=== PATIENT | female | born 1940 | race Caucasian/White ===

== ENCOUNTER → 2020-04-08 10:56 | Outpatient (CLI) | payer OTHER, SELFPAY ==
--- NOTE | 2020-04-08 | DI.RAD.S_ITS ---
PROCEDURE: FL BARIUM SWALLOW INDICATIONS: COUGH COMPARISON: None. FINDINGS: Function: There is normal esophageal peristalsis. No elicited gastroesophageal reflux. Morphology: Air-contrast images demonstrate normal mucosal morphology. Single contrast views show no esophageal strictures, extrinsic mass effects, or diverticula. Limited images of the stomach demonstrate normal appearance. Note was made of a small noninflamed proximal transverse duodenal diverticulum, measuring approximately 4 cm in maximal dimension. IMPRESSION: Source of recurrent cough is not found. Incidental finding of a 4 cm proximal transverse duodenal diverticulum. These structures are generally asymptomatic unless inflamed. This diverticulum shows no evidence of inflammation or retention of internal debris. It is considered an incidental finding without need for follow-up. Dictated by: Dk Cabral M.D. on 04/08/2020 at 16:45 Approved by: Dk Cabral M.D. on 04/08/2020 at 16:48
== END ==
PROVIDERS: Family Provider Family Medicine; Referring Provider Internal Medicine Pulmonary Disease; Visit Provider Internal Medicine Pulmonary Disease
DX: R05 Cough (principal); K57.10 Diverticulosis of small intestine without perforation or abscess without bleeding
CPT/HCPCS: 74220

== ENCOUNTER → 2020-08-11 14:55 | Outpatient (CLI) | payer OTHER, SELFPAY ==
--- NOTE | 2020-08-11 14:57 | DI.MRI.S_ITS ---
PROCEDURE: MR CERVICAL SPINE WO CON INDICATIONS: Cervicalgia TECHNIQUE: Noncontrast sagittal T1 spin echo and T2 fast spin echo, sagittal STIR, foraminal oblique sagittal T2 fast spin echo, and axial gradient echo or T2 fast spin echo through the cervical spine. COMPARISON: None. FINDINGS: Image quality: Excellent. Alignment and Curvature: There is trace retrolisthesis of C5 on C6. Osseous fusion is present at C3-4. Bone Marrow: Marrow demonstrates normal overall signal. Spinal Cord: Visualized spinal cord has normal size and signal. No cerebellar tonsillar herniation. Paraspinous Soft Tissues: No paravertebral masses. Prevertebral soft tissues are normal in thickness. Discs: Moderate to severe desiccation is present throughout the cervical spine. C2-C3: Minimal disc bulge without spinal stenosis or foraminal narrowing. C3-C4: Mild disc bulge with mild spinal stenosis. No foraminal narrowing. C4-C5: Mild disc bulge with superimposed posterior left posterior paracentral protrusion. There is moderate spinal stenosis. There is compromise of the left lateral recess secondary to protrusion. Moderate left foraminal narrowing and uncovertebral hypertrophy. C5-C6: Mild disc bulge with moderate to severe spinal stenosis. Mild bilateral foraminal narrowing with uncovertebral hypertrophy. C6-C7: Mild disc bulge with minimal spinal stenosis. Mild left and minimal to mild right foraminal narrowing with uncovertebral hypertrophy. C7-T1: Minimal disc bulge without mass spinal stenosis. Mild to moderate right foraminal narrowing with uncovertebral hypertrophy parietal IMPRESSION: 1. Multilevel disc bulges noting posterior central protrusion and C4-5. The latter is causing compromise the left lateral recess. 2. Foraminal narrowing most prominent at C4-5 secondary to uncovertebral arthropathy. Dictated by: Althea Jaramillo M.D. on 08/12/2020 at 9:57 Approved by: Althea Jaramillo M.D. on 08/12/2020 at 10:18
== END ==
PROVIDERS: Family Provider Family Medicine; PCP Family Medicine; Referring Provider Family Medicine; Visit Provider Family Medicine
DX: M50.221 Other cervical disc displacement at C4-C5 level (principal); M47.812 Spondylosis without myelopathy or radiculopathy, cervical region; M48.02 Spinal stenosis, cervical region; G62.9 Polyneuropathy, unspecified
CPT/HCPCS: 72141

== ENCOUNTER → 2020-12-11 11:36 | Outpatient (CLI) | payer OTHER, SELFPAY | PROVIDERS: Family Provider Family Medicine; PCP Family Medicine; Referring Provider Family Medicine; Visit Provider Family Medicine | DX: Z78.0 Asymptomatic menopausal state (principal); Z90.722 Acquired absence of ovaries, bilateral | CPT/HCPCS: 77080 ==

== ENCOUNTER → 2021-01-20 16:38 | Outpatient (CLI) | payer OTHER, SELFPAY ==
--- NOTE | 2021-01-20 16:40 | DI.MG.S_ITS ---
BILATERAL DIGITAL SCREENING MAMMOGRAM 3D/2D WITH CAD: 01/20/2021 CLINICAL: Routine screening. Family history of breast cancer. Comparison is made to exams dated: 11/27/2019 mammogram, 08/09/2018 mammogram, 07/19/2017 mammogram, 07/10/2015 mammogram, and 04/07/2013 mammogram - [facility]. The tissue of both breasts is predominantly fatty. Current study was also evaluated with a Computer Aided Detection (CAD) system. There are benign calcifications in both breasts. No significant masses, calcifications, or other findings are seen in either breast. There has been no significant interval change. IMPRESSION: BENIGN There is no mammographic evidence of malignancy. A 1 year screening mammogram is recommended. This exam was interpreted at Station ID: [id number]. NOTE: For mammograms, a report in lay terms will be sent to the patient. Approximately 15% of breast malignancies will not be visualized mammographically. In the management of a palpable breast mass, a negative mammogram must not discourage biopsy of a clinically suspicious lesion. Electronically Signed By: Gerardo de león/avtar:01/21/2021 09:26:34 letter sent: Normal Exam ACR BI-RADS Category 2: Benign Finding(s) 3342F
== END ==
PROVIDERS: Family Provider Family Medicine; PCP Family Medicine; Referring Provider Family Medicine; Visit Provider Family Medicine
DX: Z12.31 Encounter for screening mammogram for malignant neoplasm of breast (principal); Z80.3 Family history of malignant neoplasm of breast
CPT/HCPCS: 77063; 77067

== ENCOUNTER → 2021-04-22 09:50 | Outpatient (CLI) | payer OTHER, SELFPAY ==
[2021-04-22 11:56] LABS: COVID19 -Nasal RAPID Negative (Negative)
== END ==
PROVIDERS: Family Provider Family Medicine; PCP Family Medicine; Visit Provider Surgery
DX: Z01.812 Encounter for preprocedural laboratory examination (principal); Z20.822 Contact with and (suspected) exposure to COVID-19; R10.13 Epigastric pain
CPT/HCPCS: 87635; 99213

== ENCOUNTER 2021-04-25 06:36 | Day surgery (SDC) | payer OTHER, SELFPAY ==
[2021-04-25] VITALS (7 sets, daily range): BP systolic 89–144; BP diastolic 31–67; PULSE 57–63; RESP 12–20; TEMP 36.2–36.4; O2SAT 94–98; BMI 24.1
--- NOTE | 2021-04-25 | PATH_ITS ---
[facility] Accession Number: [id number] . 01 Material submitted: . PART A: gastrointestinal site - ANTRUM PART B: gastrointestinal site - GASTRIC POLYPS PART C: esophagus - DISTAL ESOPHAGEAL BIOPSY . 02 Diagnosis: A. Stomach, Antrum, Biopsies: Antral mucosa with mild reactive gastropathy. Negative for Helicobacter by immunohistochemistry. Negative for intestinal metaplasia. Negative for dysplasia and malignancy. . B. Stomach, Polyps, Biopsies: Fundic gland polyps. No evidence of Helicobacter on H/E stain. Negative for intestinal metaplasia. Negative for dysplasia and malignancy. . C. Distal Esophagus, Biopsy: Squamocolumnar junctional mucosa with mild active inflammation. Negative for intestinal metaplasia. Negative for dysplasia and malignancy. . MRV 04/29/2021 1419 Local . 02 Electronically signed: . Katie Glasgow MD, Pathologist NPI- [id number] . 01 Gross description: . Part A: ANTRUM: Received in formalin are 4 fragment(s) of gray, soft tissue measuring 0.3 x 0.3 x 0.2 cm to 0.1 x 0.1 x 0.1 cm submitted entirely in 1 cassette(s) Part B: GASTRIC POLYPS: Received in formalin are 2 fragment(s) of gray, soft tissue measuring 0.4 x 0.3 x 0.3 cm to 0.3 x 0.3 x 0.3 cm submitted entirely in 1 cassette(s) Part C: DISTAL ESOPHAGEAL BIOPSY: Received in formalin are 2 fragment(s) of gray, soft tissue measuring 0.4 x 0.3 x 0.1 cm to 0.3 x 0.3 x 0.2 cm submitted entirely in 1 cassette(s) /QBJ 04/26/2021 1222 Local . 02 Microscopic: . A. An immunohistochemical stain was performed to evaluate for Helicobacter organisms and is negative. The control stain showed appropriate reactivity. . C. An AB/PAS stain is performed to evaluate for fungal organisms and is negative. The control stain showed appropriate reactivity. . * This test was developed and its performance characteristics determined by [facility]. It has not been cleared or approved by the U.S. Food and Drug Administration. The FDA has determined that such clearance or approval is not necessary. This test is used for clinical purposes. It should not be regarded as investigational or for research. . 02 Pathologist provided ICD-10: R10.9 . 02 CPT . 075236, 545266, 093225, 818069, C25680 Performed at: 01 [facility] [address] [id number] MD Dwight Estrada MD Phone: [phone] Performed at: 02 [facility] [address] [place] [id number] MD Katie Glasgow MD Phone: [phone]
[2021-04-25] MEDS: LACTATED RINGERS 1,000 ML 84 ML IV (07:39)
--- NOTE | 2021-04-25 08:13 | PM.PREOP ---
Pre-operative Note COVID-19 COVID-19 status: Negative Result date/Date tested (Pos, Neg/Pending): 04/24/21 Interval Note History & Physical reviewed/Exam performed by Physician: Yes Changes to H&P: No ASA Class (for procedural sedation): II
[2021-04-25] MEDS: LIDOCAINE 4% SOLN 50 ML 20 ML TOP (08:25)
[2021-04-25] MEDS: fentaNYL 250 MCG/5 ML INJ IV (08:25)
--- NOTE | 2021-04-25 08:40 | PM.OP.EGD ---
Operative Date/Time/Diagnoses Date of procedure: 04/25/21 Time of procedure: 08:40 Pre-op diagnosis: Dyspepsia Post-op diagnosis: same Procedure & Clinicians Study performed: Esophagogastroduodenoscopy Same procedure as scheduled: Yes Indications: Dyspepsia Surgeon: Roger Perdomo Procedure Notes SCOAP/Timeout: Yes Procedure in detail: A timeout was performed. A bite blocked was placed. The patient was positioned in the left lateral decubitus position. The endoscope was inserted through the bite block and passed through the esophagus and stomach and into the duodenum. The duodenal mucosa appeared normal. Photograph was taken. The scope was withdrawn into the duodenal bulb and no abnormality was noted. The scope was withdrawn into the stomach. There was mild to moderate antritis. Random biopsies were taken of the antrum. The proximal stomach demonstrated numerous polyps. Biopsies were taken from to randomly selected polyps. The scope was retroflexed and no hiatal hernia was seen. The scope was withdrawn into the esophagus and a few short salmon-colored patches of mucosa were noted at the GE junction and biopsies were taken from the salmon-colored portion. The remainder of the esophagus was normal. The scope was withdrawn. The patient was awakened and brought to recovery. Sedation minutes: 14 Post-procedure Recommendations: Will call with biopsy results Disposition: PACU
[2021-04-25] MEDS: MIDAZOLAM 5 MG/5 ML VIAL IV (08:48)
--- NOTE | 2021-04-25 09:01 | SUR.PHASEI ---
SBAR report at bedside to Davina FIGUEROA.
--- NOTE | 2021-04-25 09:32 | SUR.PHASEII ---
PT ready for DC. stable on feet, independently dressed self. escorted to ed in by maryana amaro
== END 2021-04-25 09:33 | disposition home or self-care (01) ==
PROVIDERS: Family Provider Family Medicine; PCP Family Medicine; Referring Provider Surgery; Visit Provider Surgery
PROC: 0DJ08ZZ Inspection of Upper Intestinal Tract, Via Natural or Artificial Opening Endoscopic (ICD-10-PCS; CPT 43235; principal; 2021-04-25 07:45)
DX: K20.90 Esophagitis, unspecified without bleeding (principal); K31.7 Polyp of stomach and duodenum; K31.9 Disease of stomach and duodenum, unspecified
CPT/HCPCS: 43239; 99152; J2250; J3010

== ENCOUNTER → 2021-05-01 10:58 | Outpatient (CLI) | payer OTHER, SELFPAY ==
[2021-05-01 11:29] LABS: BUN Creatinine Ratio 16.8 (6-22); Blood Urea Nitrogen 19 mg/dL (7-17)
--- NOTE | 2021-05-01 12:24 | DI.CT.S_ITS ---
PROCEDURE: CT ABDOMEN PELVIS W CON INDICATIONS: abdominal pain unspecified TECHNIQUE: After the administration of oral and intravenous contrast, axial sections were acquired from the lung bases to the pubic symphysis. Coronal and sagittal reformats were performed. For radiation dose reduction, the following was used: automated exposure control, adjustment of mA and/or kV according to patient size. COMPARISON:None. FINDINGS: Image quality: Excellent. Lung bases: Unremarkable. Heart: No significant findings. ABDOMEN: Liver: Unremarkable. Gallbladder: Is surgically absent Biliary ducts: Unremarkable. Pancreas: Unremarkable. Spleen: Unremarkable. Adrenal Glands: Unremarkable. Kidneys and Ureters: Unremarkable. Stomach and Bowel: Yoshi fundoplication. Stomach, small bowel loops, and colon are unremarkable. Appendix not seen. No evidence of appendicitis. Peritoneum: No abnormal intraperitoneal fluid. No free air. Ventral Wall: No hernia. Abdominal Nodes: No retroperitoneal or mesenteric adenopathy by size criteria. Vessels: Aorta and inferior vena cava are normal in size. PELVIS: Pelvic Organs: Unremarkable. Bladder: Unremarkable. Pelvic Nodes: No enlarged lymph nodes. Miscellaneous: No inguinal hernias are seen. Bones: Unremarkable. IMPRESSION: 1. No acute process. 2. Appendix not seen. No evidence of appendicitis. 3. Postsurgical sequelae. Dictated by: Lewis Maciel M.D. on 05/01/2021 at 13:26 Approved by: Lewis Maciel M.D. on 05/01/2021 at 13:27
== END ==
PROVIDERS: Family Provider Family Medicine; PCP Family Medicine; Referring Provider Family Medicine; Visit Provider Family Medicine
DX: R10.9 Unspecified abdominal pain (principal)
CPT/HCPCS: 36415; 74177; 82565; 84520

== ENCOUNTER → 2021-09-29 10:17 | Outpatient (CLI) | payer OTHER, SELFPAY ==
--- NOTE | 2021-09-29 | DI.RAD.S_ITS ---
PROCEDURE: XR CHEST 2V INDICATIONS: COUGH TECHNIQUE: 2 views of the chest were acquired. COMPARISON: None. FINDINGS: Surgical changes and devices: None. Lungs and pleura: Lungs are clear. No pleural effusions or pneumothorax. Mediastinum: Mediastinal contours are normal. Heart size is normal. Atherosclerotic vascular calcification noted in the aortic arch. Bones and chest wall: No suspicious bony abnormalities. Soft tissues appear unremarkable. IMPRESSION: No acute cardiopulmonary findings Approved by: Harry Brown M.D. on 09/29/2021 at 12:38
== END ==
PROVIDERS: Family Provider Family Medicine; PCP Family Medicine; Referring Provider Family Medicine; Visit Provider Family Medicine
DX: R05.9 Cough, unspecified (principal)
CPT/HCPCS: 71046

== ENCOUNTER 2021-12-08 09:45 | Outpatient (RCR) | payer OTHER, SELFPAY ==
--- NOTE | 2021-10-15 11:07 | PT.OIE ---
Current Diagnoses Unspecified mononeuropathy of bilateral lower limbs (10/15/21) Pain in right foot (10/15/21) Pain in left foot (10/15/21) Past Surgical History (Last Updated 04/22/21 @ 09:23 by Yaa Yates RN) H/O neck surgery H/O rotator cuff surgery History of colon resection History of hysterectomy Hx of cholecystectomy Status post hysterectomy Visit Care Team Role Provider Type Dennis Collins MD Family Provider Physician Primary Care Provider Specialty: Family Practice Address: [address] [place] [address], [facility] [place], [address] Email: [email or web address] Augustine Clemens DPM Attending Provider Non-Staff Referring Provider Specialty: Podiatry Address: [address] [place] [address], [phone] Email: Physical Therapy Initial Evaluation PT-OP-A Visit Information Start: 10/13/21 12:48 Freq: Status: Active Protocol: Document 10/15/21 09:01 AMB (Rec: 10/15/21 09:33 AMB [id number]) Out-Patient Physical Therapy Visit Information Visit Information Visit Type Initial Evaluation Visit Start Time 09:00 Visit Stop Time 09:45 Total Visit Minutes 45 Visit Number 1 PT-OP-B Current Condition Start: 10/13/21 12:48 Freq: Status: Active Protocol: Document 10/15/21 09:01 AMB (Rec: 10/15/21 09:33 AMB [id number]) Current Condition History of Current Condition Onset Date 2 years Current Complaints Bilateral foot pain History of Current Condition Neuropathy limits walking and line dancing. Pain increases as she walks. Walks about a mile. Pain escalates with activity. Takes about 30 minutes for pain to decrease back down to baseline, but never really goes away. Does have history of plantar fasciitis bilaterally, but isn 't currently in a flare, last flare was 2 years ago. NO falls in the last 6 months but does tend to touch onto hernandez , not currently using AD but does have trekking poles if she needs. Pain along medial calf bilaterally for a couple years with pressure - getting a massage with pedicure is very painful in that one particular spot. Also has sharp shooting pain when sitting in the recliner, but comes on fast and then it is gone, not consistent, that is the pain in the toes. The pain with walking is in the arch. Treatment Goals Patient/Caregiver Goals Reduce foot pain with walking and shooting pain in toes with sitting in recliner Prior Functional Status Baseline Function- ADL's Independent Baseline Function- Mobility Independent Current Functional Impairments (Reported) Functional Limitations- ADL's Walks shorter distances because of pain Personal Factors Other Personal Factors That May Effect [place], History cervical fusion Therapy/Recovery in . PT-OP-C Subjective Start: 10/13/21 12:48 Freq: Status: Active Protocol: Document 10/15/21 09:00 AMB (Rec: 10/19/21 11:28 AMB [id number]) Patient Questionnaires Foot & Ankle Ability Measure- ADL and Sports FAAM-ADL Score 51 FAAM-ADL Impairment 20 to 39% Impaired (Score 50- 66) Lower Extremity Functional Scale LEFS Score 54 LEFS Impairment 20 to 39% Impaired (Score 48- 62) OP-PT Pain Assessment Comments Pain Comments Heel pain with walking/dancing ; shooting into toes intermittently chente with recliner, tingling up to knees PT-OP-D Balance Start: 10/13/21 12:48 Freq: Status: Active Protocol: Document 10/15/21 09:00 AMB (Rec: 10/19/21 11:28 AMB [id number]) Balance Tests mCTSIB mCTSIB Position 1 30 seconds + mCTSIB Position 2 30 seconds, ankle sway Single Limb Standing Single Limb- Right 3 seconds Single Limb- Left 3 seconds PT-OP-K Range of Motion Start: 10/13/21 12:48 Freq: Status: Active Protocol: Document 10/15/21 09:00 AMB (Rec: 10/19/21 11:28 AMB [id number]) Ankle and Foot Goniometric Range of Motion Ankle and Foot Right Passive Dorsiflexion with Knee Flexed 5 Left Passive Dorsiflexion with Knee Extended 5 PT-OP-M Strength Start: 10/13/21 12:48 Freq: Status: Active Protocol: Document 10/15/21 09:00 AMB (Rec: 10/19/21 11:28 AMB [id number]) Ankle/Foot Strength Ankle and Foot Manual Muscle Testing Right Dorsiflexion (L4) 4+ Good+ Plantarflexion (S1) 4 Good Inversion 4+ Good+ Eversion (S1) 4+ Good+ Left Dorsiflexion (L4) 4+ Good+ Plantarflexion (S1) 4 Good Inversion 4+ Good+ Eversion (S1) 4+ Good+ Toe Strength Toe Manual Muscle Testing Left Great Toe Flexion 4- Good- Extension 4+ Good+ Comments pain with toe flexion Right Great Toe Flexion 4- Good- Extension 4+ Good+ Comments pain with toe flexion PT-OP-T Assessment and Plan Start: 10/13/21 12:48 Freq: Status: Active Protocol: Document 10/15/21 09:00 AMB (Rec: 10/19/21 11:39 AMB [id number]) Physical Therapy Assessment Rehab Potential Rehabilitation Potential Good Goals Three Impairment Balance Fdc Goal (LTG) Ariel will show improved balance by increasing her single leg stance time to 5 seconds. LTG Duration 8 weeks Two Impairment Walking Short Term Goal (STG) Karena will walk for 10 minutes without heel pain. STG Duration 4 weeks Metal Engraver Goal (LTG) Karena will walk over uneven surfaces without pain/loss of balance. LTG Duration 8 weeks One Impairment Pain Short Term Goal (STG) Karena will sit in her recliner for 30 minutes without shooting pain. STG Duration 4 weeks Fdc Goal (LTG) Karena will be independent and consistent with her HEP. LTG Duration 8 weeks Assessment Summary Assessment Karena attends physical therapy with history of neuropathy and distant history of plantar fasciitis. She has shooting pain in her toes with seated activities, and pain in her arches with activity. She also has stiffness/pain first thing in the morning. She presented with poor single leg stance balance, but was able to maintain narrow base eyes closed with increased ankle sway. She did have decreased strength in her foot intrinsics. She will benefit from physical therapy to reduce her pain, improve her foot strength, flexibility and balance. Physical Therapy Plan Frequency and Duration Frequency of Treatment 2x/Week Duration of Treatment 8 weeks Plan of Care Start Date 10/15/21 Plan of Care End Date 12/10/21 Therapeutic Interventions Therapeutic Interventions Balance Training,Gait Training ,Home Exercise Program,Joint Mobilizations,Manual Therapy, Neuromuscular Re-education, Self-Care/Home Management,Soft Tissue Mobilization, Therapeutic Activities, Therapeutic Exercises Modalities Cold Pack/Ice Massage,Electric Stimulation,Hot Packs, Ultrasound Next Visit Focus/Plan Next Note Type Treatment Note Next Visit Plan Reassess balance HEP, follow up if sx reduced with pillow prop to reduce neural tension in recliner
--- NOTE | 2021-10-15 11:08 | PT.OPPOC ---
Physical, Occupational & Speech Therapy At [facility] Current Diagnoses Unspecified mononeuropathy of bilateral lower limbs (10/15/21) Pain in right foot (10/15/21) Pain in left foot (10/15/21) Visit Care Team Role Provider Type Dennis Collins MD Family Provider Physician Primary Care Provider Specialty: Family Practice Address: [address] [place] [address], [facility], [address] Email: [email or web address] Clemens DPM Attending Provider Non-Staff Referring Provider Specialty: Podiatry Address: [address] [place] [address], [phone] Email: Plan Of Care PT-OP-T Assessment and Plan Start: 10/13/21 12:48 Freq: Status: Active Protocol: Document 10/15/21 09:00 AMB (Rec: 10/19/21 11:39 AMB [id number]) Physical Therapy Assessment Rehab Potential Rehabilitation Potential Good Goals Three Impairment Balance Group Home Goal (LTG) Ariel will show improved balance by increasing her single leg stance time to 5 seconds. LTG Duration 8 weeks Two Impairment Walking Short Term Goal (STG) Karena will walk for 10 minutes without heel pain. STG Duration 4 weeks Bill Adjuster Goal (LTG) Karena will walk over uneven surfaces without pain/loss of balance. LTG Duration 8 weeks One Impairment Pain Short Term Goal (STG) Karena will sit in her recliner for 30 minutes without shooting pain. STG Duration 4 weeks Group Home Goal (LTG) Karena will be independent and consistent with her HEP. LTG Duration 8 weeks Assessment Summary Assessment Karena attends physical therapy with history of neuropathy and distant history of plantar fasciitis. She has shooting pain in her toes with seated activities, and pain in her arches with activity. She also has stiffness/pain first thing in the morning. She presented with poor single leg stance balance, but was able to maintain narrow base eyes closed with increased ankle sway. She did have decreased strength in her foot intrinsics. She will benefit from physical therapy to reduce her pain, improve her foot strength, flexibility and balance. Physical Therapy Plan Frequency and Duration Frequency of Treatment 2x/Week Duration of Treatment 8 weeks Plan of Care Start Date 10/15/21 Plan of Care End Date 12/10/21 Therapeutic Interventions Therapeutic Interventions Balance Training,Gait Training ,Home Exercise Program,Joint Mobilizations,Manual Therapy, Neuromuscular Re-education, Self-Care/Home Management,Soft Tissue Mobilization, Therapeutic Activities, Therapeutic Exercises Modalities Cold Pack/Ice Massage,Electric Stimulation,Hot Packs, Ultrasound Next Visit Focus/Plan Next Note Type Treatment Note Next Visit Plan Reassess balance HEP, follow up if sx reduced with pillow prop to reduce neural tension in recliner Plan of Care Dates Plan of Care Start Date 10/15/21 Plan of Care End Date 12/10/21 Electronically Signed by: Laura Scott, PT 10/21/21 0318 If you are in agreement with this Plan of Care, please return a signed and dated copy. I have reviewed this Plan of Care and certify that the skilled therapy services above are required to meet the patient?s needs. Physician Signature Date Printed Name and Credentials Clinical Instructor Signature Printed Name and Credentials
--- NOTE | 2021-10-22 12:11 | PT.OTN ---
Current Diagnoses Unspecified mononeuropathy of bilateral lower limbs (10/22/21) Pain in right foot (10/22/21) Pain in left foot (10/22/21) Physical Therapy Treatment Note PT-OP-A Visit Information Start: 10/13/21 12:48 Freq: Status: Active Protocol: Document 10/22/21 09:41 AW (Rec: 10/22/21 12:11 AW [id number]) Out-Patient Physical Therapy Visit Information Visit Information Visit Type Treatment Note Visit Start Time 11:15 Visit Stop Time 12:00 Total Visit Minutes 45 Visit Number 2 Number of REGISTER REPAIRER Visits 0 Evaluation Information Evaluation Date 10/15/21 PT-OP-B Current Condition Start: 10/13/21 12:48 Freq: Status: Active Protocol: Document 10/15/21 09:01 AMB (Rec: 10/15/21 09:33 AMB [id number]) Current Condition History of Current Condition Onset Date 2 years Current Complaints Bilateral foot pain History of Current Condition Neuropathy limits walking and line dancing. Pain increases as she walks. Walks about a mile. Pain escalates with activity. Takes about 30 minutes for pain to decrease back down to baseline, but never really goes away. Does have history of plantar fasciitis bilaterally, but isn 't currently in a flare, last flare was 2 years ago. NO falls in the last 6 months but does tend to touch onto hernandez , not currently using AD but does have trekking poles if she needs. Pain along medial calf bilaterally for a couple years with pressure - getting a massage with pedicure is very painful in that one particular spot. Also has sharp shooting pain when sitting in the recliner, but comes on fast and then it is gone, not consistent, that is the pain in the toes. The pain with walking is in the arch. Treatment Goals Patient/Caregiver Goals Reduce foot pain with walking and shooting pain in toes with sitting in recliner Prior Functional Status Baseline Function- ADL's Independent Baseline Function- Mobility Independent Current Functional Impairments (Reported) Functional Limitations- ADL's Walks shorter distances because of pain Personal Factors Other Personal Factors That May Effect [place], History cervical fusion Therapy/Recovery in . PT-OP-C Subjective Start: 10/13/21 12:48 Freq: Status: Active Protocol: Document 10/22/21 09:41 AW (Rec: 10/22/21 12:11 AW [id number]) OP-PT Subjective Patient Comments Patient Comments I tried propping up on pillows in my recliner but did not notice a difference. PT-OP-D Balance Start: 10/13/21 12:48 Freq: Status: Active Protocol: Document 10/15/21 09:00 AMB (Rec: 10/19/21 11:28 AMB [id number]) Balance Tests mCTSIB mCTSIB Position 1 30 seconds + mCTSIB Position 2 30 seconds, ankle sway Single Limb Standing Single Limb- Right 3 seconds Single Limb- Left 3 seconds PT-OP-K Range of Motion Start: 10/13/21 12:48 Freq: Status: Active Protocol: Document 10/15/21 09:00 AMB (Rec: 10/19/21 11:28 AMB [id number]) Ankle and Foot Goniometric Range of Motion Ankle and Foot Right Passive Dorsiflexion with Knee Flexed 5 Left Passive Dorsiflexion with Knee Extended 5 PT-OP-M Strength Start: 10/13/21 12:48 Freq: Status: Active Protocol: Document 10/15/21 09:00 AMB (Rec: 10/19/21 11:28 AMB [id number]) Ankle/Foot Strength Ankle and Foot Manual Muscle Testing Right Dorsiflexion (L4) 4+ Good+ Plantarflexion (S1) 4 Good Inversion 4+ Good+ Eversion (S1) 4+ Good+ Left Dorsiflexion (L4) 4+ Good+ Plantarflexion (S1) 4 Good Inversion 4+ Good+ Eversion (S1) 4+ Good+ Toe Strength Toe Manual Muscle Testing Left Great Toe Flexion 4- Good- Extension 4+ Good+ Comments pain with toe flexion Right Great Toe Flexion 4- Good- Extension 4+ Good+ Comments pain with toe flexion PT-OP-Q Treatments Start: 10/13/21 12:48 Freq: Status: Active Protocol: Document 10/22/21 09:41 AW (Rec: 10/22/21 12:11 AW [id number]) Cardio Equipment Recumbent Bicycle Duration (Minutes) 4 Resistance 4 Seat Position 3 Therapeutic Exercises Sitting Exercises arch lift Sitting Exercise Name arch lift Comments cued no clawing at toes; HEP foot intrinsics Sitting Exercise Name 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 Side bilateral Resistance towel scrunch irritating in toes Comments pt can use fercho at home; HEP Standing Exercises heel toe raises Standing Exercise Name heel toe raises Side bilateral Resistance AROM Equipment Used rail prn Comments HEP Manual Therapy Treatment Joint Mobilizations forefoot Joint B forefoot - interMT Comments Pt is stiff between rays 2-4 Neuro Re-Education Treatment Balance Activities tandem stance Details tandem stance Surface firm Equipment rail prn Comments - static (for HEP - walking with fingertips gliding along // (clinic only) NBOS Details NBOS Surface firm, ramos cushion Comments Firm - EO, head turns, head nods, EC Ramos cushion - EO, head turns, head nods, EC Self-Care/Home Management Treatment Education Patient Education Home Exercise Program,Pain Management Other Education Education on balance system contributions and rationale for balance training. Added foot intrinsics, tandem stance (static), and heel/toe lifts for HEP. PT-OP-T Assessment and Plan Start: 10/13/21 12:48 Freq: Status: Active Protocol: Document 10/22/21 09:41 AW (Rec: 10/22/21 12:11 AW [id number]) Physical Therapy Assessment Goals Three Impairment Balance Group Home Goal (LTG) Ariel will show improved balance by increasing her single leg stance time to 5 seconds. LTG Duration 8 weeks Two Impairment Walking Short Term Goal (STG) Karena will walk for 10 minutes without heel pain. STG Duration 4 weeks Group Home Goal (LTG) Karena will walk over uneven surfaces without pain/loss of balance. LTG Duration 8 weeks One Impairment Pain Short Term Goal (STG) Karena will sit in her recliner for 30 minutes without shooting pain. STG Duration 4 weeks Route Aide Goal (LTG) Karena will be independent and consistent with her HEP. LTG Duration 8 weeks Assessment Summary Assessment Karena responds well to education on balance systems integration. Initiated foot intrinsic and calf/ant tib strengthening today. Pt tolerated all without complaint of increased numbness or shooting pain. Physical Therapy Plan Frequency and Duration Frequency of Treatment 2x/Week Duration of Treatment 8 weeks Plan of Care Start Date 10/15/21 Plan of Care End Date 12/10/21 Therapeutic Interventions Therapeutic Interventions Balance Training,Gait Training ,Home Exercise Program,Joint Mobilizations,Manual Therapy, Neuromuscular Re-education, Self-Care/Home Management,Soft Tissue Mobilization, Therapeutic Activities, Therapeutic Exercises Modalities Cold Pack/Ice Massage,Electric Stimulation,Hot Packs, Ultrasound Next Visit Focus/Plan Next Note Type Treatment Note Next Visit Plan Reassess balance HEP, consider working on 90-degree turns and 180-degree pivot turns. Dynamic gait.
--- NOTE | 2021-10-29 11:50 | PT.OTN ---
Current Diagnoses Unspecified mononeuropathy of bilateral lower limbs (10/29/21) Pain in right foot (10/29/21) Pain in left foot (10/29/21) Physical Therapy Treatment Note PT-OP-A Visit Information Start: 10/13/21 12:48 Freq: Status: Active Protocol: Document 10/29/21 10:36 AW (Rec: 10/29/21 11:50 AW [id number]) Out-Patient Physical Therapy Visit Information Visit Information Visit Type Treatment Note Visit Start Time 10:45 Visit Stop Time 11:30 Total Visit Minutes 45 Visit Number 3 Number of ENROLLMENT REPRESENTATIVE Visits 0 Evaluation Information Evaluation Date 10/15/21 PT-OP-B Current Condition Start: 10/13/21 12:48 Freq: Status: Active Protocol: Document 10/15/21 09:01 AMB (Rec: 10/15/21 09:33 AMB [id number]) Current Condition History of Current Condition Onset Date 2 years Current Complaints Bilateral foot pain History of Current Condition Neuropathy limits walking and line dancing. Pain increases as she walks. Walks about a mile. Pain escalates with activity. Takes about 30 minutes for pain to decrease back down to baseline, but never really goes away. Does have history of plantar fasciitis bilaterally, but isn 't currently in a flare, last flare was 2 years ago. NO falls in the last 6 months but does tend to touch onto hernandez , not currently using AD but does have trekking poles if she needs. Pain along medial calf bilaterally for a couple years with pressure - getting a massage with pedicure is very painful in that one particular spot. Also has sharp shooting pain when sitting in the recliner, but comes on fast and then it is gone, not consistent, that is the pain in the toes. The pain with walking is in the arch. Treatment Goals Patient/Caregiver Goals Reduce foot pain with walking and shooting pain in toes with sitting in recliner Prior Functional Status Baseline Function- ADL's Independent Baseline Function- Mobility Independent Current Functional Impairments (Reported) Functional Limitations- ADL's Walks shorter distances because of pain Personal Factors Other Personal Factors That May Effect [id number], History cervical fusion Therapy/Recovery in . PT-OP-C Subjective Start: 10/13/21 12:48 Freq: Status: Active Protocol: Document 10/29/21 10:36 AW (Rec: 10/29/21 11:50 AW [id number]) OP-PT Subjective Patient Comments Patient Comments I did exercises for a few days and it was fine. But on the third day, I started to get muscle ripples/pulling/ ready to cramp in my feet and it really bothered my sleep. Then it started happening in my calves and I stopped the exercises. PT-OP-D Balance Start: 10/13/21 12:48 Freq: Status: Active Protocol: Document 10/15/21 09:00 AMB (Rec: 10/19/21 11:28 AMB [id number]) Balance Tests mCTSIB mCTSIB Position 1 30 seconds + mCTSIB Position 2 30 seconds, ankle sway Single Limb Standing Single Limb- Right 3 seconds Single Limb- Left 3 seconds PT-OP-K Range of Motion Start: 10/13/21 12:48 Freq: Status: Active Protocol: Document 10/15/21 09:00 AMB (Rec: 10/19/21 11:28 AMB [id number]) Ankle and Foot Goniometric Range of Motion Ankle and Foot Right Passive Dorsiflexion with Knee Flexed 5 Left Passive Dorsiflexion with Knee Extended 5 PT-OP-M Strength Start: 10/13/21 12:48 Freq: Status: Active Protocol: Document 10/15/21 09:00 AMB (Rec: 10/19/21 11:28 AMB [id number]) Ankle/Foot Strength Ankle and Foot Manual Muscle Testing Right Dorsiflexion (L4) 4+ Good+ Plantarflexion (S1) 4 Good Inversion 4+ Good+ Eversion (S1) 4+ Good+ Left Dorsiflexion (L4) 4+ Good+ Plantarflexion (S1) 4 Good Inversion 4+ Good+ Eversion (S1) 4+ Good+ Toe Strength Toe Manual Muscle Testing Left Great Toe Flexion 4- Good- Extension 4+ Good+ Comments pain with toe flexion Right Great Toe Flexion 4- Good- Extension 4+ Good+ Comments pain with toe flexion PT-OP-Q Treatments Start: 10/13/21 12:48 Freq: Status: Active Protocol: Document 10/29/21 10:36 AW (Rec: 10/29/21 11:50 AW [id number]) Cardio Equipment Recumbent Bicycle Duration (Minutes) 4 Resistance 5 Seat Position 3 Therapeutic Exercises Standing Exercises gastroc and soleus stretches Standing Exercise Name gastroc and soleus stretches Side bilateral Reps/Minutes 30SH x 4 Comments HEP Manual Therapy Treatment Joint Mobilizations forefoot Joint B forefoot - interMT Comments Pt is stiff between rays 2-4 Neuro Re-Education Treatment Balance Activities dynamic gait Details dynamic gait Surface tile Comments - Head turns on cue every three steps. Gait speed slows and pt is very hesitant. Improves slightly with increased repetition. tandem stance Details tandem stance Surface yoga mat Equipment rail prn Comments - static (for HEP - NBOS Details NBOS Surface blue airex pads on yoga mat Comments - EO, head turns, head nods, EC Self-Care/Home Management Treatment Education Patient Education Home Exercise Program Other Education Added gastroc and soleus stretches. Encouraged pt to do tandem stance without shoes at home as a progression from last week. PT-OP-T Assessment and Plan Start: 10/13/21 12:48 Freq: Status: Active Protocol: Document 10/29/21 10:36 AW (Rec: 10/29/21 11:50 AW [id number]) Physical Therapy Assessment Goals Three Impairment Balance Care Home Goal (LTG) Karena will show improved balance by increasing her single leg stance time to 5 seconds. LTG Duration 8 weeks Two Impairment Walking Short Term Goal (STG) Karena will walk for 10 minutes without heel pain. STG Duration 4 weeks Industrial Relations Commissioner Goal (LTG) Karena will walk over uneven surfaces without pain/loss of balance. LTG Duration 8 weeks One Impairment Pain Short Term Goal (STG) Karena will sit in her recliner for 30 minutes without shooting pain. STG Duration 4 weeks Care Home Goal (LTG) Karena will be independent and consistent with her HEP. LTG Duration 8 weeks Assessment Summary Assessment Karena had a negative response to heel/toe lifts which she thinks increased her foot and calf pain. Focused today on manual therapy to decrease lower quarter tone, stretches for calf, and balance work to improve proprioception. Physical Therapy Plan Frequency and Duration Frequency of Treatment 2x/Week Duration of Treatment 8 weeks Plan of Care Start Date 10/15/21 Plan of Care End Date 12/10/21 Therapeutic Interventions Therapeutic Interventions Balance Training,Gait Training ,Home Exercise Program,Joint Mobilizations,Manual Therapy, Neuromuscular Re-education, Self-Care/Home Management,Soft Tissue Mobilization, Therapeutic Activities, Therapeutic Exercises Modalities Cold Pack/Ice Massage,Electric Stimulation,Hot Packs, Ultrasound Next Visit Focus/Plan Next Note Type Treatment Note Next Visit Plan Consider working on 90-degree turns and 180-degree pivot turns. Dynamic gait. Progress balance work as able
--- NOTE | 2021-11-05 09:46 | PT.OTN ---
Current Diagnoses Unspecified mononeuropathy of bilateral lower limbs (10/29/21) Pain in right foot (10/29/21) Pain in left foot (10/29/21) Physical Therapy Treatment Note PT-OP-A Visit Information Start: 10/13/21 12:48 Freq: Status: Active Protocol: Document 10/29/21 10:36 AW (Rec: 10/29/21 11:50 AW [id number]) Out-Patient Physical Therapy Visit Information Visit Information Visit Type Treatment Note Visit Start Time 10:45 Visit Stop Time 11:30 Total Visit Minutes 45 Visit Number 3 Number of LADLE CLEANER Visits 0 Evaluation Information Evaluation Date 10/15/21 PT-OP-B Current Condition Start: 10/13/21 12:48 Freq: Status: Active Protocol: Document 10/15/21 09:01 AMB (Rec: 10/15/21 09:33 AMB [id number]) Current Condition History of Current Condition Onset Date 2 years Current Complaints Bilateral foot pain History of Current Condition Neuropathy limits walking and line dancing. Pain increases as she walks. Walks about a mile. Pain escalates with activity. Takes about 30 minutes for pain to decrease back down to baseline, but never really goes away. Does have history of plantar fasciitis bilaterally, but isn 't currently in a flare, last flare was 2 years ago. NO falls in the last 6 months but does tend to touch onto hernandez , not currently using AD but does have trekking poles if she needs. Pain along medial calf bilaterally for a couple years with pressure - getting a massage with pedicure is very painful in that one particular spot. Also has sharp shooting pain when sitting in the recliner, but comes on fast and then it is gone, not consistent, that is the pain in the toes. The pain with walking is in the arch. Treatment Goals Patient/Caregiver Goals Reduce foot pain with walking and shooting pain in toes with sitting in recliner Prior Functional Status Baseline Function- ADL's Independent Baseline Function- Mobility Independent Current Functional Impairments (Reported) Functional Limitations- ADL's Walks shorter distances because of pain Personal Factors Other Personal Factors That May Effect [place], History cervical fusion Therapy/Recovery in . PT-OP-C Subjective Start: 10/13/21 12:48 Freq: Status: Active Protocol: Document 10/29/21 10:36 AW (Rec: 10/29/21 11:50 AW [id number]) OP-PT Subjective Patient Comments Patient Comments I did exercises for a few days and it was fine. But on the third day, I started to get muscle ripples/pulling/ ready to cramp in my feet and it really bothered my sleep. Then it started happening in my calves and I stopped the exercises. PT-OP-D Balance Start: 10/13/21 12:48 Freq: Status: Active Protocol: Document 10/15/21 09:00 AMB (Rec: 10/19/21 11:28 AMB [id number]) Balance Tests mCTSIB mCTSIB Position 1 30 seconds + mCTSIB Position 2 30 seconds, ankle sway Single Limb Standing Single Limb- Right 3 seconds Single Limb- Left 3 seconds PT-OP-K Range of Motion Start: 10/13/21 12:48 Freq: Status: Active Protocol: Document 10/15/21 09:00 AMB (Rec: 10/19/21 11:28 AMB [id number]) Ankle and Foot Goniometric Range of Motion Ankle and Foot Right Passive Dorsiflexion with Knee Flexed 5 Left Passive Dorsiflexion with Knee Extended 5 PT-OP-M Strength Start: 10/13/21 12:48 Freq: Status: Active Protocol: Document 10/15/21 09:00 AMB (Rec: 10/19/21 11:28 AMB [id number]) Ankle/Foot Strength Ankle and Foot Manual Muscle Testing Right Dorsiflexion (L4) 4+ Good+ Plantarflexion (S1) 4 Good Inversion 4+ Good+ Eversion (S1) 4+ Good+ Left Dorsiflexion (L4) 4+ Good+ Plantarflexion (S1) 4 Good Inversion 4+ Good+ Eversion (S1) 4+ Good+ Toe Strength Toe Manual Muscle Testing Left Great Toe Flexion 4- Good- Extension 4+ Good+ Comments pain with toe flexion Right Great Toe Flexion 4- Good- Extension 4+ Good+ Comments pain with toe flexion PT-OP-Q Treatments Start: 10/13/21 12:48 Freq: Status: Active Protocol: Document 10/29/21 10:36 AW (Rec: 10/29/21 11:50 AW [id number]) Cardio Equipment Recumbent Bicycle Duration (Minutes) 4 Resistance 5 Seat Position 3 Therapeutic Exercises Standing Exercises gastroc and soleus stretches Standing Exercise Name gastroc and soleus stretches Side bilateral Reps/Minutes 30SH x 4 Comments HEP Manual Therapy Treatment Joint Mobilizations forefoot Joint B forefoot - interMT Comments Pt is stiff between rays 2-4 Neuro Re-Education Treatment Balance Activities dynamic gait Details dynamic gait Surface tile Comments - Head turns on cue every three steps. Gait speed slows and pt is very hesitant. Improves slightly with increased repetition. tandem stance Details tandem stance Surface yoga mat Equipment rail prn Comments - static (for HEP - NBOS Details NBOS Surface blue airex pads on yoga mat Comments - EO, head turns, head nods, EC Self-Care/Home Management Treatment Education Patient Education Home Exercise Program Other Education Added gastroc and soleus stretches. Encouraged pt to do tandem stance without shoes at home as a progression from last week. PT-OP-T Assessment and Plan Start: 10/13/21 12:48 Freq: Status: Active Protocol: Document 10/29/21 10:36 AW (Rec: 10/29/21 11:50 AW [id number]) Physical Therapy Assessment Goals Three Impairment Balance Usp Goal (LTG) Karena will show improved balance by increasing her single leg stance time to 5 seconds. LTG Duration 8 weeks Two Impairment Walking Short Term Goal (STG) Karena will walk for 10 minutes without heel pain. STG Duration 4 weeks Hooker Machine Tender Goal (LTG) Karena will walk over uneven surfaces without pain/loss of balance. LTG Duration 8 weeks One Impairment Pain Short Term Goal (STG) Karena will sit in her recliner for 30 minutes without shooting pain. STG Duration 4 weeks Usp Goal (LTG) Karena will be independent and consistent with her HEP. LTG Duration 8 weeks Assessment Summary Assessment Karena had a negative response to heel/toe lifts which she thinks increased her foot and calf pain. Focused today on manual therapy to decrease lower quarter tone, stretches for calf, and balance work to improve proprioception. Physical Therapy Plan Frequency and Duration Frequency of Treatment 2x/Week Duration of Treatment 8 weeks Plan of Care Start Date 10/15/21 Plan of Care End Date 12/10/21 Therapeutic Interventions Therapeutic Interventions Balance Training,Gait Training ,Home Exercise Program,Joint Mobilizations,Manual Therapy, Neuromuscular Re-education, Self-Care/Home Management,Soft Tissue Mobilization, Therapeutic Activities, Therapeutic Exercises Modalities Cold Pack/Ice Massage,Electric Stimulation,Hot Packs, Ultrasound Next Visit Focus/Plan Next Note Type Treatment Note Next Visit Plan Consider working on 90-degree turns and 180-degree pivot turns. Dynamic gait. Progress balance work as able
--- NOTE | 2021-11-05 12:14 | PT.OTN ---
Current Diagnoses Unspecified mononeuropathy of bilateral lower limbs (11/05/21) Pain in right foot (11/05/21) Pain in left foot (11/05/21) Physical Therapy Treatment Note PT-OP-A Visit Information Start: 10/13/21 12:48 Freq: Status: Active Protocol: Document 11/05/21 09:00 AW (Rec: 11/05/21 11:21 AW [id number]) Out-Patient Physical Therapy Visit Information Visit Information Visit Type Treatment Note Visit Start Time 10:30 Visit Stop Time 11:15 Total Visit Minutes 45 Visit Number 4 Number of CREDIT ANALYST Visits 0 Evaluation Information Evaluation Date 10/15/21 PT-OP-B Current Condition Start: 10/13/21 12:48 Freq: Status: Active Protocol: Document 10/15/21 09:01 AMB (Rec: 10/15/21 09:33 AMB [id number]) Current Condition History of Current Condition Onset Date 2 years Current Complaints Bilateral foot pain History of Current Condition Neuropathy limits walking and line dancing. Pain increases as she walks. Walks about a mile. Pain escalates with activity. Takes about 30 minutes for pain to decrease back down to baseline, but never really goes away. Does have history of plantar fasciitis bilaterally, but isn 't currently in a flare, last flare was 2 years ago. NO falls in the last 6 months but does tend to touch onto hernandez , not currently using AD but does have trekking poles if she needs. Pain along medial calf bilaterally for a couple years with pressure - getting a massage with pedicure is very painful in that one particular spot. Also has sharp shooting pain when sitting in the recliner, but comes on fast and then it is gone, not consistent, that is the pain in the toes. The pain with walking is in the arch. Treatment Goals Patient/Caregiver Goals Reduce foot pain with walking and shooting pain in toes with sitting in recliner Prior Functional Status Baseline Function- ADL's Independent Baseline Function- Mobility Independent Current Functional Impairments (Reported) Functional Limitations- ADL's Walks shorter distances because of pain Personal Factors Other Personal Factors That May Effect [place], History cervical fusion Therapy/Recovery in . PT-OP-C Subjective Start: 10/13/21 12:48 Freq: Status: Active Protocol: Document 11/05/21 09:00 AW (Rec: 11/05/21 11:21 AW [id number]) OP-PT Subjective Patient Comments Patient Comments Stretches at home went fine and did not make my symptoms worse. PT-OP-D Balance Start: 10/13/21 12:48 Freq: Status: Active Protocol: Document 10/15/21 09:00 AMB (Rec: 10/19/21 11:28 AMB [id number]) Balance Tests mCTSIB mCTSIB Position 1 30 seconds + mCTSIB Position 2 30 seconds, ankle sway Single Limb Standing Single Limb- Right 3 seconds Single Limb- Left 3 seconds PT-OP-K Range of Motion Start: 10/13/21 12:48 Freq: Status: Active Protocol: Document 10/15/21 09:00 AMB (Rec: 10/19/21 11:28 AMB [id number]) Ankle and Foot Goniometric Range of Motion Ankle and Foot Right Passive Dorsiflexion with Knee Flexed 5 Left Passive Dorsiflexion with Knee Extended 5 PT-OP-M Strength Start: 10/13/21 12:48 Freq: Status: Active Protocol: Document 10/15/21 09:00 AMB (Rec: 10/19/21 11:28 AMB [id number]) Ankle/Foot Strength Ankle and Foot Manual Muscle Testing Right Dorsiflexion (L4) 4+ Good+ Plantarflexion (S1) 4 Good Inversion 4+ Good+ Eversion (S1) 4+ Good+ Left Dorsiflexion (L4) 4+ Good+ Plantarflexion (S1) 4 Good Inversion 4+ Good+ Eversion (S1) 4+ Good+ Toe Strength Toe Manual Muscle Testing Left Great Toe Flexion 4- Good- Extension 4+ Good+ Comments pain with toe flexion Right Great Toe Flexion 4- Good- Extension 4+ Good+ Comments pain with toe flexion PT-OP-Q Treatments Start: 10/13/21 12:48 Freq: Status: Active Protocol: Document 11/05/21 09:00 AW (Rec: 11/05/21 11:21 AW [id number]) Cardio Equipment Recumbent Bicycle Duration (Minutes) 4 Resistance 5 Seat Position 3 Therapeutic Exercises Sitting Exercises resisted PF Sitting Exercise Name resisted PF Side bilateral Resistance TB2 Reps/Minutes 2x15 Comments clinic only Standing Exercises gastroc and soleus stretches Standing Exercise Name gastroc and soleus stretches Side bilateral Reps/Minutes 30SH Comments review heel toe raises Standing Exercise Name heel toe raises - seated today and for HEP Side bilateral Resistance AROM Equipment Used rail prn Comments HEP Manual Therapy Treatment Soft Tissue Mobilization ant tib/gastroc/soleus Body Location ant tib/gastroc/soleus Mobilization Type Strumming,Sustained Pressure, Trigger Point Release Intensity/Depth Moderate Joint Mobilizations talocrural Joint talocrural Direction A>P talus Grade III Body Position Supine Comments Pt noted tightness at anterior ankle and felt talar glides helped. forefoot Joint B forefoot - interMT Comments Pt is stiff between rays 2-4 - improving with manual Neuro Re-Education Treatment Balance Activities dynamic gait Details dynamic gait Surface tile Comments - Head turns on PT cue and then on pt's own cue every three steps. Gait speed slows and pt goes into high guard position with head turns but improves with repetition. tandem stance Details tandem stance Surface firm - socks only Equipment rail prn Comments - no shoes for HEP Self-Care/Home Management Treatment Education Patient Education Home Exercise Program Other Education Added seated heel-toe raise and tandem stance without shoes. Education on expectations for therapy to reduce lower leg resting muscle tone, improve blood flow to neural structures via movement and strengthening, and to improve balance. PT-OP-T Assessment and Plan Start: 10/13/21 12:48 Freq: Status: Active Protocol: Document 11/05/21 09:00 AW (Rec: 11/05/21 11:21 AW [id number]) Physical Therapy Assessment Goals Three Impairment Balance Intermediate Goal (LTG) Karena will show improved balance by increasing her single leg stance time to 5 seconds. LTG Duration 8 weeks Two Impairment Walking Short Term Goal (STG) Karena will walk for 10 minutes without heel pain. STG Duration 4 weeks Intermediate Goal (LTG) Karena will walk over uneven surfaces without pain/loss of balance. LTG Duration 8 weeks One Impairment Pain Short Term Goal (STG) Karena will sit in her recliner for 30 minutes without shooting pain. STG Duration 4 weeks Intermediate Goal (LTG) Karena will be independent and consistent with her HEP. LTG Duration 8 weeks Assessment Summary Assessment Karena worked on resisted plantar flexion in long- sitting and heel/toe raises in sitting. She will monitor for increase in sensation disturbance and discontinue at home if symptoms increase. Continued with manual therapy to reduce lower leg resting tone. Continued with balance work which was progressed for home program. Physical Therapy Plan Frequency and Duration Frequency of Treatment 2x/Week Duration of Treatment 8 weeks Plan of Care Start Date 10/15/21 Plan of Care End Date 12/10/21 Therapeutic Interventions Therapeutic Interventions Balance Training,Gait Training ,Home Exercise Program,Joint Mobilizations,Manual Therapy, Neuromuscular Re-education, Self-Care/Home Management,Soft Tissue Mobilization, Therapeutic Activities, Therapeutic Exercises Modalities Cold Pack/Ice Massage,Electric Stimulation,Hot Packs, Ultrasound Next Visit Focus/Plan Next Note Type Treatment Note Next Visit Plan Consider working on 90-degree turns and 180-degree pivot turns. Dynamic gait. Progress balance work as able
--- NOTE | 2021-11-14 10:34 | PT.OTN ---
Current Diagnoses Unspecified mononeuropathy of bilateral lower limbs (11/14/21) Pain in right foot (11/14/21) Pain in left foot (11/14/21) Physical Therapy Treatment Note PT-OP-A Visit Information Start: 10/13/21 12:48 Freq: Status: Active Protocol: Document 11/14/21 09:50 SP (Rec: 11/14/21 10:35 SP [id number]) Out-Patient Physical Therapy Visit Information Visit Information Visit Type Treatment Note Visit Note SPTA Wanda assisted pt in manual and dynamic gait while being directly supervised by INES Hwang. Visit Start Time 09:50 Visit Stop Time 10:34 Total Visit Minutes 44 Visit Number 5 Number of PHYSICAL CHEMIST Visits 1 Evaluation Information Evaluation Date 10/15/21 PT-OP-B Current Condition Start: 10/13/21 12:48 Freq: Status: Active Protocol: Document 10/15/21 09:01 AMB (Rec: 10/15/21 09:33 AMB [id number]) Current Condition History of Current Condition Onset Date 2 years Current Complaints Bilateral foot pain History of Current Condition Neuropathy limits walking and line dancing. Pain increases as she walks. Walks about a mile. Pain escalates with activity. Takes about 30 minutes for pain to decrease back down to baseline, but never really goes away. Does have history of plantar fasciitis bilaterally, but isn 't currently in a flare, last flare was 2 years ago. NO falls in the last 6 months but does tend to touch onto hernandez , not currently using AD but does have trekking poles if she needs. Pain along medial calf bilaterally for a couple years with pressure - getting a massage with pedicure is very painful in that one particular spot. Also has sharp shooting pain when sitting in the recliner, but comes on fast and then it is gone, not consistent, that is the pain in the toes. The pain with walking is in the arch. Treatment Goals Patient/Caregiver Goals Reduce foot pain with walking and shooting pain in toes with sitting in recliner Prior Functional Status Baseline Function- ADL's Independent Baseline Function- Mobility Independent Current Functional Impairments (Reported) Functional Limitations- ADL's Walks shorter distances because of pain Personal Factors Other Personal Factors That May Effect [place], History cervical fusion Therapy/Recovery in . PT-OP-C Subjective Start: 10/13/21 12:48 Freq: Status: Active Protocol: Document 11/14/21 09:50 SP (Rec: 11/14/21 10:35 SP [id number]) OP-PT Subjective Patient Comments Patient Comments Pt reports that she wants to review an exercise, wasn't able to do and PT last tx was wondering if could tolerate/ perform to come back with feedback. Pt reports going out of town during week of Nov 27 so cancelling 11/27 appt. PT-OP-D Balance Start: 10/13/21 12:48 Freq: Status: Active Protocol: Document 10/15/21 09:00 AMB (Rec: 10/19/21 11:28 AMB [id number]) Balance Tests mCTSIB mCTSIB Position 1 30 seconds + mCTSIB Position 2 30 seconds, ankle sway Single Limb Standing Single Limb- Right 3 seconds Single Limb- Left 3 seconds PT-OP-K Range of Motion Start: 10/13/21 12:48 Freq: Status: Active Protocol: Document 10/15/21 09:00 AMB (Rec: 10/19/21 11:28 AMB [id number]) Ankle and Foot Goniometric Range of Motion Ankle and Foot Right Passive Dorsiflexion with Knee Flexed 5 Left Passive Dorsiflexion with Knee Extended 5 PT-OP-M Strength Start: 10/13/21 12:48 Freq: Status: Active Protocol: Document 10/15/21 09:00 AMB (Rec: 10/19/21 11:28 AMB [id number]) Ankle/Foot Strength Ankle and Foot Manual Muscle Testing Right Dorsiflexion (L4) 4+ Good+ Plantarflexion (S1) 4 Good Inversion 4+ Good+ Eversion (S1) 4+ Good+ Left Dorsiflexion (L4) 4+ Good+ Plantarflexion (S1) 4 Good Inversion 4+ Good+ Eversion (S1) 4+ Good+ Toe Strength Toe Manual Muscle Testing Left Great Toe Flexion 4- Good- Extension 4+ Good+ Comments pain with toe flexion Right Great Toe Flexion 4- Good- Extension 4+ Good+ Comments pain with toe flexion PT-OP-Q Treatments Start: 10/13/21 12:48 Freq: Status: Active Protocol: Document 11/14/21 09:50 SP (Rec: 11/14/21 10:35 SP [id number]) Cardio Equipment Recumbent Bicycle Duration (Minutes) 5 Resistance 5>4 due to increase resp rate Seat Position see 3 Other pt improved with reduction resistance today, improved breath, endur 5 min Therapeutic Exercises Sitting Exercises self STMs Sitting Exercise Name manual and instruction long sit, calf rolling Side bilateral Resistance gastroc, soleus, tib ant Equipment Used rolling pin Reps/Minutes 2 min total Comments good feedback w/ gentle rock/ rolling arch lift Sitting Exercise Name arch lift Side bilateral Comments improved arch lift without need of toe flexion foot intrinsics Sitting 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 Joint Mobilizations talocrural Joint talocrural, distal tib/ fib Direction A>P talus, tib fib Grade III Body Position Supine Comments Pt noted tightness at anterior ankle and felt talar/tib/fib glides helped. forefoot Joint B forefoot - interMT Comments Pt is stiff between rays 2-4 - improving with manual, gave instruction on self manual with foot over opp knee Neuro Re-Education Treatment Balance Activities dynamic gait Details dynamic gait, Head turns, 90 deg& 180 deg turns Surface tile Comments - Head turns on PT cue and then on pt's own cue every three steps. Improved stability and little to no change in speed during head turns today. tandem stance Details tandem stance Surface firm - socks only Equipment rail prn Comments - no shoes for HEP - Able to complete head turns small range with cues for slow , core/hip/trunk alignment awareness improved stability. PT-OP-T Assessment and Plan Start: 10/13/21 12:48 Freq: Status: Active Protocol: Document 11/14/21 09:50 SP (Rec: 11/14/21 10:35 SP [id number]) Physical Therapy Assessment Goals Three Impairment Balance Snf Goal (LTG) Karena will show improved balance by increasing her single leg stance time to 5 seconds. LTG Duration 8 weeks Two Impairment Walking Short Term Goal (STG) Karena will walk for 10 minutes without heel pain. STG Duration 4 weeks Snf Goal (LTG) Karena will walk over uneven surfaces without pain/loss of balance. LTG Duration 8 weeks One Impairment Pain Short Term Goal (STG) Karena will sit in her recliner for 30 minutes without shooting pain. STG Duration 4 weeks Cook Helper Fruit Goal (LTG) Karena will be independent and consistent with her HEP. LTG Duration 8 weeks Assessment Summary Assessment Pt better understanding of self manual carryover perform in tx, improved foot intrinsic facilitation picking up marbles. She states less to no tension calf/tib ant with slower and not end range HRTR forceful reps, recheck if modification at home tolerates well (no calf/tib ant spasming). Pt able to complete tandem and perform small range head turns for added progression balance at home ( shoes doffed). Physical Therapy Plan Frequency and Duration Frequency of Treatment 2x/Week Duration of Treatment 8 weeks Plan of Care Start Date 10/15/21 Plan of Care End Date 12/10/21 Therapeutic Interventions Therapeutic Interventions Balance Training,Gait Training ,Home Exercise Program,Joint Mobilizations,Manual Therapy, Neuromuscular Re-education, Self-Care/Home Management,Soft Tissue Mobilization, Therapeutic Activities, Therapeutic Exercises Modalities Cold Pack/Ice Massage,Electric Stimulation,Hot Packs, Ultrasound Next Visit Focus/Plan Next Note Type Treatment Note Next Visit Plan Recheck HRTR tolerance to HEP. Next tx: uneven surface stance. POC: Dynamic gait, including 90, 180 deg turns. Progress balance work as able
--- NOTE | 2021-11-19 09:00 | PT.OTN ---
Current Diagnoses Unspecified mononeuropathy of bilateral lower limbs (11/19/21) Pain in right foot (11/19/21) Pain in left foot (11/19/21) Physical Therapy Treatment Note PT-OP-A Visit Information Start: 10/13/21 12:48 Freq: Status: Active Protocol: Document 11/19/21 08:15 SP (Rec: 11/19/21 09:02 SP [id number]) Out-Patient Physical Therapy Visit Information Visit Information Visit Type Treatment Note Visit Note CRISTOFER Muñoz observed tx instructed by INES Jaffe with pt permission. Visit Start Time 08:15 Visit Stop Time 09:00 Total Visit Minutes 45 Visit Number 6 Number of TOWBOAT ENGINEER Visits 2 Evaluation Information Evaluation Date 10/15/21 PT-OP-B Current Condition Start: 10/13/21 12:48 Freq: Status: Active Protocol: Document 10/15/21 09:01 AMB (Rec: 10/15/21 09:33 AMB [id number]) Current Condition History of Current Condition Onset Date 2 years Current Complaints Bilateral foot pain History of Current Condition Neuropathy limits walking and line dancing. Pain increases as she walks. Walks about a mile. Pain escalates with activity. Takes about 30 minutes for pain to decrease back down to baseline, but never really goes away. Does have history of plantar fasciitis bilaterally, but isn 't currently in a flare, last flare was 2 years ago. NO falls in the last 6 months but does tend to touch onto hernandez , not currently using AD but does have trekking poles if she needs. Pain along medial calf bilaterally for a couple years with pressure - getting a massage with pedicure is very painful in that one particular spot. Also has sharp shooting pain when sitting in the recliner, but comes on fast and then it is gone, not consistent, that is the pain in the toes. The pain with walking is in the arch. Treatment Goals Patient/Caregiver Goals Reduce foot pain with walking and shooting pain in toes with sitting in recliner Prior Functional Status Baseline Function- ADL's Independent Baseline Function- Mobility Independent Current Functional Impairments (Reported) Functional Limitations- ADL's Walks shorter distances because of pain Personal Factors Other Personal Factors That May Effect [place] [employer] [place], History cervical fusion Therapy/Recovery in . PT-OP-C Subjective Start: 10/13/21 12:48 Freq: Status: Active Protocol: Document 11/19/21 08:15 SP (Rec: 11/19/21 09:02 SP [id number]) OP-PT Subjective Patient Comments Patient Comments Pt reports coming down from ladder and caught R lower leg and has small wound. She did line dancing and walks about a mile once or twice a week. Reports no pain with walking but has trouble line dancing due to balance. PT-OP-D Balance Start: 10/13/21 12:48 Freq: Status: Active Protocol: Document 10/15/21 09:00 AMB (Rec: 10/19/21 11:28 AMB [id number]) Balance Tests mCTSIB mCTSIB Position 1 30 seconds + mCTSIB Position 2 30 seconds, ankle sway Single Limb Standing Single Limb- Right 3 seconds Single Limb- Left 3 seconds PT-OP-K Range of Motion Start: 10/13/21 12:48 Freq: Status: Active Protocol: Document 10/15/21 09:00 AMB (Rec: 10/19/21 11:28 AMB [id number]) Ankle and Foot Goniometric Range of Motion Ankle and Foot Right Passive Dorsiflexion with Knee Flexed 5 Left Passive Dorsiflexion with Knee Extended 5 PT-OP-M Strength Start: 10/13/21 12:48 Freq: Status: Active Protocol: Document 10/15/21 09:00 AMB (Rec: 10/19/21 11:28 AMB [id number]) Ankle/Foot Strength Ankle and Foot Manual Muscle Testing Right Dorsiflexion (L4) 4+ Good+ Plantarflexion (S1) 4 Good Inversion 4+ Good+ Eversion (S1) 4+ Good+ Left Dorsiflexion (L4) 4+ Good+ Plantarflexion (S1) 4 Good Inversion 4+ Good+ Eversion (S1) 4+ Good+ Toe Strength Toe Manual Muscle Testing Left Great Toe Flexion 4- Good- Extension 4+ Good+ Comments pain with toe flexion Right Great Toe Flexion 4- Good- Extension 4+ Good+ Comments pain with toe flexion PT-OP-Q Treatments Start: 10/13/21 12:48 Freq: Status: Active Protocol: Document 11/19/21 08:15 SP (Rec: 11/19/21 09:02 SP [id number]) Cardio Equipment Recumbent Bicycle Duration (Minutes) 6 Resistance 4>5 Seat Position see 3 Therapeutic Exercises Supine Exercises LE nerve glide Supine Exercise Name tibial/peroneal nerve glide Side bilateral Resistance AROM Comments cued for foot position, supine and sitting given for HEP Sitting Exercises Sit to stands Sitting Exercise Name 1. arms crossed w/o shoes 2. blue foam w/ arms in front 3. double towel Side bilateral Equipment Used firm > blue foam (gait belt d/ t LOB) Reps/Minutes 2x6 (cued for slow, controlled desent) Comments cued for knee alignment, towel surface for home w/ cues on safety set up. 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/ EV AROM Side bilateral Equipment Used marbles Reps/Minutes 8 reps each LE Comments good feedback response, and performs at home painfree Standing Exercises heel toe raises Standing Exercise Name heel toe raises - seated today and for HEP Side bilateral Resistance AROM Equipment Used rail prn Reps/Minutes 6 Comments decreased reps for home were better Neuro Re-Education Treatment Balance Activities SLS Details Added to HEP Surface Towel Reps/Duration 14 secs B Comments Cues for posture, scapular complex facilatation, core, stance leg glute squeeze dynamic gait Details dynamic gait, Head turns, 90 deg& 180 deg turns, quick walking Surface firm surface Equipment gait belt Comments Head turns on PT cue, cues for foot alignment, head turn PT-OP-T Assessment and Plan Start: 10/13/21 12:48 Freq: Status: Active Protocol: Document 11/19/21 08:15 SP (Rec: 11/19/21 09:02 SP [id number]) Physical Therapy Assessment Goals Three Impairment Balance Director Of Strategic Communications Goal (LTG) Karena will show improved balance by increasing her single leg stance time to 5 seconds. LTG Duration 8 weeks Two Impairment Walking Short Term Goal (STG) Karena will walk for 10 minutes without heel pain. STG Duration 4 weeks Senior Care Goal (LTG) Karena will walk over uneven surfaces without pain/loss of balance. LTG Duration 8 weeks One Impairment Pain Short Term Goal (STG) Karena will sit in her recliner for 30 minutes without shooting pain. STG Duration 4 weeks Director Of Strategic Communications Goal (LTG) Karena will be independent and consistent with her HEP. LTG Duration 8 weeks Assessment Summary Assessment Pt still concerned with numbness in B feet and how PT can improve. Initiated tibial and peroneal nerve glides with no adverse affects low reps. She improved with intrinsic arch lift facilitation HEP review, reports still gets rippling spasms with HRTR but ok response limited 4 reps. Initiated uneven surface STS and SLS without UE support, hands hover back chair for safety, improves stability with cues for posturing, core/ glut fac. With good response feels good tiring effort can do at home to improve balance. Physical Therapy Plan Frequency and Duration Frequency of Treatment 2x/Week Duration of Treatment 8 weeks Plan of Care Start Date 10/15/21 Plan of Care End Date 12/10/21 Therapeutic Interventions Therapeutic Interventions Balance Training,Gait Training ,Home Exercise Program,Joint Mobilizations,Manual Therapy, Neuromuscular Re-education, Self-Care/Home Management,Soft Tissue Mobilization, Therapeutic Activities, Therapeutic Exercises Modalities Cold Pack/Ice Massage,Electric Stimulation,Hot Packs, Ultrasound Next Visit Focus/Plan Next Note Type Treatment Note Next Visit Plan Recheck HRTR tolerance to HEP if not DC. Next tx: recheck added STS/SLS uneven surface stance. POC: Dynamic gait, including 90, 180 deg turns. Progress balance work as able
--- NOTE | 2021-12-01 15:49 | PT.OTN ---
Current Diagnoses Unspecified mononeuropathy of bilateral lower limbs (12/01/21) Pain in right foot (12/01/21) Pain in left foot (12/01/21) Physical Therapy Treatment Note PT-OP-A Visit Information Start: 10/13/21 12:48 Freq: Status: Active Protocol: Document 12/01/21 13:48 AMB (Rec: 12/01/21 14:33 AMB [id number]) Out-Patient Physical Therapy Visit Information Visit Information Visit Type Treatment Note Visit Start Time 13:45 Visit Stop Time 14:30 Total Visit Minutes 45 Visit Number 7 Number of DATABASE REPORT WRITER Visits 0 PT-OP-B Current Condition Start: 10/13/21 12:48 Freq: Status: Active Protocol: Document 10/15/21 09:01 AMB (Rec: 10/15/21 09:33 AMB [id number]) Current Condition History of Current Condition Onset Date 2 years Current Complaints Bilateral foot pain History of Current Condition Neuropathy limits walking and line dancing. Pain increases as she walks. Walks about a mile. Pain escalates with activity. Takes about 30 minutes for pain to decrease back down to baseline, but never really goes away. Does have history of plantar fasciitis bilaterally, but isn 't currently in a flare, last flare was 2 years ago. NO falls in the last 6 months but does tend to touch onto hernandez , not currently using AD but does have trekking poles if she needs. Pain along medial calf bilaterally for a couple years with pressure - getting a massage with pedicure is very painful in that one particular spot. Also has sharp shooting pain when sitting in the recliner, but comes on fast and then it is gone, not consistent, that is the pain in the toes. The pain with walking is in the arch. Treatment Goals Patient/Caregiver Goals Reduce foot pain with walking and shooting pain in toes with sitting in recliner Prior Functional Status Baseline Function- ADL's Independent Baseline Function- Mobility Independent Current Functional Impairments (Reported) Functional Limitations- ADL's Walks shorter distances because of pain Personal Factors Other Personal Factors That May Effect [place], History cervical fusion Therapy/Recovery in . PT-OP-C Subjective Start: 10/13/21 12:48 Freq: Status: Active Protocol: Document 12/01/21 14:30 AMB (Rec: 12/01/21 15:46 AMB [id number]) OP-PT Subjective Patient Comments Patient Comments Karena is realizing that she hasn't had the shooting pain while sitting in the recliner in the last few weeks. She does have arch pain in her foot with extended walkign and line dancing, so she stops a bit early to avoid that pain. PT-OP-D Balance Start: 10/13/21 12:48 Freq: Status: Active Protocol: Document 10/15/21 09:00 AMB (Rec: 10/19/21 11:28 AMB [id number]) Balance Tests mCTSIB mCTSIB Position 1 30 seconds + mCTSIB Position 2 30 seconds, ankle sway Single Limb Standing Single Limb- Right 3 seconds Single Limb- Left 3 seconds PT-OP-K Range of Motion Start: 10/13/21 12:48 Freq: Status: Active Protocol: Document 10/15/21 09:00 AMB (Rec: 10/19/21 11:28 AMB [id number]) Ankle and Foot Goniometric Range of Motion Ankle and Foot Right Passive Dorsiflexion with Knee Flexed 5 Left Passive Dorsiflexion with Knee Extended 5 PT-OP-M Strength Start: 10/13/21 12:48 Freq: Status: Active Protocol: Document 10/15/21 09:00 AMB (Rec: 10/19/21 11:28 AMB [id number]) Ankle/Foot Strength Ankle and Foot Manual Muscle Testing Right Dorsiflexion (L4) 4+ Good+ Plantarflexion (S1) 4 Good Inversion 4+ Good+ Eversion (S1) 4+ Good+ Left Dorsiflexion (L4) 4+ Good+ Plantarflexion (S1) 4 Good Inversion 4+ Good+ Eversion (S1) 4+ Good+ Toe Strength Toe Manual Muscle Testing Left Great Toe Flexion 4- Good- Extension 4+ Good+ Comments pain with toe flexion Right Great Toe Flexion 4- Good- Extension 4+ Good+ Comments pain with toe flexion PT-OP-Q Treatments Start: 10/13/21 12:48 Freq: Status: Active Protocol: Document 12/01/21 14:30 AMB (Rec: 12/01/21 15:46 AMB [id number]) Therapeutic Exercises Supine Exercises LE nerve glide Supine Exercise Name tibial/peroneal nerve glide Side bilateral Resistance AROM Comments cued for foot position, supine and sitting given for HEP Sitting Exercises self STMs Sitting Exercise Name manual and instruction short sitting Side bilateral Resistance plantar fasciaa Equipment Used tennis ball Reps/Minutes 2 min total Comments good feedback w/ gentle rock/ rolling Manual Therapy Treatment Soft Tissue Mobilization plantar fascia Comments and into MTP joint Joint Mobilizations forefoot Joint B forefoot - interMT Comments Pt is stiff between rays 2-4 - improving with manual, gave instruction on self manual with foot over opp knee Neuro Re-Education Treatment Balance Activities SLS Details Added to HEP Surface Towel Reps/Duration 14 secs B Comments Cues for posture, scapular complex facilatation, core, stance leg glute squeeze tandem stance Details tandem stance Surface firm - socks only Equipment rail prn Comments - no shoes for HEP - Able to complete head turns small range with cues for slow , core/hip/trunk alignment awareness improved stability. PT-OP-T Assessment and Plan Start: 10/13/21 12:48 Freq: Status: Active Protocol: Document 12/01/21 13:48 AMB (Rec: 12/01/21 14:33 AMB [id number]) Physical Therapy Assessment Goals Three Impairment Balance Address Change Clerk Goal (LTG) Karena will show improved balance by increasing her single leg stance time to 5 seconds. LTG Duration 8 weeks Two Impairment Walking Short Term Goal (STG) Karena will walk for 10 minutes without heel pain. STG Duration MET Long-Term Goal (LTG) Karena will walk over uneven surfaces without pain/loss of balance. LTG Duration 8 weeks One Impairment Pain Short Term Goal (STG) Karena will sit in her recliner for 30 minutes without shooting pain. STG Duration MET Address Change Clerk Goal (LTG) Karena will be independent and consistent with her HEP. LTG Duration 8 weeks Assessment Summary Assessment Karena is noticing continued pain between metatarsals, but pain with seated does seem to be improving. Limited range tolerated with heel toe due to calf cramps. Would continue to benefit from PT due to metatarsal pain with walking. Physical Therapy Plan Next Visit Focus/Plan Next Note Type Treatment Note Next Visit Plan recheck added STS/SLS uneven surface stance. POC: Dynamic gait, including 90, 180 deg turns. Progress balance work as able
--- NOTE | 2021-12-08 10:43 | PT.OTN ---
Current Diagnoses Unspecified mononeuropathy of bilateral lower limbs (12/08/21) Pain in right foot (12/08/21) Pain in left foot (12/08/21) Physical Therapy Treatment Note PT-OP-A Visit Information Start: 10/13/21 12:48 Freq: Status: Active Protocol: Document 12/08/21 09:56 AMB (Rec: 12/08/21 10:43 AMB [id number]) Out-Patient Physical Therapy Visit Information Visit Information Visit Type Treatment Note Visit Start Time 09:45 Visit Stop Time 10:30 Total Visit Minutes 45 Visit Number 8 PT-OP-B Current Condition Start: 10/13/21 12:48 Freq: Status: Active Protocol: Document 10/15/21 09:01 AMB (Rec: 10/15/21 09:33 AMB [id number]) Current Condition History of Current Condition Onset Date 2 years Current Complaints Bilateral foot pain History of Current Condition Neuropathy limits walking and line dancing. Pain increases as she walks. Walks about a mile. Pain escalates with activity. Takes about 30 minutes for pain to decrease back down to baseline, but never really goes away. Does have history of plantar fasciitis bilaterally, but isn 't currently in a flare, last flare was 2 years ago. NO falls in the last 6 months but does tend to touch onto hernandez , not currently using AD but does have trekking poles if she needs. Pain along medial calf bilaterally for a couple years with pressure - getting a massage with pedicure is very painful in that one particular spot. Also has sharp shooting pain when sitting in the recliner, but comes on fast and then it is gone, not consistent, that is the pain in the toes. The pain with walking is in the arch. Treatment Goals Patient/Caregiver Goals Reduce foot pain with walking and shooting pain in toes with sitting in recliner Prior Functional Status Baseline Function- ADL's Independent Baseline Function- Mobility Independent Current Functional Impairments (Reported) Functional Limitations- ADL's Walks shorter distances because of pain Personal Factors Other Personal Factors That May Effect [id number], History cervical fusion Therapy/Recovery in . PT-OP-C Subjective Start: 10/13/21 12:48 Freq: Status: Active Protocol: Document 12/08/21 09:56 AMB (Rec: 12/08/21 10:43 AMB [id number]) OP-PT Subjective Patient Comments Patient Comments Karena reports she is not limited by pain with walking or dancing, brings in her HEP to go over. PT-OP-D Balance Start: 10/13/21 12:48 Freq: Status: Active Protocol: Document 10/15/21 09:00 AMB (Rec: 10/19/21 11:28 AMB [id number]) Balance Tests mCTSIB mCTSIB Position 1 30 seconds + mCTSIB Position 2 30 seconds, ankle sway Single Limb Standing Single Limb- Right 3 seconds Single Limb- Left 3 seconds PT-OP-K Range of Motion Start: 10/13/21 12:48 Freq: Status: Active Protocol: Document 10/15/21 09:00 AMB (Rec: 10/19/21 11:28 AMB [id number]) Ankle and Foot Goniometric Range of Motion Ankle and Foot Right Passive Dorsiflexion with Knee Flexed 5 Left Passive Dorsiflexion with Knee Extended 5 PT-OP-M Strength Start: 10/13/21 12:48 Freq: Status: Active Protocol: Document 10/15/21 09:00 AMB (Rec: 10/19/21 11:28 AMB [id number]) Ankle/Foot Strength Ankle and Foot Manual Muscle Testing Right Dorsiflexion (L4) 4+ Good+ Plantarflexion (S1) 4 Good Inversion 4+ Good+ Eversion (S1) 4+ Good+ Left Dorsiflexion (L4) 4+ Good+ Plantarflexion (S1) 4 Good Inversion 4+ Good+ Eversion (S1) 4+ Good+ Toe Strength Toe Manual Muscle Testing Left Great Toe Flexion 4- Good- Extension 4+ Good+ Comments pain with toe flexion Right Great Toe Flexion 4- Good- Extension 4+ Good+ Comments pain with toe flexion PT-OP-Q Treatments Start: 10/13/21 12:48 Freq: Status: Active Protocol: Document 12/08/21 09:56 AMB (Rec: 12/08/21 10:43 AMB [id number]) Therapeutic Exercises Other Exercises review HEP- adjust Other Exercise Name gastroc stretch, singe leg balance, instrinsic strengthening, purpose of ea Comments decreased repetitions of balance and calf stretching Gait Training Gait Activity 1 Description uneven surfaces Comments independent Manual Therapy Treatment Soft Tissue Mobilization plantar fascia Comments and into MTP joint PT-OP-T Assessment and Plan Start: 10/13/21 12:48 Freq: Status: Active Protocol: Document 12/08/21 09:56 AMB (Rec: 12/08/21 10:43 AMB [id number]) Physical Therapy Assessment Goals Three Impairment Balance Factory Manager Goal (LTG) Karena will show improved balance by increasing her single leg stance time to 5 seconds. LTG Duration MET Two Impairment Walking Short Term Goal (STG) Karena will walk for 10 minutes without heel pain. STG Duration MET Care Home Goal (LTG) Karena will walk over uneven surfaces without pain/loss of balance. LTG Duration MET One Impairment Pain Short Term Goal (STG) Karena will sit in her recliner for 30 minutes without shooting pain. STG Duration MET Factory Manager Goal (LTG) Karena will be independent and consistent with her HEP. LTG Duration MET Assessment Summary Assessment Karena has met all of her goals. 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 Physical Therapy Plan Discharge Physical Therapy Discharge Reasons Goals Met
== END 2021-12-11 09:13 ==
LOC: PHYS 09:45
PROVIDERS: Family Provider Family Medicine; PCP Family Medicine; Referring Provider Podiatrist Foot & Ankle Surgery; Visit Provider Podiatrist Foot & Ankle Surgery
DX: G57.93 Unspecified mononeuropathy of bilateral lower limbs (principal); M79.671 Pain in right foot; M79.672 Pain in left foot
CPT/HCPCS: 97110; 97112; 97116; 97140; 97161

== ENCOUNTER → 2022-02-05 12:31 | Outpatient (CLI) | payer OTHER, SELFPAY ==
--- NOTE | 2022-02-05 12:32 | DI.MG.S_ITS ---
BILATERAL DIGITAL SCREENING MAMMOGRAM 3D/2D WITH CAD: 02/05/2022 CLINICAL: Routine screening. Family history of breast cancer. Comparison is made to exams dated: 01/20/2021 mammogram - [facility], 11/27/2019 mammogram, and 08/09/2018 mammogram - [facility]. Both breasts are almost entirely fatty (category a/<25% glandular tissue). Current study was also evaluated with a Computer Aided Detection (CAD) system. There are benign calcifications in both breasts. No significant masses, calcifications, or other findings are seen in either breast. There has been no significant interval change. IMPRESSION: BENIGN There is no mammographic evidence of malignancy. A 1 year screening mammogram is recommended. Based on the Tyrer Cuzick model (a risk assessment model) the patient's lifetime risk is 0.6% and her 10 year risk is 0.0%. According to the ACR, ACS, and NCCN guidelines, an annual breast MRI exam along with mammogram is recommended if the patient's lifetime risk is 20% or greater. This exam was interpreted at Station ID: [id number]. NOTE: For mammograms, a report in lay terms will be sent to the patient. Approximately 15% of breast malignancies will not be visualized mammographically. In the management of a palpable breast mass, a negative mammogram must not discourage biopsy of a clinically suspicious lesion. Electronically Signed By: Archie Ortega M.D., jr/avtar:02/05/2022 14:14:04 letter sent: Normal Exam ACR BI-RADS Category 2: Benign Finding(s) 3342F
== END ==
PROVIDERS: Family Provider Family Medicine; PCP Family Medicine; Referring Provider Family Medicine; Visit Provider Family Medicine
DX: Z12.31 Encounter for screening mammogram for malignant neoplasm of breast (principal); Z80.3 Family history of malignant neoplasm of breast
CPT/HCPCS: 77063; 77067

== ENCOUNTER 2022-03-12 06:34 | Inpatient (IN) | payer OTHER, SELFPAY ==
[2022-03-12] VITALS (20 sets, daily range): BP systolic 130–191; BP diastolic 63–95; PULSE 77–110; RESP 12–40; TEMP 36.1–37.6; O2SAT 93–97; BMI 24.2
[2022-03-12] MEDS: SODIUM CHLORIDE 0.9% 1,000 ML 150 ML IV ×2 (06:46→13:42)
[2022-03-12] MEDS: HYDROMORPHONE 0.5 MG INJ IV ×5 (06:46→22:15)
[2022-03-12] MEDS: ONDANSETRON 4 MG/2 ML INJ IV (06:47)
--- NOTE | 2022-03-12 06:48 | DI.RAD.S_ITS ---
PROCEDURE: XR ABDOMEN MIN 2V INDICATIONS: abdominal pain, N/V TECHNIQUE: 2 views of the abdomen were acquired. COMPARISON: [facility], CT, CT ABDOMEN PELVIS W CON, 05/01/2021, 12:38. FINDINGS: Surgical changes and devices: None. Bowel: No pneumoperitoneum. The stomach is grossly distended with gas. Dilated loops of proximal small bowel seen that measure up to 3.5 cm. Soft tissues: No masses; visualized solid organ contours appear normal in size. No suspicious abdominal calcifications. Bones: No suspicious bony abnormalities. Age-appropriate bony degenerative changes are seen. IMPRESSION: Daily loops of small bowel and the grossly dilated stomach can be seen. These imaging findings are worrisome for small bowel obstruction. Postoperative and degenerative changes are seen. Note: No significant discrepancy from the preliminary report. Dictated by: Reuben Burgess M.D. on 03/12/2022 at 6:38 Approved by: Reuben Burgess M.D. on 03/12/2022 at 6:39
--- NOTE | 2022-03-12 06:49 | ED_ITS ---
HPI - Abdominal Pain <Dwayne Osullivan DO - Last Filed: 03/13/22 04:34> General Chief Complaint: Abdominal Pain Stated Complaint: N/V/Abd pain Time Seen by Provider: 03/12/22 06:43 Source: patient and EMS Mode of arrival: EMS History of Present Illness HPI narrative: 81-year-old female nonsmoker with history of prior complaints of epigastric pain and history of a laparoscopic cholecystectomy and sigmoid colectomy presents by EMS and a chief complaint of severe abdominal pain over the past 12 hours or so with multiple episodes of dry heaving. She did have a bowel movement few hours ago but she states it was minimal. She denies any fever or chills. She denies runny nose, sore throat or cough. She does not take any blood thinners. She is been NPO since about 6:00 p.m.. Any motion causes exquisite pain and rest helps somewhat but not significantly. Related Data Home Medications Medication Instructions Recorded Confirmed acyclovir 400 mg tablet 400 mg PO DAILY 04/22/21 03/12/22 cyanocobalamin (vitamin B-12) 1 tab PO DAILY 04/22/21 03/12/22 diltiazem HCl 120 mg 120 mg PO DAILY 04/22/21 03/12/22 capsule,extended release 24 hr hydrocodone 5 mg-acetaminophen 325 1 tab PO DAILY 04/22/21 03/12/22 mg tablet hydroxyzine HCl 50 mg tablet 50 mg PO DAILY 04/22/21 03/12/22 losartan 100 1 tab PO DAILY 04/22/21 03/12/22 mg-hydrochlorothiazide 12.5 mg tablet magnesium 1 tab PO DAILY 04/22/21 03/12/22 multivitamin 1 tab PO DAILY 04/22/21 03/12/22 omeprazole 20 mg capsule,delayed 20 mg PO BID 04/22/21 03/12/22 release potassium chloride 10 mEq 10 meq PO DAILY 04/22/21 03/12/22 tablet,extended release rosuvastatin 5 mg tablet 2.5 mg PO DAILY 04/22/21 03/12/22 vitamin A-vitamin C-vit E-min 1 tab PO DAILY 04/22/21 03/12/22 tablet Allergies Allergy/AdvReac Type Severity Reaction Status Date / Time No Known Drug Allergies Allergy Verified 03/12/22 11:34 Review of Systems <Dwayne Osullivan DO - Last Filed: 03/13/22 04:34> Review of Systems Narrative: GENERAL: Denies chills, fatigue, malaise, fever, sweats. HEENT: Denies sinus pain, ear pain, sore throat, difficulty swallowing, dizziness. RESPIRATORY: Denies dyspnea, cough, wheezing, hemoptysis, sputum. CARDIOVASCULAR: Denies chest pain, palpitations, orthopnea, edema, GASTROINTESTINAL: See HPI : Denies dysuria, frequency, incontinence, hematuria, urinary retention. MUSCULOSKELETAL: denies weakness, joint pain, or bony pain SKIN: Denies rash, skin lesions, or other NEUROLOGIC: Denies weakness, headache, numbness, change in speech, confusion, seizures, incoordination. PSYCHIATRIC: No concerning psychosocial issues. 12 point review of systems is negative except for those stated above Patient History <Dwayne Osullivan DO - Last Filed: 03/13/22 04:34> Surgical History H/O neck surgery H/O rotator cuff surgery History of colon resection History of hysterectomy Hx of cholecystectomy Status post hysterectomy Family History Mother Hypertension Diabetes mellitus Breast cancer Heart disease Father Heart disease Sister Breast cancer Social History (Updated 04/22/21 @ 09:24 by Yaa Yates RN) marital status: household members: spouse Previous occupational history: retired Smoking Status: Never smoker alcohol intake: current substance use type: does not use Smoking Status: Never smoker alcohol intake frequency: holidays/special occasions only Substance Use Type: does not use Exam <DO Ailyn Hanna Last Filed: 03/13/22 04:34> Narrative Exam Narrative: GENERAL: [81] year old patient appears stated age. Well-developed patient, in obvious significant distress, moaning, rubbing her abdomen HEAD: Atraumatic. Normocephalic. EYES: Pupils equal round and reactive. Extraocular motions intact. No scleral icterus. No injection or drainage. ENT: Nose without bleeding, purulent drainage. Throat without erythema, tonsillar hypertrophy or exudate. Airway patent. NECK: Trachea midline. Non tender CARDIOVASCULAR: Regular rate and rhythm without murmurs, gallops, or rubs. RESPIRATORY: Clear to auscultation. Breath sounds equal bilaterally. No wheezes, rales, or rhonchi. GASTROINTESTINAL: Abdomen soft, firm and distended, guarding, rebound, peritoneal signs. Minimal bowel sounds noted. EXTREMITIES: No edema or joint tenderness. BACK: Nontender without deformity or crepitance. No flank tenderness. NEURO: AOx3. SKIN: No rash or erythema of visible areas Initial Vital Signs Initial Vital Signs: Vital Signs Temperature 97 F L 03/12/22 06:38 Pulse Rate 84 03/12/22 06:38 Respiratory Rate 22 03/12/22 06:38 Blood Pressure 130/95 H 03/12/22 06:38 Pulse Oximetry 97 03/12/22 06:38 Oxygen Delivery Method 03/12/22 06:38 <Dorian Acharya DO - Last Filed: 03/12/22 10:07> Initial Vital Signs Initial Vital Signs: Vital Signs Temperature 97 F L 03/12/22 06:38 Pulse Rate 84 03/12/22 06:38 Respiratory Rate 22 03/12/22 06:38 Blood Pressure 130/95 H 03/12/22 06:38 Pulse Oximetry 97 03/12/22 06:38 Oxygen Delivery Method 03/12/22 06:38 Course <Dwayne Osullivan DO - Last Filed: 03/13/22 04:34> Orders Ordered: Enoxaparin Sodium (Enoxaparin 40 Mg/0.4 Ml Syringe) 40 mg SUBCUT DAILY LOBO Hydromorphone HCl (Hydromorphone 0.5 Mg Inj) 0.5 mg IV Q2H PRN PRN Reason: Pain, Moderate (4-6) Last Admin: 03/13/22 04:07 Dose: 0.5 mg Documented By: Admin: 03/13/22 01:00 Dose: 0.5 mg Documented By: Admin: 03/12/22 22:15 Dose: 0.5 mg Documented By: Admin: 03/12/22 20:02 Dose: 0.5 mg Documented By: MALINI Sodium Chloride (Normal Saline 0.9%) 1,000 mls @ 150 mls/hr IV CONT LOBO Last Admin: 03/12/22 13:42 Dose: 150 mls/hr Documented By: Infusion: 03/12/22 11:39 Dose: 0 mls/hr Documented By: Admin: 03/12/22 06:46 Dose: 150 mls/hr Documented By: KAILYN Naloxone HCl (Naloxone 0.4 Mg/Ml Vial) 0.2 mg IV Q2MIN PRN PRN Reason: Opiate Reversal Ondansetron HCl (Ondansetron 4 Mg/2 Ml Inj) 4 mg IV Q8HR PRN PRN Reason: Nausea And Vomiting Pantoprazole Sodium (Pantoprazole 40 Mg Vial) 20 mg IV DAILY LOBO Discontinued Medications Diltiazem HCl (Diltiazem Sr 60 Mg) 120 mg PO NOW ONE Stop: 03/13/22 03:48 Last Admin: 03/13/22 04:31 Dose: Not Given Documented By: Hydrochlorothiazide (Hydrochlorothiazide 25 Mg Tablet) 12.5 mg PO NOW ONE Stop: 03/13/22 03:48 Last Admin: 03/13/22 04:07 Dose: 12.5 mg Documented By: Hydromorphone HCl (Hydromorphone 0.5 Mg Inj) 0.5 mg IV NOW ONE Stop: 03/12/22 06:44 Last Admin: 03/12/22 06:46 Dose: 0.5 mg Documented By: KAILYN Hydromorphone HCl (Hydromorphone 0.5 Mg Inj) 0.5 mg IV NOW ONE Stop: 03/12/22 07:45 Last Admin: 03/12/22 08:00 Dose: 0.5 mg Documented By: MARI Hydromorphone HCl (Hydromorphone 0.5 Mg Inj) 0.5 mg IV Q4H PRN PRN Reason: Pain, Moderate (4-6) Last Admin: 03/12/22 14:40 Dose: 0.5 mg Documented By: MEGAN POTASSIUM CHLORIDE IN WATER (Potassium Cl 10 Meq/100 Ml Batsheva) 10 meq in 100 mls @ 100 mls/hr IV Q1H LOBO Stop: 03/12/22 19:14 Last Admin: 03/12/22 18:16 Dose: Not Given Documented By: Admin: 03/12/22 18:16 Dose: Not Given Documented By: Admin: 03/12/22 17:42 Dose: 100 mls/hr Documented By: Infusion: 03/12/22 17:42 Dose: 100 mls/hr Documented By: Admin: 03/12/22 16:53 Dose: 100 mls/hr Documented By: Infusion: 03/12/22 16:52 Dose: 100 mls/hr Documented By: Admin: 03/12/22 15:52 Dose: 100 mls/hr Documented By: Infusion: 03/12/22 15:38 Dose: 100 mls/hr Documented By: Admin: 03/12/22 14:38 Dose: 100 mls/hr Documented By: Infusion: 03/12/22 14:30 Dose: 100 mls/hr Documented By: Admin: 03/12/22 13:30 Dose: 100 mls/hr Documented By: MEGAN Losartan Potassium (Losartan 50 Mg Tablet) 100 mg PO NOW ONE Stop: 03/13/22 03:48 Last Admin: 03/13/22 04:08 Dose: 100 mg Documented By: Ondansetron HCl (Ondansetron 4 Mg/2 Ml Inj) 4 mg IV NOW ONE Stop: 03/12/22 06:44 Last Admin: 03/12/22 06:47 Dose: 4 mg Documented By: KAILYN Vital Signs Vital signs: Vital Signs - 8 hr 03/12/22 06:38 Temperature 97 F L Pulse Rate 84 Respiratory Rate 22 Blood Pressure 130/95 H Pulse Oximetry 97 Oxygen Delivery Method Room Air <Dorian Acharya DO - Last Filed: 03/12/22 10:07> Orders Ordered: Enoxaparin Sodium (Enoxaparin 40 Mg/0.4 Ml Syringe) 40 mg SUBCUT DAILY LOBO Hydromorphone HCl (Hydromorphone 0.5 Mg Inj) 0.5 mg IV Q2H PRN PRN Reason: Pain, Moderate (4-6) Last Admin: 03/13/22 04:07 Dose: 0.5 mg Documented By: Admin: 03/13/22 01:00 Dose: 0.5 mg Documented By: Admin: 03/12/22 22:15 Dose: 0.5 mg Documented By: Admin: 03/12/22 20:02 Dose: 0.5 mg Documented By: MALINI Sodium Chloride (Normal Saline 0.9%) 1,000 mls @ 150 mls/hr IV CONT LOBO Last Admin: 03/12/22 13:42 Dose: 150 mls/hr Documented By: Infusion: 03/12/22 11:39 Dose: 0 mls/hr Documented By: Admin: 03/12/22 06:46 Dose: 150 mls/hr Documented By: KAILYN Naloxone HCl (Naloxone 0.4 Mg/Ml Vial) 0.2 mg IV Q2MIN PRN PRN Reason: Opiate Reversal Ondansetron HCl (Ondansetron 4 Mg/2 Ml Inj) 4 mg IV Q8HR PRN PRN Reason: Nausea And Vomiting Pantoprazole Sodium (Pantoprazole 40 Mg Vial) 20 mg IV DAILY LOBO Discontinued Medications Diltiazem HCl (Diltiazem Sr 60 Mg) 120 mg PO NOW ONE Stop: 03/13/22 03:48 Last Admin: 03/13/22 04:31 Dose: Not Given Documented By: Hydrochlorothiazide (Hydrochlorothiazide 25 Mg Tablet) 12.5 mg PO NOW ONE Stop: 03/13/22 03:48 Last Admin: 03/13/22 04:07 Dose: 12.5 mg Documented By: Hydromorphone HCl (Hydromorphone 0.5 Mg Inj) 0.5 mg IV NOW ONE Stop: 03/12/22 06:44 Last Admin: 03/12/22 06:46 Dose: 0.5 mg Documented By: KAILYN Hydromorphone HCl (Hydromorphone 0.5 Mg Inj) 0.5 mg IV NOW ONE Stop: 03/12/22 07:45 Last Admin: 03/12/22 08:00 Dose: 0.5 mg Documented By: MARI Hydromorphone HCl (Hydromorphone 0.5 Mg Inj) 0.5 mg IV Q4H PRN PRN Reason: Pain, Moderate (4-6) Last Admin: 03/12/22 14:40 Dose: 0.5 mg Documented By: MEGAN POTASSIUM CHLORIDE IN WATER (Potassium Cl 10 Meq/100 Ml Batsheva) 10 meq in 100 mls @ 100 mls/hr IV Q1H LOBO Stop: 03/12/22 19:14 Last Admin: 03/12/22 18:16 Dose: Not Given Documented By: Admin: 03/12/22 18:16 Dose: Not Given Documented By: Admin: 03/12/22 17:42 Dose: 100 mls/hr Documented By: Infusion: 03/12/22 17:42 Dose: 100 mls/hr Documented By: MARIA ANTONIAK Admin: 03/12/22 16:53 Dose: 100 mls/hr Documented By: Infusion: 03/12/22 16:52 Dose: 100 mls/hr Documented By: Admin: 03/12/22 15:52 Dose: 100 mls/hr Documented By: Infusion: 03/12/22 15:38 Dose: 100 mls/hr Documented By: MARIA ANTONIAK Admin: 03/12/22 14:38 Dose: 100 mls/hr Documented By: Infusion: 03/12/22 14:30 Dose: 100 mls/hr Documented By: Admin: 03/12/22 13:30 Dose: 100 mls/hr Documented By: MEGAN Losartan Potassium (Losartan 50 Mg Tablet) 100 mg PO NOW ONE Stop: 03/13/22 03:48 Last Admin: 03/13/22 04:08 Dose: 100 mg Documented By: Ondansetron HCl (Ondansetron 4 Mg/2 Ml Inj) 4 mg IV NOW ONE Stop: 03/12/22 06:44 Last Admin: 03/12/22 06:47 Dose: 4 mg Documented By: KAILYN Vital Signs Vital signs: Vital Signs - 8 hr 03/12/22 06:38 Temperature 97 F L Pulse Rate 84 Respiratory Rate 22 Blood Pressure 130/95 H Pulse Oximetry 97 Oxygen Delivery Method Room Air MDM - Abdominal Pain <Dwayne Osullivan DO - Last Filed: 03/13/22 04:34> Lab Data Result diagrams: 03/12/22 06:42 03/12/22 17:12 Labs: Lab Results 03/12/22 03/12/22 03/12/22 Range/Units 06:42 06:42 06:42 WBC 17.8 H (4.5-11.0) X10^3/uL RBC 4.66 (4.0-5.2) X10^6/uL Hgb 13.5 (12.0-16.0) g/dL Hct 40.4 (36-46) % MCV 86.6 (80-100) fL MCH 29.1 (26-34) PG MCHC 33.6 (30-36) % RDW 14.4 (11.6-14.8) % Plt Count 340 (150-400) X10^3/uL Neut % (Auto) 76.4 H (50-75) % Lymph % (Auto) 17.0 L (25-40) % [place] % (Auto) 6.0 (3-14) % Eos % (Auto) 0.2 L (2-4) % Baso % (Auto) 0.4 (0-2) % Neut # (Auto) 38563 H (6876-9545) /uL Lymph # (Auto) 3000 (1280-3581) /uL [place] # (Auto) 1100 H (0-900) /uL Eos # (Auto) 0 (0-450) /uL Baso # (Auto) 100 (0-100) /uL Sodium 138 (137-145) mmol/L Potassium 3.1 L (3.4-5.1) mmol/L Chloride 97 L (98-107) mmol/L Carbon Dioxide 27 (22-32) mmol/L BUN 21 H (7-17) mg/dL Creatinine 0.97 (0.52-1.04) mg/dL Estimated GFR 58 L (>60) mL/min BUN/Creatinine Ratio 21.6 (6-22) Glucose 293 H (80-110) mg/dL Lactate 3.0 H (0.7-2.1) mmol/L Calcium 9.8 (8.4-10.2) mg/dL Total Bilirubin 0.8 (0.2-1.3) mg/dL AST 44 H (14-36) IU/L ALT 31 (<35) IU/L Alkaline Phosphatase 150 H (38-126) U/L Total Protein 8.7 H (6.3-8.2) g/dL Albumin 4.6 (3.5-5.0) g/dL Globulin 4.1 (1.7-4.1) g/dL Albumin/Globulin Ratio 1.1 (1.0-2.8) Lipase 9956 H (23-300) U/L SARS-CoV-2 (PCR) (Negative) Influenza A (RT-PCR) (NEGATIVE) Influenza B (RT-PCR) (NEGATIVE) RSV (PCR) (Negative) 03/12/22 Range/Units 06:42 WBC (4.5-11.0) X10^3/uL RBC (4.0-5.2) X10^6/uL Hgb (12.0-16.0) g/dL Hct (36-46) % MCV (80-100) fL MCH (26-34) PG MCHC (30-36) % RDW (11.6-14.8) % Plt Count (150-400) X10^3/uL Neut % (Auto) (50-75) % Lymph % (Auto) (25-40) % [place] % (Auto) (3-14) % Eos % (Auto) (2-4) % Baso % (Auto) (0-2) % Neut # (Auto) (7515-8801) /uL Lymph # (Auto) (3700-5892) /uL [place] # (Auto) (0-900) /uL Eos # (Auto) (0-450) /uL Baso # (Auto) (0-100) /uL Sodium (137-145) mmol/L Potassium (3.4-5.1) mmol/L Chloride (98-107) mmol/L Carbon Dioxide (22-32) mmol/L BUN (7-17) mg/dL Creatinine (0.52-1.04) mg/dL Estimated GFR (>60) mL/min BUN/Creatinine Ratio (6-22) Glucose (80-110) mg/dL Lactate (0.7-2.1) mmol/L Calcium (8.4-10.2) mg/dL Total Bilirubin (0.2-1.3) mg/dL AST (14-36) IU/L ALT (<35) IU/L Alkaline Phosphatase (38-126) U/L Total Protein (6.3-8.2) g/dL Albumin (3.5-5.0) g/dL Globulin (1.7-4.1) g/dL Albumin/Globulin Ratio (1.0-2.8) Lipase (23-300) U/L SARS-CoV-2 (PCR) Negative (Negative) Influenza A (RT-PCR) Flu a negative (NEGATIVE) Influenza B (RT-PCR) Flu b negative (NEGATIVE) RSV (PCR) Negative (Negative) Point of care testing: Urine Dip Bedside Urine Glucose 1000 mg/dl Bedside Urine Bilirubin - Negative Bedside Urine Ketone - Negative Urine Specific [place] 1.015 Bedside Urine Occult Blood - Negative Bedside Urine pH 5.5 Bedside Urine Protein - Negative Bedside Urine Urobilinogen - Negative Bedside Urine Nitrite - Negative Bedside Urine Leukocytes - Negative Esterase <Dorian Acharya DO - Last Filed: 03/12/22 10:07> Lab Data Attestation: I reviewed the patient's lab results. Labs: Lab Results 03/12/22 03/12/22 03/12/22 Range/Units 06:42 06:42 06:42 WBC 17.8 H (4.5-11.0) X10^3/uL RBC 4.66 (4.0-5.2) X10^6/uL Hgb 13.5 (12.0-16.0) g/dL Hct 40.4 (36-46) % MCV 86.6 (80-100) fL MCH 29.1 (26-34) PG MCHC 33.6 (30-36) % RDW 14.4 (11.6-14.8) % Plt Count 340 (150-400) X10^3/uL Neut % (Auto) 76.4 H (50-75) % Lymph % (Auto) 17.0 L (25-40) % [place] % (Auto) 6.0 (3-14) % Eos % (Auto) 0.2 L (2-4) % Baso % (Auto) 0.4 (0-2) % Neut # (Auto) 23701 H (2451-2143) /uL Lymph # (Auto) 3000 (9507-2153) /uL [place] # (Auto) 1100 H (0-900) /uL Eos # (Auto) 0 (0-450) /uL Baso # (Auto) 100 (0-100) /uL Sodium 138 (137-145) mmol/L Potassium 3.1 L (3.4-5.1) mmol/L Chloride 97 L (98-107) mmol/L Carbon Dioxide 27 (22-32) mmol/L BUN 21 H (7-17) mg/dL Creatinine 0.97 (0.52-1.04) mg/dL Estimated GFR 58 L (>60) mL/min BUN/Creatinine Ratio 21.6 (6-22) Glucose 293 H (80-110) mg/dL Lactate 3.0 H (0.7-2.1) mmol/L Calcium 9.8 (8.4-10.2) mg/dL Total Bilirubin 0.8 (0.2-1.3) mg/dL AST 44 H (14-36) IU/L ALT 31 (<35) IU/L Alkaline Phosphatase 150 H (38-126) U/L Total Protein 8.7 H (6.3-8.2) g/dL Albumin 4.6 (3.5-5.0) g/dL Globulin 4.1 (1.7-4.1) g/dL Albumin/Globulin Ratio 1.1 (1.0-2.8) Lipase 9956 H (23-300) U/L SARS-CoV-2 (PCR) (Negative) Influenza A (RT-PCR) (NEGATIVE) Influenza B (RT-PCR) (NEGATIVE) RSV (PCR) (Negative) 03/12/22 Range/Units 06:42 WBC (4.5-11.0) X10^3/uL RBC (4.0-5.2) X10^6/uL Hgb (12.0-16.0) g/dL Hct (36-46) % MCV (80-100) fL MCH (26-34) PG MCHC (30-36) % RDW (11.6-14.8) % Plt Count (150-400) X10^3/uL Neut % (Auto) (50-75) % Lymph % (Auto) (25-40) % [place] % (Auto) (3-14) % Eos % (Auto) (2-4) % Baso % (Auto) (0-2) % Neut # (Auto) (5331-4904) /uL Lymph # (Auto) (8774-5863) /uL [place] # (Auto) (0-900) /uL Eos # (Auto) (0-450) /uL Baso # (Auto) (0-100) /uL Sodium (137-145) mmol/L Potassium (3.4-5.1) mmol/L Chloride (98-107) mmol/L Carbon Dioxide (22-32) mmol/L BUN (7-17) mg/dL Creatinine (0.52-1.04) mg/dL Estimated GFR (>60) mL/min BUN/Creatinine Ratio (6-22) Glucose (80-110) mg/dL Lactate (0.7-2.1) mmol/L Calcium (8.4-10.2) mg/dL Total Bilirubin (0.2-1.3) mg/dL AST (14-36) IU/L ALT (<35) IU/L Alkaline Phosphatase (38-126) U/L Total Protein (6.3-8.2) g/dL Albumin (3.5-5.0) g/dL Globulin (1.7-4.1) g/dL Albumin/Globulin Ratio (1.0-2.8) Lipase (23-300) U/L SARS-CoV-2 (PCR) Negative (Negative) Influenza A (RT-PCR) Flu a negative (NEGATIVE) Influenza B (RT-PCR) Flu b negative (NEGATIVE) RSV (PCR) Negative (Negative) Point of care testing: Urine Dip Bedside Urine Glucose 1000 mg/dl Bedside Urine Bilirubin - Negative Bedside Urine Ketone - Negative Urine Specific [place] 1.015 Bedside Urine Occult Blood - Negative Bedside Urine pH 5.5 Bedside Urine Protein - Negative Bedside Urine Urobilinogen - Negative Bedside Urine Nitrite - Negative Bedside Urine Leukocytes - Negative Esterase Imaging Data Abdominal x-ray: Radiologist's Impression: [address] [address] XRay Report Signed Patient: Karena Abbasi MR#: [id number] : 1940 Acct:[id number] Age/Sex: 81 / F Date of Service: 03/12/22 Loc: ED Accession Number: [id number] ?? Procedure: XR abdomen min 2V Ordering Provider: Dwayne Osullivan D.O. PROCEDURE:? XR ABDOMEN MIN 2V ? INDICATIONS:? abdominal pain, N/V ? TECHNIQUE:? 2 views of the abdomen were acquired.? ? COMPARISON:? [facility], CT, CT ABDOMEN PELVIS W CON, 05/01/2021, 12:38. ? FINDINGS:? Surgical changes and devices:? None.? ? Bowel:? No pneumoperitoneum.? The stomach is grossly distended with gas.? Dilated loops of proximal small bowel seen that measure up to 3.5 cm. ? Soft tissues:? No masses; visualized solid organ contours appear normal in size.? No suspicious abdominal calcifications.? ? Bones:? No suspicious bony abnormalities.? Age-appropriate bony degenerative changes are seen.? ? ? IMPRESSION:? Daily loops of small bowel and the grossly dilated stomach can be seen.? These imaging findings are worrisome for small bowel obstruction. ? Postoperative and degenerative changes are seen.? Note: No significant discrepancy from the preliminary report. ? Dictated by: Reuben Burgess M.D. on 03/12/2022 at 6:38 ? ? Approved by: Reuben Burgess M.D. on 03/12/2022 at 6:39? CT scan - abdomen/pelvis: Radiologist's Impression: [place] [address] CT Scan Report Signed Patient: Karena Abbasi MR#: [id number] : 1940 Acct:[id number] Age/Sex: 81 / F Date of Service: 03/12/22 Loc: ED Accession Number: [id number] ?? Procedure: CT abdomen pelvis w con Ordering Provider: Dwayne Osullivan D.O. PROCEDURE:? CT ABDOMEN PELVIS W CON ? INDICATIONS:? severe abdominal pain, SBO / volvulus ? TECHNIQUE:? After the administration of oral and IV contrast, axial sections were acquired from the lung bases to the pubic symphysis.? Coronal and sagittal reformats were performed.? For radiation dose reduction, the following was used:? automated exposure control, adjustment of mA and/or kV according to patient size. ? COMPARISON:? [facility], CT, CT ABDOMEN PELVIS W CON, 05/01/2021, 12:38.? [facility], CR, XR ABDOMEN MIN 2V, 03/12/2022, 6:53. ? FINDINGS:? Image quality:? Excellent.? ? Lung bases:? Unremarkable.? ? Heart:? No significant findings. ? ? ABDOMEN: Liver:? Unremarkable.? ? Gallbladder:? Removed.? ? Biliary ducts:? Unremarkable.? ? Pancreas:? Unremarkable.? ? Spleen:? Unremarkable.? ? Adrenal Glands:? Unremarkable.? ? Kidneys and Ureters:? Unremarkable.? ? ? Stomach and Bowel:? The stomach is grossly distended.? The proximal small bowel loops likewise are dilated, measuring approximately 3.5 cm.? The distal small bowel loops are decompressed.? A transition point seen within the right lower quadrant, where there is hyperenhancing bowel, as on series 3, image 31. Proximal to the transition point, there are several loops of small bowel demonstrate forming stool, which is consistent with stagnant small bowel contents. 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 The colon is decompressed. Peritoneum:? No abnormal intraperitoneal fluid.? No free air.? ? Ventral Wall: ? No hernia.? Abdominal Nodes:? No retroperitoneal or mesenteric adenopathy by size criteria.? Vessels:? Aorta and inferior vena cava are normal in size.? ? PELVIS: Pelvic Organs: This patient is status post hysterectomy. No adnexal masses are seen.? Bladder:? Unremarkable.? ? Pelvic Nodes: No enlarged lymph nodes.? Miscellaneous: No inguinal hernias are seen. ? ? ? Bones:? Focal L4-L5 degenerative change is seen, with milder degenerative change seen elsewhere.? Mild levoconvex scoliotic curvature is noted.? ? ? IMPRESSION:? ? Small-bowel obstruction, with a transition point seen within the right lower quadrant. ? ? Additional findings: Cholecystectomy Duodenal diverticulum Focal L4-L5 degenerative change Hysterectomy ? Dictated by: Reuben Burgess M.D. on 03/12/2022 at 7:12 ? ? Approved by: Reuben Burgess M.D. on 03/12/2022 at 7:17? x-ray: Radiologist's Impression: [place] [address] XRay Report Signed Patient: Karena Abbasi MR#: [id number] : 1940 Acct:[id number] Age/Sex: 81 / F Date of Service: 03/12/22 Loc: ED Accession Number: [id number] ?? Procedure: XR abdomen 1V Ordering Provider: Dorian Acharya D.O. PROCEDURE:? XR ABDOMEN 1V ? INDICATIONS:? placement of NG tube ? TECHNIQUE:? One view of the abdomen acquired.? ? COMPARISON:? [facility], CT, CT ABDOMEN PELVIS W CON, 03/12/2022, 7:30.? [facility], CR, XR CHEST 2V, 09/29/2021, 10:15.? [facility], CR, XR ABDOMEN MIN 2V, 03/12/2022, 6:53. ? FINDINGS:? ? Surgical changes and devices:? The tip of the gastric tube is seen overlying the mid stomach.? The side hole is seen below the level of diaphragm. ? Bowel:? The stomach is no longer grossly distended.? The small bowel loops appear improved compared to the prior. ? Soft tissues:? No suspicious abdominal calcifications.? Visualized solid organ contours appear normal in size.? ? Bones:? No suspicious bony lesions.? ? ? IMPRESSION:? The tip of the gastric tube is seen overlying the mid stomach. ? Improved appearance of the stomach and small bowel. ? ? Dictated by: Reuben Burgess M.D. on 03/12/2022 at 8:59 ? ? Approved by: Reuben Burgess M.D. on 03/12/2022 at 9:00?? [facility] Narrative Medical decision making narrative: Dr acharya: Received turned over. Reviewed patient's history and physical and labs up to this point. Patient has small-bowel obstruction. NG tube was placed without issue. Pain improved. Discussed the case with Dr. Maldonado with General surgery. Will admit for further evaluation and treatment. Discharge Plan Departure Patient Disposition: Admitted As Inpatient Clinical Impression: Small bowel obstruction Admit Date/Time: 03/12/22 10:03 Admit Provider: Brad Maldonado
[2022-03-12 07:04] LABS: Alanine Aminotransferase 31 IU/L (<35); Albumin 4.6 g/dL (3.5-5.0); Albumin Globulin Ratio 1.1 (1.0-2.8); Alkaline Phosphatase 150 U/L (38-126); Aspartate Aminotransferase 44 IU/L (14-36); BUN Creatinine Ratio 21.6 (6-22); Bilirubin Total 0.8 mg/dL (0.2-1.3); Blood Urea Nitrogen 21 mg/dL (7-17); Calcium 9.8 mg/dL (8.4-10.2); Carbon Dioxide 27 mmol/L (22-32); Chloride 97 mmol/L (98-107); Estimated Glomerular Filt Rate 58 mL/min (>60); Globulin 4.1 g/dL (1.7-4.1); Glucose 293 mg/dL (80-110); Potassium 3.1 mmol/L (3.4-5.1); Sodium 138 mmol/L (137-145); Total Protein 8.7 g/dL (6.3-8.2)
--- NOTE | 2022-03-12 07:06 | DI.CT.S_ITS ---
PROCEDURE: CT ABDOMEN PELVIS W CON INDICATIONS: severe abdominal pain, SBO / volvulus TECHNIQUE: After the administration of oral and IV contrast, axial sections were acquired from the lung bases to the pubic symphysis. Coronal and sagittal reformats were performed. For radiation dose reduction, the following was used: automated exposure control, adjustment of mA and/or kV according to patient size. COMPARISON: [facility], CT, CT ABDOMEN PELVIS W CON, 05/01/2021, 12:38. [facility], CR, XR ABDOMEN MIN 2V, 03/12/2022, 6:53. FINDINGS: Image quality: Excellent. Lung bases: Unremarkable. Heart: No significant findings. ABDOMEN: Liver: Unremarkable. Gallbladder: Removed. Biliary ducts: Unremarkable. Pancreas: Unremarkable. Spleen: Unremarkable. Adrenal Glands: Unremarkable. Kidneys and Ureters: Unremarkable. Stomach and Bowel: The stomach is grossly distended. The proximal small bowel loops likewise are dilated, measuring approximately 3.5 cm. The distal small bowel loops are decompressed. A transition point seen within the right lower quadrant, where there is hyperenhancing bowel, as on series 3, image 31. Proximal to the transition point, there are several loops of small bowel demonstrate forming stool, which is consistent with stagnant small bowel contents. 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 The colon is decompressed. Peritoneum: No abnormal intraperitoneal fluid. No free air. Ventral Wall: No hernia. Abdominal Nodes: No retroperitoneal or mesenteric adenopathy by size criteria. Vessels: Aorta and inferior vena cava are normal in size. PELVIS: Pelvic Organs: This patient is status post hysterectomy. No adnexal masses are seen. Bladder: Unremarkable. Pelvic Nodes: No enlarged lymph nodes. Miscellaneous: No inguinal hernias are seen. Bones: Focal L4-L5 degenerative change is seen, with milder degenerative change seen elsewhere. Mild levoconvex scoliotic curvature is noted. IMPRESSION: Small-bowel obstruction, with a transition point seen within the right lower quadrant. Additional findings: Cholecystectomy Duodenal diverticulum Focal L4-L5 degenerative change Hysterectomy Dictated by: Reuben Burgess M.D. on 03/12/2022 at 7:12 Approved by: Reuben Burgess M.D. on 03/12/2022 at 7:17
[2022-03-12 07:20] LABS: Add Manual Diff / Slide Review NO; Basophils Absolute Auto 100 /uL (0-100); Basophils Percent Auto 0.4 % (0-2); Eosinophils Absolute Auto 0 /uL (0-450); Eosinophils Percent Auto 0.2 % (2-4); Hematocrit 40.4 % (36-46); Hemoglobin 13.5 g/dL (12.0-16.0); Lymphocytes Absolute Auto 3000 /uL (1100-4500); Mean Corpuscular HGB Conc 33.6 % (30-36); Mean Corpuscular Hemoglobin 29.1 PG (26-34); Mean Corpuscular Volume 86.6 fL (80-100); Monocytes Absolute Auto 1100 /uL (0-900); Neutrophils Absolute Auto 13600 /uL (1500-7000); Neutrophils Percent Auto 76.4 % (50-75); Platelet Count 340 X10^3/uL (150-400); Red Blood Cell Count 4.66 X10^6/uL (4.0-5.2); Red Cell Distribution Width 14.4 % (11.6-14.8); White Blood Cell Count 17.8 X10^3/uL (4.5-11.0)
[2022-03-12 08:15] LABS: Influenza A - CEPHEID Flu A NEGATIVE (NEGATIVE); Influenza B - CEPHEID Flu B NEGATIVE (NEGATIVE); Respiratory Syncytial Virus Negative (Negative)
[2022-03-12 08:39] LABS: COVID-19 CEPHEID 4-PLEX PCR Negative (Negative)
[2022-03-12 08:51] LABS: Reflexed Lactate in 2 Hours Y
--- NOTE | 2022-03-12 09:07 | DI.RAD.S_ITS ---
PROCEDURE: XR ABDOMEN 1V INDICATIONS: placement of NG tube TECHNIQUE: One view of the abdomen acquired. COMPARISON: [facility], CT, CT ABDOMEN PELVIS W CON, 03/12/2022, 7:30. [facility], CR, XR CHEST 2V, 09/29/2021, 10:15. [facility], CR, XR ABDOMEN MIN 2V, 03/12/2022, 6:53. FINDINGS: Surgical changes and devices: The tip of the gastric tube is seen overlying the mid stomach. The side hole is seen below the level of diaphragm. Bowel: The stomach is no longer grossly distended. The small bowel loops appear improved compared to the prior. Soft tissues: No suspicious abdominal calcifications. Visualized solid organ contours appear normal in size. Bones: No suspicious bony lesions. IMPRESSION: The tip of the gastric tube is seen overlying the mid stomach. Improved appearance of the stomach and small bowel. Dictated by: Reuben Burgess M.D. on 03/12/2022 at 8:59 Approved by: Reuben Burgess M.D. on 03/12/2022 at 9:00
[2022-03-12 09:31] LABS: HEMOLYSIS 65 (0-50); Lipase 9956 U/L (23-300)
--- NOTE | 2022-03-12 10:52 | P.HP_ITS ---
History of Present Illness History of Present Illness Date Patient Seen: 03/12/22 Time Patient Seen: 11:06 Chief complaint: N/V/Abd pain Narrative: Karena is an 81-year-old woman who presented to the emergency room at [facility] 03/12/2022 with a small-bowel obstruction. She developed severe abdominal pain, associated bloating nausea vomiting, and inability to pass gas. At admission she is afebrile, vital signs are within normal limits. Laboratory results are significant for leukocytosis, WBC 18, potassium 3.1, lactate 3.0. CT abdomen pelvis demonstrates a small-bowel obstruction no free air or free fluid there was a transition point in the right lower quadrant. She has never had a prior bowel obstruction. She has had prior abdominal surgeries including sigmoid colectomy for diverticulitis (elective), cholecystectomy and hysterectomy. Since her arrival she has received a nasogastric tube which has been putting out bilious content of 500 mL and she feels significant improvement of abdominal pain. Patient History Surgical History H/O neck surgery H/O rotator cuff surgery History of colon resection History of hysterectomy Hx of cholecystectomy Status post hysterectomy Family & Social History Family History Mother Hypertension Diabetes mellitus Breast cancer Heart disease Father Heart disease Sister Breast cancer Social History: household members spouse Safety & Behavioral: Feels Safe in Current Yes Environment Tobacco & Substance use: Smoking Status Never smoker alcohol intake current alcohol intake frequency holiday/special occasion Substance Use Type does not use Meds Home Medications and Allergies Home Medications Medication Instructions Recorded Confirmed Type acyclovir 400 mg tablet 400 mg PO DAILY 04/22/21 04/25/21 History cyanocobalamin (vitamin B-12) 1 tab PO DAILY 04/22/21 04/25/21 History diltiazem HCl 120 mg 120 mg PO DAILY 04/22/21 04/25/21 History capsule,extended release 24 hr hydrocodone 5 mg-acetaminophen 325 1 tab PO DAILY 04/22/21 04/25/21 History mg tablet hydroxyzine HCl 50 mg tablet 50 mg PO DAILY 04/22/21 04/25/21 History losartan 100 1 tab PO DAILY 04/22/21 04/25/21 History mg-hydrochlorothiazide 12.5 mg tablet magnesium 1 tab PO DAILY 04/22/21 04/25/21 History multivitamin 1 tab PO DAILY 04/22/21 04/25/21 History omeprazole 20 mg capsule,delayed 20 mg PO BID 04/22/21 04/25/21 History release potassium chloride 10 mEq 10 meq PO DAILY 04/22/21 04/25/21 History tablet,extended release rosuvastatin 5 mg tablet 2.5 mg PO DAILY 04/22/21 04/25/21 History sleep aid PO 04/22/21 History sucralfate 1 gram tablet 1 g PO QID 04/22/21 04/25/21 History trazodone 50 mg tablet 50 mg PO DAILY 04/22/21 04/25/21 History vitamin A-vitamin C-vit E-min 1 tab PO DAILY 04/22/21 04/25/21 History tablet Allergies Allergy/AdvReac Type Severity Reaction Status Date / Time No Known Drug Allergies Allergy Verified 04/25/21 07:10 Exam Vital Signs (past 8 hours): - 03/12/22 06:38 Temperature 97 F L Pulse Rate 84 Respiratory Rate 22 Blood Pressure 130/95 H Pulse Oximetry 97 Oxygen Delivery Method Room Air Oxygen Delivery Method Room Air Narrative Exam Narrative: General elderly woman alert oriented no distress Chest nonlabored respiration Abdomen distended no peritonitis. Lower midline scar, nasogastric tube with bilious output with fecalization Objective Labs Result Diagrams: 03/12/22 06:42 03/12/22 06:42 Labs: Laboratory Results - last 24 hr 03/12/22 03/12/22 03/12/22 06:42 06:42 06:42 WBC 17.8 H RBC 4.66 Hgb 13.5 Hct 40.4 MCV 86.6 MCH 29.1 MCHC 33.6 RDW 14.4 Plt Count 340 Neut % (Auto) 76.4 H Lymph % (Auto) 17.0 L [place] % (Auto) 6.0 Eos % (Auto) 0.2 L Baso % (Auto) 0.4 Neut # (Auto) 88688 H Lymph # (Auto) 3000 [place] # (Auto) 1100 H Eos # (Auto) 0 Baso # (Auto) 100 Sodium 138 Potassium 3.1 L Chloride 97 L Carbon Dioxide 27 BUN 21 H Creatinine 0.97 Estimated GFR 58 L BUN/Creatinine Ratio 21.6 Glucose 293 H Lactate 3.0 H Calcium 9.8 Total Bilirubin 0.8 AST 44 H ALT 31 Alkaline Phosphatase 150 H Total Protein 8.7 H Albumin 4.6 Globulin 4.1 Albumin/Globulin Ratio 1.1 Lipase 9956 H SARS-CoV-2 (PCR) Influenza A (RT-PCR) Influenza B (RT-PCR) RSV (PCR) 03/12/22 06:42 WBC RBC Hgb Hct MCV MCH MCHC RDW Plt Count Neut % (Auto) Lymph % (Auto) [place] % (Auto) Eos % (Auto) Baso % (Auto) Neut # (Auto) Lymph # (Auto) [place] # (Auto) Eos # (Auto) Baso # (Auto) Sodium Potassium Chloride Carbon Dioxide BUN Creatinine Estimated GFR BUN/Creatinine Ratio Glucose Lactate Calcium Total Bilirubin AST ALT Alkaline Phosphatase Total Protein Albumin Globulin Albumin/Globulin Ratio Lipase SARS-CoV-2 (PCR) Negative Influenza A (RT-PCR) Flu a negative Influenza B (RT-PCR) Flu b negative RSV (PCR) Negative Assessment & Plan Assessment and plan (1) Small bowel obstruction: Status: Acute Assessment & Plan narrative: 81-year-old woman with prior abdominal surgery admitted with a small-bowel obstruction. No immediate indication for surgical intervention. We will proce ed with non operative management at this point. -nasogastric tube to low wall intermittent suction -IV fluid resuscitation -recheck lactate today -potassium replacement -Gastrografin challenge x-ray follow-up this afternoon -if she fails to improve with conservative measures she will require exploratory laparotomy and lysis of adhesions which has been discussed with the patient and her family -Lovenox for VTE prophylaxis Time Spent With Patient Critical Care time: I spent a total of [] minutes of critical care time on this patient's care today; this time is exclusive of procedural time.
[2022-03-12 12:11] LABS: Bacteria Urine Occasional (0-1); Culture Indicated Urine Cult Not Indicated; RBC Urine 0-1/HPF (0-5/HPF); Squamous Epithelial Cell Urine 0-1 /HPF (0-5/HPF); WBC Urine 0-1/HPF (0-5/HPF)
[2022-03-12] MEDS: POTASSIUM CHLORIDE IN WATER 10 MEQ/100 ML PIGGYBACK 100 MEQ IV ×5 (13:30→17:42)
--- NOTE | 2022-03-12 16:06 | DI.RAD.S_ITS ---
PROCEDURE: XR ABDOMEN 1V INDICATIONS: gastrografin challenge TECHNIQUE: One view of the abdomen acquired. COMPARISON: [facility], CR, XR ABDOMEN 1V, 03/12/2022, 9:02. FINDINGS: Gastrografin was administered. The stomach and small bowel are opacified with oral contrast. There is increased stool in the right colon consistent with constipation. Small bowel is mildly dilated. No contrast is seen in the large bowel. The bladder has contrast from a prior procedure. IMPRESSION: Gastrografin administered with contrast progressing to the distal 3rd of the small bowel. Small bowel is mildly dilated. Dictated by: Andres Yoder M.D. on 03/12/2022 at 16:59 Approved by: Andres Yoder M.D. on 03/12/2022 at 17:01
[2022-03-12 17:38] LABS: BUN Creatinine Ratio 27.5 (6-22); Blood Urea Nitrogen 22 mg/dL (7-17); Calcium 9.3 mg/dL (8.4-10.2); Carbon Dioxide 28 mmol/L (22-32); Chloride 100 mmol/L (98-107); Estimated Glomerular Filt Rate > 60 mL/min (>60); Glucose 161 mg/dL (80-110); Lactate (Lactic Acid) 1.7 mmol/L (0.7-2.1); Sodium 137 mmol/L (137-145)
[2022-03-12 17:39] LABS: HEMOLYSIS 87 (0-50); Potassium 5.5 mmol/L (3.4-5.1)
[2022-03-13] VITALS (15 sets, daily range): BP systolic 151–186; BP diastolic 63–81; PULSE 96–119; RESP 17–21; TEMP 36.7–38.3; O2SAT 91–96
[2022-03-13] MEDS: HYDROMORPHONE 0.5 MG INJ IV ×4 (01:00→14:48)
[2022-03-13] MEDS: hydroCHLOROthiazide 25 MG TABLET 12.5 MG PO (04:07)
[2022-03-13] MEDS: LOSARTAN 50 MG TABLET 100 MG PO (04:08)
--- NOTE | 2022-03-13 06:07 | DI.RAD.S_ITS ---
PROCEDURE: XR ABDOMEN 1V INDICATIONS: sbo TECHNIQUE: One view of the abdomen acquired. COMPARISON: [facility], CT, CT ABDOMEN PELVIS W CON, 03/12/2022, 7:30. [facility], CR, XR ABDOMEN 1V, 03/12/2022, 16:04. [facility], CR, XR ABDOMEN 1V, 03/12/2022, 9:02. FINDINGS: Surgical changes and devices: Enteric tube with the tip in the stomach. Cholecystectomy clips. Bowel: Contrast has transited into the right colon to the level of the hepatic flexure. There is a prominent loop of small bowel in the right lower abdomen. Stomach is not distended. Soft tissues: No suspicious abdominal calcifications. Visualized solid organ contours appear normal in size. Excreted contrast in the urinary bladder. Bones: No suspicious bony lesions. IMPRESSION: Prominent loop of small bowel in the right lower quadrant. However, enteric contrast has transited to the level of the hepatic flexure. This is most consistent with partial or resolving small bowel obstruction. Dictated by: Supa Espino M.D. on 03/13/2022 at 7:36 Approved by: Supa Espino M.D. on 03/13/2022 at 7:40
[2022-03-13 06:48] LABS: Add Manual Diff / Slide Review NO; Basophils Absolute Auto 100 /uL (0-100); Basophils Percent Auto 0.5 % (0-2); Eosinophils Absolute Auto 0 /uL (0-450); Eosinophils Percent Auto 0.1 % (2-4); Lymphocytes Absolute Auto 2100 /uL (1100-4500); Lymphocytes Percent Auto 13.8 % (25-40); Mean Corpuscular HGB Conc 32.5 % (30-36); Mean Corpuscular Hemoglobin 28.2 PG (26-34); Mean Corpuscular Volume 86.6 fL (80-100); Monocytes Absolute Auto 1100 /uL (0-900); Neutrophils Absolute Auto 11800 /uL (1500-7000); Neutrophils Percent Auto 78.6 % (50-75); Platelet Count 304 X10^3/uL (150-400); Red Blood Cell Count 4.62 X10^6/uL (4.0-5.2); Red Cell Distribution Width 14.6 % (11.6-14.8); White Blood Cell Count 15.1 X10^3/uL (4.5-11.0)
[2022-03-13 07:03] LABS: BUN Creatinine Ratio 31.3 (6-22); Blood Urea Nitrogen 25 mg/dL (7-17); Calcium 8.2 mg/dL (8.4-10.2); Carbon Dioxide 27 mmol/L (22-32); Chloride 104 mmol/L (98-107); Estimated Glomerular Filt Rate > 60 mL/min (>60); Glucose 137 mg/dL (80-110); HEMOLYSIS < 15 (0-50); Magnesium 1.7 mg/dL (1.6-2.3); Phosphorous 3.3 mg/dL (2.8-4.1); Potassium 3.7 mmol/L (3.4-5.1); Sodium 141 mmol/L (137-145)
[2022-03-13] MEDS: SODIUM CHLORIDE 0.9% 1,000 ML 150 ML IV ×3 (08:04→23:42)
--- NOTE | 2022-03-13 09:22 | CM.DANOTE ---
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 Patient clearly uncomfortable. Visit brief Patient lives w/spouse on her son and DELIA's property. Spouse Bill recently dx w/vascular dementia and patient is his primary caregiver. Spouse currently being looked after by son Srini and his . Discussed HH and patient thinks she may benefit, Choice list reviewed and no HH preference. In addition- discussed in home caregiving and patient admits it is time to consider this as she feels she will need help taking care of her upon return home Plan: DC home w/family is expected upon medical clearance. Will plan to make a HH referral and provide in home care resources to patient and her family YOON Mccray Discharge Planning/Care Management CM Discharge Assessment Start: 03/13/22 09:07 Freq: Status: Active Protocol: Document 03/13/22 09:07 LAKISHA (Rec: 03/13/22 09:22 LAKISHA [id number]) Discharge Planning Assessment Assigned Borematic Operator YOON Crum DPOA/Assigned Designee Name shannan Valerio (spouse Bill recently dx with Vascular Dementia) Contact Information [phone] Advance Directives? Yes Advance Directives on File No History Provided By Patient,Medical Record Prior Living Arrangements House Household Members spouse Type of transporation used prior to Drives own vehicle admit Independent with ADL's Yes Is patient alert and oriented? Yes Patient/Family Preference Home with Home Health Barriers to Discharge No Comment Patient waiting for medial plan of care to unfold but expects she will return home w /assist from her son and DELIA; patient is the primary caregiver for her spouse Vu, who recently was diagnosed with vascular dementia Discharge Plan Home with Home Health Transportation Arrangement Family Referrals Initiated Home Health Medicare Choice List Provided Yes SNF/HH Preference No HH preference Whiteboard Updated in Patient Room with Yes name and ext. # of Borematic Operator
[2022-03-13] MEDS: PANTOPRAZOLE 40 MG VIAL 20 MG IV (09:42)
[2022-03-13] MEDS: ENOXAPARIN 40 MG/0.4 ML SYRINGE SUBCUT (09:43)
[2022-03-13] MEDS: MAGNESIUM SULFATE 2 GM/50 ML PIGGYBACK IV (09:48)
--- NOTE | 2022-03-13 10:31 | PC.NURSE ---
Addendum entered by Nathalie Michael R.N. 03/13/22 13:51: Patient is tolerating her ice chips well. Resting at this time. Addendum entered by Nathalie Michael R.N. 03/13/22 11:46: into see patient and states that patient can have sips and chips at this time. She has perked up and her daughter is visiting in her room at this time. Original Note: Patients NG tube is to LIS, with bile in suction chamber. Patient does not feel well and wants to talk to the surgeon as soon as possible. Explained to patient when this RN sees Dr. Maldonado we will let him know. She has NS at 150cc/hr infusing and tolerating well. Patient also has a magnesium infusion as a secondary bag, this will infusing at 25cc/hr and patient is tolerating this well. She complains of r.mid abdominal pain, given 0.5mg of iv dilaudid for pain of 5/10, this does seem to help her discomfort.
--- NOTE | 2022-03-13 14:16 | PM.PN.1 ---
Subjective Subjective Date Patient Seen: 03/13/22 Time Patient Seen: 14:16 Interval history: 81 female small-bowel obstruction Minimal abdominal discomfort. Nasogastric tube to low low intermittent wall suction for the past 24 hours. Gastrografin challenge began yesterday x-ray this morning demonstrates contrast within the right colon. No bowel movement or flatus. Exam Vital Signs (past 8 hours): - 03/13/22 08:00 03/13/22 10:27 03/13/22 12:16 Temperature 99.1 F 100 F H Pulse Rate 97 H 99 H Respiratory Rate 21 18 Blood Pressure 169/69 H 151/65 H Pulse Oximetry 94 92 Oxygen Delivery Method Room Air Oxygen Flow Rate 0 1 03/13/22 12:31 Temperature 99.1 F Pulse Rate Respiratory Rate Blood Pressure Pulse Oximetry Oxygen Delivery Method Oxygen Flow Rate Oxygen Delivery Method Room Air Oxygen Flow Rate 1 Narrative Exam Narrative: General elderly woman alert oriented no distress Abdomen soft nontender. Minimally distended. Nasogastric tube with bilious output. Objective Labs Result Diagrams: 03/13/22 06:30 03/13/22 06:30 Labs: Laboratory Results - last 24 hr 03/12/22 03/12/22 03/13/22 17:12 17:12 06:30 WBC 15.1 H RBC 4.62 Hgb 13.0 Hct 40.0 MCV 86.6 MCH 28.2 MCHC 32.5 RDW 14.6 Plt Count 304 Neut % (Auto) 78.6 H Lymph % (Auto) 13.8 L [place] % (Auto) 7.0 Eos % (Auto) 0.1 L Baso % (Auto) 0.5 Neut # (Auto) 01915 H Lymph # (Auto) 2100 [place] # (Auto) 1100 H Eos # (Auto) 0 Baso # (Auto) 100 Sodium 137 Potassium 5.5 H D Chloride 100 Carbon Dioxide 28 BUN 22 H Creatinine 0.80 Estimated GFR > 60 BUN/Creatinine Ratio 27.5 H Glucose 161 H D Lactate 1.7 Calcium 9.3 Phosphorus Magnesium 03/13/22 06:30 WBC RBC Hgb Hct MCV MCH MCHC RDW Plt Count Neut % (Auto) Lymph % (Auto) [place] % (Auto) Eos % (Auto) Baso % (Auto) Neut # (Auto) Lymph # (Auto) [place] # (Auto) Eos # (Auto) Baso # (Auto) Sodium 141 Potassium 3.7 D Chloride 104 Carbon Dioxide 27 BUN 25 H Creatinine 0.80 Estimated GFR > 60 BUN/Creatinine Ratio 31.3 H Glucose 137 H Lactate Calcium 8.2 L Phosphorus 3.3 Magnesium 1.7 PFSH Surgical History H/O neck surgery H/O rotator cuff surgery History of colon resection History of hysterectomy Hx of cholecystectomy Status post hysterectomy Family History Mother Hypertension Diabetes mellitus Breast cancer Heart disease Father Heart disease Sister Breast cancer Social History (Updated 04/22/21 @ 09:24 by Yaa Yates RN) marital status: household members: spouse Previous occupational history: retired Smoking Status: Never smoker alcohol intake: current substance use type: does not use Assessment & Plan Assessment and plan (1) Small bowel obstruction: Status: Acute Assessment & Plan narrative: 81-year-old woman with a history of abdominal surgery admitted for a small-bowel obstruction. Gastrografin challenge now demonstrates that oral contrast this within the right colon which suggests that the obstruction is resolving. No return of bowel function yet. No indication for acute surgical intervention at this time. Leukocytosis of 15 noted is improved from yesterday however abdominal exam is benign afebrile and clinically she is improving. -IV fluids -NPO okay for sips and ice chips -nasogastric tube to low intermittent suction -await return of bowel function. Time Spent With Patient Critical Care time: I spent a total of [] minutes of critical care time on this patient's care today; this time is exclusive of procedural time. Quality VTE Deep Vein Thrombosis/Pulmonary Embolism Present on Admission: No
[2022-03-13] MEDS: ACETAMINOPHEN 325 MG TABLET 650 MG PO (19:43)
[2022-03-13 22:04] LABS: Add Manual Diff / Slide Review NO; Basophils Absolute Auto 100 /uL (0-100); Basophils Percent Auto 0.7 % (0-2); Eosinophils Absolute Auto 0 /uL (0-450); Hematocrit 34.1 % (36-46); Hemoglobin 11.3 g/dL (12.0-16.0); Lymphocytes Absolute Auto 2200 /uL (1100-4500); Lymphocytes Percent Auto 12.6 % (25-40); Mean Corpuscular HGB Conc 33.1 % (30-36); Mean Corpuscular Hemoglobin 28.4 PG (26-34); Mean Corpuscular Volume 85.9 fL (80-100); Monocytes Absolute Auto 1200 /uL (0-900); Monocytes Percent Auto 7.2 % (3-14); Neutrophils Absolute Auto 13700 /uL (1500-7000); Neutrophils Percent Auto 79.5 % (50-75); Platelet Count 258 X10^3/uL (150-400); Red Blood Cell Count 3.97 X10^6/uL (4.0-5.2); Red Cell Distribution Width 14.9 % (11.6-14.8); White Blood Cell Count 17.3 X10^3/uL (4.5-11.0)
--- NOTE | 2022-03-13 23:54 | PC.NURSE ---
Patient is alert and oriented. Breath sounds CTA but diminished in right LL. Has chronic cough but denies SOB and RA sat is 93%. HRR but tachy at 106 bpm w/elevated BP of 165/66. Fever present at shift change with temp of [address] Maldonado was contacted and Tylenol ordered/given with temp decreasing to 99.4. Patient has NG to LIS and denies nausea. BT are absent and is not passing flatus. Denies dysuria, frequency or urgency but reports she does dribble urine at times. Denied pain at time of assessment and is currently asleep. Is able to turn herself in bed. Gait not assessed but previous RN reports patient is up with 1 assist; patient denies use of AD but does report feeling weak in bilateral LE. Is wearing bilateral calf SCD's. Fall risk score is moderate and bed alarm is activated.
[2022-03-14] MEDS: HYDROMORPHONE 0.5 MG INJ IV ×3 (02:15→06:26)
[2022-03-14 04:19] VITALS: BP 171/67; PULSE 96; RESP 20; TEMP 36.9; O2SAT 93
[2022-03-14 05:28] LABS: Add Manual Diff / Slide Review NO; Basophils Absolute Auto 100 /uL (0-100); Basophils Percent Auto 0.6 % (0-2); Eosinophils Absolute Auto 0 /uL (0-450); Eosinophils Percent Auto 0.1 % (2-4); Hematocrit 33.3 % (36-46); Hemoglobin 11.1 g/dL (12.0-16.0); Lymphocytes Absolute Auto 2200 /uL (1100-4500); Lymphocytes Percent Auto 12.6 % (25-40); Mean Corpuscular HGB Conc 33.3 % (30-36); Mean Corpuscular Hemoglobin 28.4 PG (26-34); Mean Corpuscular Volume 85.2 fL (80-100); Monocytes Absolute Auto 1100 /uL (0-900); Monocytes Percent Auto 6.5 % (3-14); Neutrophils Absolute Auto 14200 /uL (1500-7000); Neutrophils Percent Auto 80.2 % (50-75); Platelet Count 251 X10^3/uL (150-400); Red Blood Cell Count 3.91 X10^6/uL (4.0-5.2); Red Cell Distribution Width 14.6 % (11.6-14.8); White Blood Cell Count 17.7 X10^3/uL (4.5-11.0)
[2022-03-14 05:35] LABS: BUN Creatinine Ratio 29.4 (6-22); Blood Urea Nitrogen 20 mg/dL (7-17); Calcium 7.6 mg/dL (8.4-10.2); Carbon Dioxide 26 mmol/L (22-32); Chloride 102 mmol/L (98-107); Estimated Glomerular Filt Rate > 60 mL/min (>60); Glucose 98 mg/dL (80-110); HEMOLYSIS < 15 (0-50); Magnesium 2.1 mg/dL (1.6-2.3); Phosphorous 2.3 mg/dL (2.8-4.1); Potassium 3.5 mmol/L (3.4-5.1); Sodium 135 mmol/L (137-145)
--- NOTE | 2022-03-14 05:38 | DI.RAD.S_ITS ---
PROCEDURE: XR ABDOMEN 1V INDICATIONS: Small-bowel obstruction TECHNIQUE: One view of the abdomen acquired. COMPARISON: [facility], CT, CT ABDOMEN PELVIS W CON, 03/12/2022, 7:30. [facility], CR, XR ABDOMEN 1V, 03/12/2022, 9:02. [facility], CR, XR ABDOMEN 1V, 03/12/2022, 16:04. [facility], CR, XR ABDOMEN 1V, 03/13/2022, 6:31. FINDINGS: Surgical changes and devices: A gastric tube is seen, with the tip overlying the mid stomach, as before. Cholecystectomy clips are seen. Bowel: Contrast is again seen within the ascending colon, which is similar to the prior examination. No frankly dilated loops of small bowel are now seen. Soft tissues: No suspicious abdominal calcifications. Visualized solid organ contours appear normal in size. Bones: No suspicious bony lesions. Age-appropriate bony degenerative changes are seen. IMPRESSION: No dilated loops of bowel are now seen. The previously seen small bowel obstruction is believed to have resolved. Stable contrast seen within the ascending colon. Note: No significant discrepancy from the preliminary report. Dictated by: Reuben Burgess M.D. on 03/14/2022 at 7:20 Approved by: Reuben Burgess M.D. on 03/14/2022 at 7:22
[2022-03-14 08:00] VITALS: BP 153/85; PULSE 93; RESP 18; TEMP 36.6; O2SAT 96
[2022-03-14] MEDS: PANTOPRAZOLE 40 MG VIAL 20 MG IV (08:43)
[2022-03-14] MEDS: POTASSIUM PHOSPHATE 15 MMOL in SODIUM CHLORIDE 0.9% 250 ML 63.75 MMOL IV (09:02)
--- NOTE | 2022-03-14 10:43 | DI.RAD.S_ITS ---
PROCEDURE: XR CHEST 2V INDICATIONS: cough leukocytosis TECHNIQUE: 2 views of the chest were acquired. COMPARISON: [facility], CT, CT ABDOMEN PELVIS W CON, 03/12/2022, 7:30. [facility], CR, XR CHEST 2V, 09/29/2021, 10:15. FINDINGS: Surgical changes and devices: Cholecystectomy clips are seen. Lungs and pleura: Low lung volumes are noted. This causes a crowded appearance to the lung markings and limits evaluation. Mild, streaky opacities are seen at the lung bases. No pneumothorax or large pleural effusion can be seen. Mediastinum: Mediastinal contours are normal. Heart size is normal. Bones and chest wall: No suspicious bony abnormalities. Age-appropriate bony degenerative changes are seen. Soft tissues appear unremarkable. IMPRESSION: Low lung volumes with mild streaky opacity at the lung bases, which is attributed to atelectasis. Differential diagnosis includes mild/early infiltrate, yet this is considered to be less likely. Postoperative and degenerative changes are seen. Dictated by: Reuben Burgess M.D. on 03/14/2022 at 10:16 Approved by: Reuben Burgess M.D. on 03/14/2022 at 10:18
--- NOTE | 2022-03-14 10:47 | P.PN_ITS ---
Subjective Subjective Date Patient Seen: 03/14/22 Time Patient Seen: 10:47 Interval history: 81-year-old woman admitted for a small-bowel obstruction. No flatus or bowel movement. No abdominal pain. Complaint of persistent cough, trouble urinating and urinary incontinence. Exam Vital Signs (past 8 hours): - 03/14/22 04:19 03/14/22 04:19 03/14/22 08:00 Temperature 98.5 F 98 F Pulse Rate 96 H 93 H Respiratory Rate 20 18 Blood Pressure 171/67 H 153/85 H Pulse Oximetry 93 93 96 Oxygen Delivery Method Room Air Oxygen Flow Rate 0 0 Oxygen Delivery Method Room Air Oxygen Flow Rate 0 Narrative Exam Narrative: General elderly woman alert oriented no acute distress Abdomen soft nondistended nontender Objective Labs Result Diagrams: 03/14/22 05:11 03/14/22 05:11 Labs: Laboratory Results - last 24 hr 03/13/22 03/14/22 03/14/22 21:20 05:11 05:11 WBC 17.3 H 17.7 H RBC 3.97 L 3.91 L Hgb 11.3 L 11.1 L Hct 34.1 L 33.3 L MCV 85.9 85.2 MCH 28.4 28.4 MCHC 33.1 33.3 RDW 14.9 H 14.6 Plt Count 258 251 Neut % (Auto) 79.5 H 80.2 H Lymph % (Auto) 12.6 L 12.6 L [place] % (Auto) 7.2 6.5 Eos % (Auto) 0.0 L 0.1 L Baso % (Auto) 0.7 0.6 Neut # (Auto) 10541 H 92748 H Lymph # (Auto) 2200 2200 [place] # (Auto) 1200 H 1100 H Eos # (Auto) 0 0 Baso # (Auto) 100 100 Sodium 135 L Potassium 3.5 Chloride 102 Carbon Dioxide 26 BUN 20 H Creatinine 0.68 Estimated GFR > 60 BUN/Creatinine Ratio 29.4 H Glucose 98 Calcium 7.6 L Phosphorus 2.3 L D Magnesium 2.1 PFSH Surgical History H/O neck surgery H/O rotator cuff surgery History of colon resection History of hysterectomy Hx of cholecystectomy Status post hysterectomy Family History Mother Hypertension Diabetes mellitus Breast cancer Heart disease Father Heart disease Sister Breast cancer Social History (Updated 04/22/21 @ 09:24 by Yaa Yates RN) marital status: household members: spouse Previous occupational history: retired Smoking Status: Never smoker alcohol intake: current substance use type: does not use Assessment & Plan Assessment and plan (1) Small bowel obstruction: Status: Acute Assessment & Plan narrative: 81-year-old woman admitted to the hospital for a small-bowel obstruction history of prior abdominal surgery. She has not had return of bowel function yet however I have reviewed her abdominal x-ray from today which demonstrates that the Gastrografin is now within her right colon and there was no evidence of dilated loops of small bowel which suggest that her obstruction is resolving. -nasogastric tube removed -clear liquid diet -MiraLax and suppository Leukocytosis-unknown etiology she has complaint of difficulty urinating and a persistent cough. UA, [facility] Time Sp[facility] With Patient Critical Care time: I spent a total of [] minutes of critical care time on this patient's care today; this time is exclusive of procedural time. Quality VTE Deep Vein Thrombosis/Pulmonary Embolism Present on Admission: No
--- NOTE | 2022-03-14 11:49 | DI.CT.S_ITS ---
PROCEDURE: CT ANGIO CHEST PE PROTOCOL INDICATIONS: tachypnea and tachycardia in mobile pt TECHNIQUE: After the administration of intravenous contrast, 2 mm thick sections acquired from the pulmonary apices to the posterior costophrenic angles. 3-dimensional maximum intensity projection (MIP) coronal and sagittal reformats were then acquired through the thorax. For radiation dose reduction, the following was used: automated exposure control, adjustment of mA and/or kV according to patient size. COMPARISON: [facility], CT, CT ABDOMEN PELVIS W CON, 03/12/2022, 7:30. [facility], CR, XR CHEST 2V, 03/14/2022, 10:48. FINDINGS: Image quality: Excellent. Pulmonary arteries: Pulmonary arteries are normal in size, and demonstrate no intraluminal filling defects to suggest central pulmonary embolism. Lungs and pleura: There is a small right-sided pleural effusion. Mild dependent atelectasis can be seen in both lung bases, right worse than left. No pneumothorax is seen. Mediastinum: Heart size is normal, without pericardial effusion. No mediastinal or hilar adenopathy. Thoracic aorta is normal in caliber and enhancement. Esophagus is normal in caliber. There is a small hiatal hernia. A mild amount of fluid material is seen within the soften his. Bones and chest wall: No suspicious bony lesions. Ribs and thoracic spine appear intact throughout. Thyroid gland demonstrates no significant abnormality. No axillary or supraclavicular adenopathy. Abdomen: Cholecystectomy clips are seen. Gastroesophageal junction postoperative clips are seen. Mild wall thickening can be seen involving the proximal duodenum. The visualized portions of the upper abdominal structures are otherwise unremarkable for imaging technique. IMPRESSION: Negative for pulmonary embolism. There is a small right-sided pleural effusion. Mild dependent atelectasis is seen. Mild wall thickening is seen involving the proximal duodenum. Additional findings: Small hiatal hernia, with apparent reflux Cholecystectomy Gastroesophageal junction postoperative clips Dictated by: Reuben Burgess M.D. on 03/14/2022 at 11:35 Approved by: Reuben Burgess M.D. on 03/14/2022 at 11:38
--- NOTE | 2022-03-14 11:52 | P.HP_ITS ---
History of Present Illness History of Present Illness Date Patient Seen: 03/14/22 Time Patient Seen: 11:53 Date of Onset of Symptoms: 03/09/22 Chief complaint: N/V/Abd pain Narrative: Pt is admitted under Dr. Maldonado for mgmt of SBO which appears to be resolved with conservative mgmt as oral contrast made it to colon. she is feeling ok but tired. I am consulted for a persistent leukocytosis that has been present since admission 3 days ago. She reports chronic cough controlled with daily hydrocodone 5mg which has not changed lately, and also endorses some urgency and dysuria that started a couple days before she presented to ED with obstruction symptoms. Otherwise feels ok she is hungry for jello. Patient History Surgical History H/O neck surgery H/O rotator cuff surgery History of colon resection History of hysterectomy Hx of cholecystectomy Status post hysterectomy Family & Social History Family History Mother Hypertension Diabetes mellitus Breast cancer Heart disease Father Heart disease Sister Breast cancer Social History: household members spouse Prior Living Arrangements House Safety & Behavioral: Feels Safe in Current Yes Environment Tobacco & Substance use: Smoking Status Never smoker alcohol intake current alcohol intake frequency holiday/special occasion Substance Use Type does not use Meds Home Medications and Allergies Home Medications Medication Instructions Recorded Confirmed Type acyclovir 400 mg tablet 400 mg PO DAILY 04/22/21 03/12/22 History cyanocobalamin (vitamin B-12) 1 tab PO DAILY 04/22/21 03/12/22 History diltiazem HCl 120 mg 120 mg PO DAILY 04/22/21 03/12/22 History capsule,extended release 24 hr hydrocodone 5 mg-acetaminophen 325 1 tab PO DAILY 04/22/21 03/12/22 History mg tablet hydroxyzine HCl 50 mg tablet 50 mg PO DAILY 04/22/21 03/12/22 History losartan 100 1 tab PO DAILY 04/22/21 03/12/22 History mg-hydrochlorothiazide 12.5 mg tablet magnesium 1 tab PO DAILY 04/22/21 03/12/22 History multivitamin 1 tab PO DAILY 04/22/21 03/12/22 History omeprazole 20 mg capsule,delayed 20 mg PO BID 04/22/21 03/12/22 History release potassium chloride 10 mEq 10 meq PO DAILY 04/22/21 03/12/22 History tablet,extended release rosuvastatin 5 mg tablet 2.5 mg PO DAILY 04/22/21 03/12/22 History vitamin A-vitamin C-vit E-min 1 tab PO DAILY 04/22/21 03/12/22 History tablet Allergies Allergy/AdvReac Type Severity Reaction Status Date / Time No Known Drug Allergies Allergy Verified 03/12/22 11:34 Review of Systems Review of Systems Narrative: all systems reviewed and negative except as otherwise documented in HPI Exam Vital Signs (past 8 hours): - 03/14/22 04:19 03/14/22 04:19 03/14/22 08:00 Temperature 98.5 F 98 F Pulse Rate 96 H 93 H Respiratory Rate 20 18 Blood Pressure 171/67 H 153/85 H Pulse Oximetry 93 93 96 Oxygen Delivery Method Room Air Oxygen Flow Rate 0 0 03/14/22 11:31 Temperature Pulse Rate Respiratory Rate Blood Pressure Pulse Oximetry Oxygen Delivery Method Room Air Oxygen Flow Rate Oxygen Delivery Method Room Air Oxygen Flow Rate 0 Narrative Exam Narrative: alert laying in bed HENMT Head: normocephalic and atraumatic Eyes General: appearance normal, both eyes and all related structures Resp Effort & Inspection: normal respiratory effort and tachypneic Auscultation: clear to auscultation bilaterally Cardio Rate: bradycardic and tachycardic Rhythm: regular rhythm Heart Sounds: S1 normal and S2 normal GI Other: active bowel sounds not notably tender to palpation Skin General: no rashes or lesions noted Neuro General: patient alert, patient awake and patient oriented x3 Extrem General: full ROM and no pedal edema Psych Speech and Movement: speech and movement normal Objective Labs Result Diagrams: 03/14/22 05:11 03/14/22 05:11 Labs: Laboratory Results - last 24 hr 03/13/22 03/14/22 03/14/22 21:20 05:11 05:11 WBC 17.3 H 17.7 H RBC 3.97 L 3.91 L Hgb 11.3 L 11.1 L Hct 34.1 L 33.3 L MCV 85.9 85.2 MCH 28.4 28.4 MCHC 33.1 33.3 RDW 14.9 H 14.6 Plt Count 258 251 Neut % (Auto) 79.5 H 80.2 H Lymph % (Auto) 12.6 L 12.6 L [place] % (Auto) 7.2 6.5 Eos % (Auto) 0.0 L 0.1 L Baso % (Auto) 0.7 0.6 Neut # (Auto) 99204 H 89069 H Lymph # (Auto) 2200 2200 [place] # (Auto) 1200 H 1100 H Eos # (Auto) 0 0 Baso # (Auto) 100 100 Sodium 135 L Potassium 3.5 Chloride 102 Carbon Dioxide 26 BUN 20 H Creatinine 0.68 Estimated GFR > 60 BUN/Creatinine Ratio 29.4 H Glucose 98 Calcium 7.6 L Phosphorus 2.3 L D Magnesium 2.1 Assessment & Plan Assessment & Plan narrative: #small bowel obstruction appears to be relieved, NGT is out and she is resuming clears. restart home meds. Dr. Maldonado is managing as primary #neutrophilic leukocytosis in setting of tachypnea and tachycardia persistent since admission and new since last outpatient labs earlier this fall. discussed possibilities with Dr. Maldonado latent infection (PNA vs UTI vs viral URI vs ??) vs reactive leukocytosis vs pulmonary embolism? Ordering chest CTA to rule out PE no target for antibiotics apparent at this time checking UA, UCx, and Bcx resume home meds and observe for now #chronic cough #hyperlipidemia #hypertension resume oral home meds dispo: SBO improving, still looking for leukocytosis source PCP: Juan Carlos Collins MDM: son Time Spent With Patient Critical Care time: I spent a total of [] minutes of critical care time on this patient's care today; this time is exclusive of procedural time. Quality VTE Deep Vein Thrombosis/Pulmonary Embolism Present on Admission: No
[2022-03-14 12:00] VITALS: BP 155/72; PULSE 96; RESP 18; TEMP 36.7; O2SAT 93
[2022-03-14] MEDS: dilTIAZem CD 120 MG CAP PO (14:30)
[2022-03-14] MEDS: HYDROCODONE/ACET 5/325 TABLET 1 TAB PO (14:30)
[2022-03-14] MEDS: hydroCHLOROthiazide 25 MG TABLET 12.5 MG PO (14:31)
[2022-03-14] MEDS: polyethylene glycoL 3350 17 GM POWD.PACK 34 GM PO (14:31)
[2022-03-14] MEDS: LOSARTAN 50 MG TABLET 100 MG PO (14:31)
[2022-03-14] MEDS: FLEETS ENEMA 1 EACH PR (14:32)
[2022-03-14 15:50] VITALS: BP 152/72; PULSE 98; RESP 18; TEMP 37; O2SAT 93
[2022-03-14 18:06] LABS: Appearance Urine UA CLEAR; Bilirubin Urine UA NEGATIVE (NEGATIVE); Color Urine UA YELLOW; Glucose Urine UA NEGATIVE (Negative); Ketones Urine UA TRACE (NEGATIVE); Leukocyte Esterase Urine UA NEGATIVE (NEGATIVE); Nitrite Urine UA NEGATIVE (Negative); Occult Blood Urine UA 2+ (Negative); Protein Urine UA NEGATIVE (Negative); Specific Gravity Urine UA 1.015 (1.000-1.035); Urobilinogen Urine UA 0.2 E.U./dL (0.2)
--- NOTE | 2022-03-14 18:10 | PC.NURSE ---
Patient had a fleets enema today and had an extra small results. Her NG tube was taken out by . She has been started on her home meds and blood pressure medication given.. Patient states that she has had a chronic cough, and she was given vicodin earlier and this was helpful. She had an xray and abdominal ct scan and has been started on miralax
[2022-03-14 18:19] LABS: Bacteria Urine None Seen; RBC Urine 0-1/HPF (0-5/HPF); Squamous Epithelial Cell Urine None Seen (0-5/HPF); WBC Urine 0-1/HPF (0-5/HPF)
[2022-03-14 20:00] VITALS: BP 156/52; PULSE 88; RESP 18; TEMP 36.8; O2SAT 93
[2022-03-14] MEDS: PANTOPRAZOLE DR 20 MG TABLET PO (20:57)
[2022-03-14] MEDS: ACETAMINOPHEN 325 MG TABLET 650 MG PO (20:59)
--- NOTE | 2022-03-14 23:08 | PC.NURSE ---
Patient is alert and oriented. TANANA and wears bilateral hearing aids. Breath sounds remain diminished in right LL and now with inspiratory crackles; RA sat is 93% and denies SOB. Chronic cough continues but improved now that she is receiving hydrocodone daily. HRR with rate in 80's. Denies nausea. Continues to have 3-5/10 upper abdominal pain and was medicated with Tylenol earlier by HENRY Calderon. BT continue to be hypoactive and denies passing flatus although did have small BM on previous shift after receiving Miralax + enema. Denies dysuria with voiding and dribbles urine so wears small pad. Is able to turn herself in bed and up to BSC with 1 assist. Refuses SCD's stating she is unable to sleep with them on. Fall risk score is moderate and bed alarm is activated.
[2022-03-14] MEDS: SODIUM CHLORIDE 0.9% 1,000 ML 70 ML IV (23:51)
[2022-03-15] VITALS (9 sets, daily range): BP systolic 129–161; BP diastolic 53–85; PULSE 78–90; RESP 15–17; TEMP 36–37.4; O2SAT 91–95
[2022-03-15 05:55] LABS: Add Manual Diff / Slide Review NO; Basophils Absolute Auto 100 /uL (0-100); Basophils Percent Auto 0.5 % (0-2); Eosinophils Absolute Auto 100 /uL (0-450); Eosinophils Percent Auto 0.3 % (2-4); Hematocrit 32.8 % (36-46); Hemoglobin 11.1 g/dL (12.0-16.0); Lymphocytes Absolute Auto 2100 /uL (1100-4500); Lymphocytes Percent Auto 11.8 % (25-40); Mean Corpuscular HGB Conc 33.9 % (30-36); Mean Corpuscular Hemoglobin 28.5 PG (26-34); Mean Corpuscular Volume 84.2 fL (80-100); Monocytes Absolute Auto 1100 /uL (0-900); Monocytes Percent Auto 6.4 % (3-14); Neutrophils Absolute Auto 14300 /uL (1500-7000); Platelet Count 260 X10^3/uL (150-400); Red Cell Distribution Width 14.3 % (11.6-14.8); White Blood Cell Count 17.7 X10^3/uL (4.5-11.0)
[2022-03-15 06:06] LABS: BUN Creatinine Ratio 19.7 (6-22); Blood Urea Nitrogen 12 mg/dL (7-17); Calcium 7.9 mg/dL (8.4-10.2); Carbon Dioxide 28 mmol/L (22-32); Chloride 102 mmol/L (98-107); Estimated Glomerular Filt Rate > 60 mL/min (>60); Glucose 115 mg/dL (80-110); HEMOLYSIS < 15 (0-50); Phosphorous 3.1 mg/dL (2.8-4.1); Potassium 2.9 mmol/L (3.4-5.1); Sodium 138 mmol/L (137-145)
[2022-03-15] MEDS: PANTOPRAZOLE DR 20 MG TABLET PO ×2 (06:16→21:29)
[2022-03-15] MEDS: ACETAMINOPHEN 325 MG TABLET 650 MG PO (06:18)
[2022-03-15] MEDS: POTASSIUM CHLORIDE IN WATER 10 MEQ/100 ML PIGGYBACK 100 MEQ IV ×6 (08:27→17:25)
[2022-03-15] MEDS: ATORVASTATIN 20 MG TABLET 5 MG PO (08:27)
[2022-03-15] MEDS: HYDROCODONE/ACET 5/325 TABLET 1 TAB PO (08:28)
[2022-03-15] MEDS: hydroCHLOROthiazide 25 MG TABLET 12.5 MG PO (08:28)
[2022-03-15] MEDS: LOSARTAN 50 MG TABLET 100 MG PO (08:29)
[2022-03-15] MEDS: dilTIAZem CD 120 MG CAP PO (08:29)
[2022-03-15] MEDS: CYANOCOBALAMIN (VITAMIN B-12) 100 MCG TABLET PO (08:33)
[2022-03-15] MEDS: ENOXAPARIN 40 MG/0.4 ML SYRINGE SUBCUT (08:33)
--- NOTE | 2022-03-15 11:00 | P.PN_ITS ---
Subjective Subjective Date Patient Seen: 03/15/22 Time Patient Seen: 11:00 Interval history: tolerated clear liquids no nausea. No abdominal pain. Feels weak. Small bowel movement Exam Vital Signs (past 8 hours): - 03/15/22 04:00 03/15/22 04:00 03/15/22 08:29 Temperature 97.9 F Pulse Rate 88 83 Respiratory Rate 16 Blood Pressure 161/57 H 133/53 L Pulse Oximetry 95 95 Oxygen Delivery Method Room Air Oxygen Flow Rate 0 0 03/15/22 08:00 Temperature 97 F L Pulse Rate 83 Respiratory Rate 17 Blood Pressure 141/58 H Pulse Oximetry 93 Oxygen Delivery Method Oxygen Flow Rate 0 Oxygen Delivery Method Room Air Oxygen Flow Rate 0 Narrative Exam Narrative: general elderly woman alert oriented no distress Chest nonlabored respirations Abdomen soft nondistended. Objective Labs Result Diagrams: 03/15/22 05:45 03/15/22 05:45 Labs: Laboratory Results - last 24 hr 03/14/22 03/15/22 03/15/22 17:43 05:45 05:45 WBC 17.7 H RBC 3.90 L Hgb 11.1 L Hct 32.8 L MCV 84.2 MCH 28.5 MCHC 33.9 RDW 14.3 Plt Count 260 Neut % (Auto) 81.0 H Lymph % (Auto) 11.8 L [place] % (Auto) 6.4 Eos % (Auto) 0.3 L Baso % (Auto) 0.5 Neut # (Auto) 23596 H Lymph # (Auto) 2100 [place] # (Auto) 1100 H Eos # (Auto) 100 Baso # (Auto) 100 Sodium 138 Potassium 2.9 L Chloride 102 Carbon Dioxide 28 BUN 12 Creatinine 0.61 Estimated GFR > 60 BUN/Creatinine Ratio 19.7 Glucose 115 H Calcium 7.9 L Phosphorus 3.1 Magnesium 2.0 Urine Color Yellow Urine Appearance Clear Urine pH 5.0 Ur Specific [place] 1.015 Urine Protein Negative Urine Glucose (UA) Negative Urine Ketones Trace H Urine Occult Blood 2+ H Urine Nitrate Negative Urine Bilirubin Negative Urine Urobilinogen 0.2 Ur Leukocyte Esterase Negative Urine RBC 0-1/hpf Urine WBC 0-1/hpf Ur Squamous Epith Cells None seen Urine Bacteria None seen PFSH Surgical History H/O neck surgery H/O rotator cuff surgery History of colon resection History of hysterectomy Hx of cholecystectomy Status post hysterectomy Family History Mother Hypertension Diabetes mellitus Breast cancer Heart disease Father Heart disease Sister Breast cancer Social History (Updated 04/22/21 @ 09:24 by Yaa Yates RN) marital status: household members: spouse Previous occupational history: retired Smoking Status: Never smoker alcohol intake: current substance use type: does not use Assessment & Plan Assessment & Plan narrative: 81-year-old woman with resolved small bowel obstruction. She has ongoing concerns of weakness and unexplained leukocytosis. Studies from yesterday are reviewed, CTA chest negative for PE, UA negative blood cultures negative so far. - regular diet -PT eval -no acute surgical issues can transfer to medicine for ongoing care vs discharge to rehab pending PT eval Time Spent With Patient Critical Care time: I spent a total of [] minutes of critical care time on this patient's care today; this time is exclusive of procedural time. Quality VTE Deep Vein Thrombosis/Pulmonary Embolism Present on Admission: No
--- NOTE | 2022-03-15 11:31 | P.PN_ITS ---
Subjective Subjective Interval history: seen 03/15/2022 at 1030 am CC: abdominal pain tolerating clears small BM yesterday no longer a surgical case she is coming over to medicine now leukocytosis persists with constant epigastric ache and tenderness. workup yesterday for leukocytosis generally unrevealing except for some duodenal wall thickening no PE Exam Vital Signs (past 8 hours): - 03/15/22 04:00 03/15/22 04:00 03/15/22 08:29 Temperature 97.9 F Pulse Rate 88 83 Respiratory Rate 16 Blood Pressure 161/57 H 133/53 L Pulse Oximetry 95 95 Oxygen Delivery Method Room Air Oxygen Flow Rate 0 0 03/15/22 08:00 Temperature 97 F L Pulse Rate 83 Respiratory Rate 17 Blood Pressure 141/58 H Pulse Oximetry 93 Oxygen Delivery Method Oxygen Flow Rate 0 Oxygen Delivery Method Room Air Oxygen Flow Rate 0 Const General: cooperative, comfortable and well developed [facility] Head: normocephalic and atraumatic Resp Effort & Inspection: normal respiratory effort and able to speak in complete sentences Auscultation: clear to auscultation bilaterally Cardio Other: mildly tachycardic regular rhythm GI Other: soft active bowel sounds tender to palpation in RUQ/epigastric area Neuro General: patient alert, patient awake, patient oriented x3 and moves all extremities Psych Speech and Movement: speech and movement normal Objective Labs Result Diagrams: 03/15/22 05:45 03/15/22 05:45 Labs: Laboratory Results - last 24 hr 03/14/22 03/15/22 03/15/22 17:43 05:45 05:45 WBC 17.7 H RBC 3.90 L Hgb 11.1 L Hct 32.8 L MCV 84.2 MCH 28.5 MCHC 33.9 RDW 14.3 Plt Count 260 Neut % (Auto) 81.0 H Lymph % (Auto) 11.8 L [place] % (Auto) 6.4 Eos % (Auto) 0.3 L Baso % (Auto) 0.5 Neut # (Auto) 62984 H Lymph # (Auto) 2100 [place] # (Auto) 1100 H Eos # (Auto) 100 Baso # (Auto) 100 Sodium 138 Potassium 2.9 L Chloride 102 Carbon Dioxide 28 BUN 12 Creatinine 0.61 Estimated GFR > 60 BUN/Creatinine Ratio 19.7 Glucose 115 H Calcium 7.9 L Phosphorus 3.1 Magnesium 2.0 Urine Color Yellow Urine Appearance Clear Urine pH 5.0 Ur Specific [place] 1.015 Urine Protein Negative Urine Glucose (UA) Negative Urine Ketones Trace H Urine Occult Blood 2+ H Urine Nitrate Negative Urine Bilirubin Negative Urine Urobilinogen 0.2 Ur Leukocyte Esterase Negative Urine RBC 0-1/hpf Urine WBC 0-1/hpf Ur Squamous Epith Cells None seen Urine Bacteria None seen PFSH Surgical History H/O neck surgery H/O rotator cuff surgery History of colon resection History of hysterectomy Hx of cholecystectomy Status post hysterectomy Family History Mother Hypertension Diabetes mellitus Breast cancer Heart disease Father Heart disease Sister Breast cancer Social History (Updated 04/22/21 @ 09:24 by Yaa Yates RN) marital status: household members: spouse Previous occupational history: retired Smoking Status: Never smoker alcohol intake: current substance use type: does not use Assessment & Plan Assessment & Plan narrative: #small bowel obstruction appears to be relieved, tolerating clears, restart home meds, ADAT #neutrophilic leukocytosis in setting of tachypnea and tachycardia persistent and stable since admission and new since last outpatient labs earlier this fall. UA unconcerning, CXR reassuring, CTA PE clear except for some proximal duodenal wall thickening suspect this may represent the issue at hand - inciting event for SBA still not evident - will try a dose of rocephin blood cultures pending resume home meds and observe for now #hypokalemia mild will replete oral #chronic cough #hyperlipidemia #hypertension resume oral home meds, up and ambulating dispo: SBO improving, still looking for leukocytosis source - may just be reactive - if eating well and feeling better tomorrow maybe can go home PCP: Juan Carlos Collins MDM: son Time Spent With Patient Critical Care time: I spent a total of [] minutes of critical care time on this patient's care today; this time is exclusive of procedural time. Quality VTE Deep Vein Thrombosis/Pulmonary Embolism Present on Admission: No
[2022-03-15] MEDS: ACYCLOVIR 400 MG TABLET PO (12:01)
[2022-03-15] MEDS: cefTRIAXone 1,000 MG in SODIUM CHLORIDE 0.9% 100 ML 200 MG IV (13:11)
[2022-03-15] MEDS: MAGNESIUM HYDROXIDE 30 ML UDC PO (13:12)
[2022-03-15 16:21] LABS: HEMOLYSIS < 15 (0-50)
--- NOTE | 2022-03-15 17:18 | DI.RAD.S_ITS ---
PROCEDURE: XR ABDOMEN 1V INDICATIONS: abdominal pain TECHNIQUE: One view of the abdomen acquired. COMPARISON: [facility], CR, XR CHEST 2V, 03/14/2022, 10:48. [facility], CR, XR ABDOMEN 1V, 03/14/2022, 5:43. FINDINGS: Surgical changes and devices: None. Bowel: Bowel gas pattern is nonspecific with abundant colonic gas and gastric gas. Paucity of bowel gas in small intestine. Soft tissues: Bibasilar infiltrate suspicious for pneumonia. No suspicious abdominal calcifications. Visualized solid organ contours appear normal in size. Bones: No suspicious bony lesions. IMPRESSION: 1. Nonspecific nonobstructive bowel gas pattern. 2. Bibasilar infiltrates suspicious for pneumonia. Dictated by: Keely Gama M.D. on 03/15/2022 at 18:26 Approved by: Keely Gama M.D. on 03/15/2022 at 18:28
[2022-03-15] MEDS: HYDROMORPHONE 0.5 MG INJ IV ×2 (17:24→21:33)
[2022-03-15] MEDS: POTASSIUM CHLORIDE 20 MEQ TAB PO (18:55)
[2022-03-15] MEDS: OXYCODONE IR 5 MG TABLET PO (18:55)
--- NOTE | 2022-03-15 19:33 | PC.NURSE ---
After lunch this afternoon, pt c/o worsening abdominal pain without nausea. Dr. Maldonado notified, abdominal xray and oxycodone ordered. Pain meds administered per MAR with moderate relief.
[2022-03-15] MEDS: hydrOXYzine pamoate 25 MG CAPSULE 50 MG PO (21:29)
[2022-03-16] VITALS (11 sets, daily range): BP systolic 131–167; BP diastolic 52–73; PULSE 79–89; RESP 16–18; TEMP 35.9–37.6; O2SAT 92–95
[2022-03-16] LABS: Acinetobacter baumannii Not Detected (Not Detect); Candida albicans Not Detected (Not Detect); Candida glabrata Not Detected (Not Detect); Candida krusei Not Detected (Not Detect); Candida parapsilosis Not Detected (Not Detect); Candida tropicalis Not Detected (Not Detect); E. coli Not Detected (Not Detect); Enterobacter cloacae complex Not Detected (Not Detect); Enterobacteriaceae species Not Detected (Not Detect); Enterococcus species Not Detected (Not Detect); Haemophilus influenzae Not Detected (Not Detect); Listeria monocytogenes Not Detected (Not Detect); Methicillin-resistant gene Not Detected (Not Detect); Neisseria meningitidis Not Detected (Not Detect); Proteus species Not Detected (Not Detect); Pseudomonas aeruginosa Not Detected (Not Detect); Serratia marcescens Not Detected (Not Detect); Staphylococcus species Detected (Not Detect); Streptococcus agalactiae (Gr B Not Detected (Not Detect); Streptococcus pneumonia Not Detected (Not Detect); Streptococcus pyogenes (Gr A) Not Detected (Not Detect); Streptococcus species Not Detected (Not Detect)
[2022-03-16] MEDS: ACETAMINOPHEN 325 MG TABLET 650 MG PO ×2 (02:34→20:34)
[2022-03-16 06:08] LABS: Add Manual Diff / Slide Review NO; Basophils Absolute Auto 0 /uL (0-100); Basophils Percent Auto 0.2 % (0-2); Eosinophils Absolute Auto 100 /uL (0-450); Eosinophils Percent Auto 0.8 % (2-4); Hematocrit 29.7 % (36-46); Lymphocytes Absolute Auto 2100 /uL (1100-4500); Lymphocytes Percent Auto 14.1 % (25-40); Mean Corpuscular HGB Conc 33.7 % (30-36); Mean Corpuscular Hemoglobin 28.5 PG (26-34); Mean Corpuscular Volume 84.5 fL (80-100); Monocytes Absolute Auto 1200 /uL (0-900); Neutrophils Absolute Auto 11500 /uL (1500-7000); Neutrophils Percent Auto 76.9 % (50-75); Platelet Count 275 X10^3/uL (150-400); Red Blood Cell Count 3.52 X10^6/uL (4.0-5.2); Red Cell Distribution Width 13.9 % (11.6-14.8); White Blood Cell Count 14.9 X10^3/uL (4.5-11.0)
[2022-03-16 06:17] LABS: Alanine Aminotransferase 26 IU/L (<35); Albumin 2.8 g/dL (3.5-5.0); Albumin Globulin Ratio 0.9 (1.0-2.8); Alkaline Phosphatase 99 U/L (38-126); Aspartate Aminotransferase 29 IU/L (14-36); BUN Creatinine Ratio 16.9 (6-22); Bilirubin Total 0.6 mg/dL (0.2-1.3); Blood Urea Nitrogen 11 mg/dL (7-17); Calcium 8.1 mg/dL (8.4-10.2); Carbon Dioxide 30 mmol/L (22-32); Chloride 100 mmol/L (98-107); Estimated Glomerular Filt Rate > 60 mL/min (>60); Globulin 3.1 g/dL (1.7-4.1); Glucose 116 mg/dL (80-110); HEMOLYSIS < 15 (0-50); Potassium 3.4 mmol/L (3.4-5.1); Sodium 135 mmol/L (137-145); Total Protein 5.9 g/dL (6.3-8.2)
[2022-03-16] MEDS: PANTOPRAZOLE DR 20 MG TABLET PO ×2 (06:45→20:34)
--- NOTE | 2022-03-16 08:12 | CM.DPC ---
DCP Cont Per RN, pt still having some pain but better controlled and some nausea after eating. SW made new [facility] referral and faxed clinicals along with completed F2F and alerted [facility] to cancel new referral as [facility] does not cover [facility] and referral to [facility] accidentally previously made. [facility] HH referral made due to Vendor Calendar and no HH preference per patient. Plan: SW to follow closely for pt progress and tolerating diet and continuing to ambulate towards plan of d/c to home with spouse and son support and new [facility] referral. SW to fax d/c summary and HH orders at discharge. YOON Godfrey
--- NOTE | 2022-03-16 08:32 | DI.RAD.S_ITS ---
PROCEDURE: XR ACUTE ABDOMEN SERIES INDICATIONS: increase pain TECHNIQUE: One view chest and two views of the abdomen were acquired. COMPARISON: [facility], , XR ABDOMEN 1V, 03/15/2022, 17:24. FINDINGS: Surgical changes and devices: None. Chest: Suspected lower lung opacities are present, along with a right pleural effusion. Abdomen: Contrast is seen in the colon. No bowel gas pattern suggestive of a high-grade obstruction. Cholecystectomy clips. Bones: No suspicious bony lesions. IMPRESSION: No evidence of high-grade obstruction by radiography. Suspected lower lung opacities along with a small right pleural effusion. Dictated by: Arnoldo Kaplan M.D. on 03/16/2022 at 9:23 Approved by: Arnoldo Kaplan M.D. on 03/16/2022 at 9:27
--- NOTE | 2022-03-16 08:33 | P.PN_ITS ---
Subjective Subjective Date Patient Seen: 03/16/22 Time Patient Seen: 08:33 Interval history: Patient seen in follow-up of abdominal pain. Patient overall maintenance issues she feels like she cough a lot. Freely not been a change. She is had a longstanding cough. After eating this morning she had increased abdominal pain. Still very uncomfortable. Could not eat very much. Did sleep well last night. Got pain medicines. No other significant change. No nausea no vomiting no blood in her stool or black or tarry stool that she can think of although she is not passing much flatus and she has no significant GI output. Exam Vital Signs (past 8 hours): - 03/16/22 01:00 03/16/22 02:34 03/16/22 03:30 Temperature 99.7 F H 99.6 F 98.8 F Pulse Rate 83 Respiratory Rate 16 Blood Pressure 153/54 H Pulse Oximetry 92 Oxygen Delivery Method Oxygen Flow Rate 0 03/16/22 04:00 03/16/22 05:25 Temperature 97.7 F Pulse Rate 80 Respiratory Rate 16 Blood Pressure 131/52 L Pulse Oximetry 92 93 Oxygen Delivery Method Room Air Oxygen Flow Rate 0 Oxygen Delivery Method Room Air Oxygen Flow Rate 0 Narrative Exam Narrative: Alert female uncomfortable lying in bed. Mucous membranes moist. Neck supple without adenopathy lungs are clear heart regular rate and rhythm abdomen is distended soft moderate upper tenderness with no rebound guarding or masses. Extremities unremarkable. Objective Labs Result Diagrams: 03/16/22 05:37 03/16/22 05:37 Labs: Laboratory Results - last 24 hr 03/15/22 03/15/22 03/16/22 13:55 15:58 05:37 WBC 14.9 H RBC 3.52 L Hgb 10.0 L Hct 29.7 L MCV 84.5 MCH 28.5 MCHC 33.7 RDW 13.9 Plt Count 275 Neut % (Auto) 76.9 H Lymph % (Auto) 14.1 L [place] % (Auto) 8.0 Eos % (Auto) 0.8 L Baso % (Auto) 0.2 Neut # (Auto) 96695 H Lymph # (Auto) 2100 [place] # (Auto) 1200 H Eos # (Auto) 100 Baso # (Auto) 0 Sodium Potassium 3.0 L Chloride Carbon Dioxide BUN Creatinine Estimated GFR BUN/Creatinine Ratio Glucose Calcium Magnesium 2.0 Total Bilirubin AST ALT Alkaline Phosphatase Total Protein Albumin Globulin Albumin/Globulin Ratio A. baumannii (PCR) Not detected Leny albicans (PCR) Not detected C. glabrata (PCR) Not detected C. krusei (PCR) Not detected C. parapsilosis (PCR) Not detected C. tropicalis (PCR) Not detected Enterobacteriac sp PCR Not detected E. cloacae complex PCR Not detected Enterococcus sp PCR Not detected E. coli (PCR) Not detected H. influenzae (PCR) Not detected Klebsiella oxytoca PCR Not detected Klebsiella pneumoniae Not detected List. monocytogenes PCR Not detected N. meningitidis (PCR) Not detected Proteus species (PCR) Not detected Serratia marcescens PCR Not detected Staphylococcus sp PCR Detected H Staph aureus (PCR) Not detected mecA-Methicil Res Gene Not detected Streptococcus sp PCR Not detected Group A Strep (PCR) Not detected Strep agalactiae (PCR) Not detected Strep pneumoniae (PCR) Not detected P. aeruginosa (PCR) Not detected Sujatha/B-Vanco Res Genes Not Reportable KPC-Carbap Res Gene PCR Not Reportable 03/16/22 05:37 WBC RBC Hgb Hct MCV MCH MCHC RDW Plt Count Neut % (Auto) Lymph % (Auto) [place] % (Auto) Eos % (Auto) Baso % (Auto) Neut # (Auto) Lymph # (Auto) [place] # (Auto) Eos # (Auto) Baso # (Auto) Sodium 135 L Potassium 3.4 Chloride 100 Carbon Dioxide 30 BUN 11 Creatinine 0.65 Estimated GFR > 60 BUN/Creatinine Ratio 16.9 Glucose 116 H Calcium 8.1 L Magnesium Total Bilirubin 0.6 AST 29 ALT 26 Alkaline Phosphatase 99 D Total Protein 5.9 L Albumin 2.8 L Globulin 3.1 Albumin/Globulin Ratio 0.9 L A. baumannii (PCR) Leny albicans (PCR) C. glabrata (PCR) C. krusei (PCR) C. parapsilosis (PCR) C. tropicalis (PCR) Enterobacteriac sp PCR E. cloacae complex PCR Enterococcus sp PCR E. coli (PCR) H. influenzae (PCR) Klebsiella oxytoca PCR Klebsiella pneumoniae List. monocytogenes PCR N. meningitidis (PCR) Proteus species (PCR) Serratia marcescens PCR Staphylococcus sp PCR Staph aureus (PCR) mecA-Methicil Res Gene Streptococcus sp PCR Group A Strep (PCR) Strep agalactiae (PCR) Strep pneumoniae (PCR) P. aeruginosa (PCR) Sujatha/B-Vanco Res Genes KPC-Carbap Res Gene PCR PFSH Surgical History H/O neck surgery H/O rotator cuff surgery History of colon resection History of hysterectomy Hx of cholecystectomy Status post hysterectomy Family History Mother Hypertension Diabetes mellitus Breast cancer Heart disease Father Heart disease Sister Breast cancer Social History (Updated 04/22/21 @ 09:24 by Yaa Yates RN) marital status: household members: spouse Previous occupational history: retired Smoking Status: Never smoker alcohol intake: current substance use type: does not use Assessment & Plan Assessment & Plan narrative: Abdominal pain. Etiology is unclear. Patient did have elevated lipase on admission. Could not maybe be related. Not tolerating p.o. today. Will discontinue diet. And go to full liquids. Will recheck lipase. CT scan certainly showed no evidence of significant pancreas issue. No other new change. Will make sure on PPI. Small-bowel obstruction. Appeared to be resolved. Patient with increased pain today will repeat x-ray just to be sure that that is completely resolved in will re-evaluate this afternoon. Neutropenic leukocytosis. Persistent throughout admission. [place] to be originally secondary to small-bowel obstruction but that seems to have resolved. No findings on pulmonary evaluation except small pleural effusion. Abdominal evaluation seems to be improved. Improved with Rocephin. Unclear what treatment is at this point but will continue. Seem to be resolving clinically patient not a lot better. Hypokalemia. Stable at this time. Anemia. Possibly secondary to fluid resuscitation. On low level of hydration at this time. Will see how things go I do not want to stop that will guaiac stool on re-evaluate with blood follow-up in the morning. Chronic cough. Will add guaifenesin. Hyperlipidemia. Stable. Hypertension. No issue at this time. Will follow. Disposition. Abdominal pain maybe certainly SBO resolved but abdominal discomfort still not normal. Patient does have a slight decrease in white count and overall maybe trending towards better I did not see her yesterday. Will follow-up labs and re-evaluate after that. Recheck this afternoon if continues to improve and no other abnormality is found will re-evaluate tomorrow possibly home it is unclear at this time 35 minutes spent reviewing with nurse patient labs and dictation. Chart review. Time Spent With Patient Critical Care time: I spent a total of [] minutes of critical care time on this patient's care today; this time is exclusive of procedural time. Quality VTE Deep Vein Thrombosis/Pulmonary Embolism Present on Admission: No
[2022-03-16 08:53] LABS: Lipase 88 U/L (23-300)
[2022-03-16] MEDS: hydroCHLOROthiazide 25 MG TABLET 12.5 MG PO (10:23)
[2022-03-16] MEDS: ACYCLOVIR 400 MG TABLET PO (10:23)
[2022-03-16] MEDS: POTASSIUM CHLORIDE 20 MEQ TAB PO (10:23)
[2022-03-16] MEDS: dilTIAZem CD 120 MG CAP PO (10:24)
[2022-03-16] MEDS: HYDROCODONE/ACET 5/325 TABLET 1 TAB PO (10:24)
[2022-03-16] MEDS: guaiFENesin ER 600 MG TAB PO ×2 (10:24→20:34)
[2022-03-16] MEDS: LOSARTAN 50 MG TABLET 100 MG PO (10:24)
[2022-03-16] MEDS: ATORVASTATIN 20 MG TABLET 5 MG PO (10:25)
[2022-03-16] MEDS: ENOXAPARIN 40 MG/0.4 ML SYRINGE SUBCUT (10:25)
[2022-03-16] MEDS: CYANOCOBALAMIN (VITAMIN B-12) 100 MCG TABLET PO (10:25)
--- NOTE | 2022-03-16 11:09 | PC.NURSE ---
Addendum entered by Nathalie Michael R.N. 03/16/22 17:23: Patient ambulated in the halls. Tolerated well. Given 5mg of oxycodone and helpful to patient. She is tolerating clear liquids well. Original Note: Assess- Patient is alert and oriented x4, she has a cough and was given her morning vicodin. Patient is coughing up some white colored phlegm. She denies any other discomfort. Up with stand by assist, and is voiding fine. Patient on a full liquid diet, she tried to eat a half of cheese sandwich and states that this bothered her stomach. Tolerated all medications with apple sauce. BT are hypoactive x4. Resting supine in bed and patient is saline locked.
--- NOTE | 2022-03-16 14:53 | P.PN_ITS ---
Subjective Subjective Interval history: Ms. Abbasi is feeling much better today than she did when she 1st presented in the emergency room. However she is still feeling some abdominal pain and a little bit of nausea. She is not very hungry but she would like to try some Jell-O or water to drink. She did denies passing flattus. Exam Vital Signs (past 8 hours): - 03/16/22 08:45 03/16/22 10:49 03/16/22 13:00 Temperature 96.7 F L 96.9 F L Pulse Rate 82 79 Respiratory Rate 18 18 Blood Pressure 165/73 H 131/60 Pulse Oximetry 95 94 Oxygen Delivery Method Room Air Oxygen Flow Rate 0 0 Oxygen Delivery Method Room Air Oxygen Flow Rate 0 Narrative Exam Narrative: She is awake alert cooperative and oriented. Oral mucous membranes are moist Her abdomen is distended and mildly tender. No peritoneal sign Resp Effort & Inspection: normal respiratory effort and able to speak in complete sentences Objective Labs Result Diagrams: 03/16/22 05:37 03/16/22 05:37 Labs: Laboratory Results - last 24 hr 03/15/22 03/15/22 03/16/22 13:55 15:58 05:37 WBC 14.9 H RBC 3.52 L Hgb 10.0 L Hct 29.7 L MCV 84.5 MCH 28.5 MCHC 33.7 RDW 13.9 Plt Count 275 Neut % (Auto) 76.9 H Lymph % (Auto) 14.1 L [place] % (Auto) 8.0 Eos % (Auto) 0.8 L Baso % (Auto) 0.2 Neut # (Auto) 75506 H Lymph # (Auto) 2100 [place] # (Auto) 1200 H Eos # (Auto) 100 Baso # (Auto) 0 Sodium Potassium 3.0 L Chloride Carbon Dioxide BUN Creatinine Estimated GFR BUN/Creatinine Ratio Glucose Calcium Magnesium 2.0 Total Bilirubin AST ALT Alkaline Phosphatase Total Protein Albumin Globulin Albumin/Globulin Ratio Lipase A. baumannii (PCR) Not detected Leny albicans (PCR) Not detected C. glabrata (PCR) Not detected C. krusei (PCR) Not detected C. parapsilosis (PCR) Not detected C. tropicalis (PCR) Not detected Enterobacteriac sp PCR Not detected E. cloacae complex PCR Not detected Enterococcus sp PCR Not detected E. coli (PCR) Not detected H. influenzae (PCR) Not detected Klebsiella oxytoca PCR Not detected Klebsiella pneumoniae Not detected List. monocytogenes PCR Not detected N. meningitidis (PCR) Not detected Proteus species (PCR) Not detected Serratia marcescens PCR Not detected Staphylococcus sp PCR Detected H Staph aureus (PCR) Not detected mecA-Methicil Res Gene Not detected Streptococcus sp PCR Not detected Group A Strep (PCR) Not detected Strep agalactiae (PCR) Not detected Strep pneumoniae (PCR) Not detected P. aeruginosa (PCR) Not detected Sujatha/B-Vanco Res Genes Not Reportable KPC-Carbap Res Gene PCR Not Reportable 03/16/22 03/16/22 05:37 05:37 WBC RBC Hgb Hct MCV MCH MCHC RDW Plt Count Neut % (Auto) Lymph % (Auto) [place] % (Auto) Eos % (Auto) Baso % (Auto) Neut # (Auto) Lymph # (Auto) [place] # (Auto) Eos # (Auto) Baso # (Auto) Sodium 135 L Potassium 3.4 Chloride 100 Carbon Dioxide 30 BUN 11 Creatinine 0.65 Estimated GFR > 60 BUN/Creatinine Ratio 16.9 Glucose 116 H Calcium 8.1 L Magnesium Total Bilirubin 0.6 AST 29 ALT 26 Alkaline Phosphatase 99 D Total Protein 5.9 L Albumin 2.8 L Globulin 3.1 Albumin/Globulin Ratio 0.9 L Lipase 88 D A. baumannii (PCR) Leny albicans (PCR) C. glabrata (PCR) C. krusei (PCR) C. parapsilosis (PCR) C. tropicalis (PCR) Enterobacteriac sp PCR E. cloacae complex PCR Enterococcus sp PCR E. coli (PCR) H. influenzae (PCR) Klebsiella oxytoca PCR Klebsiella pneumoniae List. monocytogenes PCR N. meningitidis (PCR) Proteus species (PCR) Serratia marcescens PCR Staphylococcus sp PCR Staph aureus (PCR) mecA-Methicil Res Gene Streptococcus sp PCR Group A Strep (PCR) Strep agalactiae (PCR) Strep pneumoniae (PCR) P. aeruginosa (PCR) Sujatha/B-Vanco Res Genes KPC-Carbap Res Gene PCR PFSH Surgical History H/O neck surgery H/O rotator cuff surgery History of colon resection History of hysterectomy Hx of cholecystectomy Status post hysterectomy Family History Mother Hypertension Diabetes mellitus Breast cancer Heart disease Father Heart disease Sister Breast cancer Social History (Updated 04/22/21 @ 09:24 by Yaa Yates RN) marital status: household members: spouse Previous occupational history: retired Smoking Status: Never smoker alcohol intake: current substance use type: does not use Assessment & Plan Post-op Assessment and plan (1) Small bowel obstruction: Assessment and Plan narrative: I suggested a clear liquid diet for now and would not advance her diet today. I also discussed with her NG tube and if her symptoms do not improve or get worse I would definitely recommend placement. I think for now since she is overall better and her NG tube was just removed that we can wait but I would advance slowly. Will check on her tomorrow please contact me at [phone] as needed with any questions or concerns. Quality VTE Deep Vein Thrombosis/Pulmonary Embolism Present on Admission: No
[2022-03-16] MEDS: OXYCODONE IR 5 MG TABLET PO ×2 (15:34→20:35)
[2022-03-16] MEDS: hydrOXYzine pamoate 25 MG CAPSULE 50 MG PO (20:34)
[2022-03-16] MEDS: SODIUM CHLORIDE 0.9% 1,000 ML 70 ML IV (20:43)
[2022-03-17] VITALS (18 sets, daily range): BP systolic 134–185; BP diastolic 50–81; PULSE 75–90; RESP 15–22; TEMP 36.2–36.7; O2SAT 93–98; BMI 24.2
--- NOTE | 2022-03-17 | PATH_ITS ---
[facility] Accession Number: [id number] . 01 Material submitted: . PART A: gastrointestinal site - GASTRIC BIOPSY PART B: gastrointestinal site - GASTRIC POLYP . 01 Diagnosis: A. Gastric, Biopsy: Gastric mucosa with mild chronic inflammation. No Helicobacter pylori organisms identified on immunohistochemical evaluation. No intestinal metaplasia, dysplasia or malignancy. . B. Gastric Polyp, Biopsy: Fundic gland polyp. No Helicobacter pylori organisms identified on H/E stain. No intestinal metaplasia, dysplasia or malignancy. MRV 03/19/2022 1219 Local . 01 Electronically signed: . Irena Harrison MD, Pathologist NPI- [id number] . 01 Gross description: . Part A: GASTRIC BIOPSY: Received in formalin is 1 fragment(s) of gray, soft tissue measuring 0.3 x 0.1 x 0.1 cm submitted entirely in 1 cassette(s) Part B: GASTRIC POLYP: Received in formalin is 1 fragment(s) of gray, soft tissue measuring 0.3 x 0.2 x 0.1 cm submitted entirely in 1 cassette(s) /CPE 03/18/2022 0605 Local . 01 Microscopic: . A. An immunohistochemical stain was performed to evaluate for Helicobacter organisms and is negative. The control stain showed appropriate reactivity. . * This test was developed and its performance characteristics determined by [facility]. It has not been cleared or approved by the U.S. Food and Drug Administration. The FDA has determined that such clearance or approval is not necessary. This test is used for clinical purposes. It should not be regarded as investigational or for research. . 01 Pathologist provided ICD-10: K29.70, D13.1 . 01 CPT . 299203, 422389, U02496 Specimen Comment: A courtesy copy of this report has been sent to [phone] Performed at: [address] [facility] [address] [facility], [place], [place] [id number] MD Dwight Estrada MD Phone: [phone]
[2022-03-17] MEDS: ACETAMINOPHEN 325 MG TABLET 650 MG PO ×2 (02:23→21:47)
[2022-03-17] MEDS: PANTOPRAZOLE DR 20 MG TABLET PO (06:55)
--- NOTE | 2022-03-17 08:30 | PM.PN.1 ---
Subjective Subjective Date Patient Seen: 03/17/22 Time Patient Seen: 08:30 Interval history: Patient seen in follow-up of abdominal pain. Feeling better this morning. No nausea or vomiting. Only had clear liquids yesterday. Seems much better after that. X-ray showed no definitive small-bowel obstruction. Patient has had no fever or chills. No other changes. Still not passing gas or stool. No fevers or chills. Sleeping better. Exam Vital Signs (past 8 hours): - 03/17/22 02:00 03/17/22 06:00 03/17/22 02:27 Temperature Pulse Rate 88 Respiratory Rate 22 Blood Pressure Pulse Oximetry 94 95 94 Oxygen Delivery Method Room Air Room Air Oxygen Flow Rate 03/17/22 05:04 Temperature 97.6 F Pulse Rate 75 Respiratory Rate 18 Blood Pressure 144/57 H Pulse Oximetry 95 Oxygen Delivery Method Oxygen Flow Rate 0 Oxygen Delivery Method Room Air Oxygen Flow Rate 0 Narrative Exam Narrative: Alert female much less fatigued this morning. Lungs are clear heart regular rate and rhythm abdomen soft mild diffuse pain. Worse in the epigastrium. No rebound guarding no masses. Objective Labs Result Diagrams: 03/17/22 08:40 03/17/22 08:40 Labs: Laboratory Results - last 24 hr 03/16/22 05:37 Lipase 88 D [facility] Surgical History H/O neck surgery H/O rotator cuff surgery History of colon resection History of hysterectomy Hx of cholecystectomy Status post hysterectomy Family History Mother Hypertension Diabetes mellitus Breast cancer Heart disease Father Heart disease Sister Breast cancer Social History (Updated 04/22/21 @ 09:24 by Yaa Yates RN) marital status: household members: spouse Previous occupational history: retired Smoking Status: Never smoker alcohol intake: current substance use type: does not use Assessment & Plan Assessment & Plan narrative: Abdominal pain. Patient is improved today. Mostly epigastric pain although there is some slight diffuse pain. X-rays yesterday did not show any evidence of small-bowel obstruction. She was on clear liquids for 24 hours and seems to have improved. Did feel better when she woke up this morning. Had a better night. Otherwise her white count is down. Her lipase is normal she is still not passing stool. Which is unclear etiology. No evidence of abscess or mass. Discussed with surgeon. Will obtain EGD today. If negative I am going to repeat her CT scan and follow. I think at this point will continue with clear liquids and re-evaluate after EGD. Small-bowel obstruction. Appears to be resolved. Whether not this is what is irritating her bowels is unclear. No evidence of abscess or other changes. Will continue to follow. Neutropenic leukocytosis. Etiology continues to be somewhat unclear although abdominal source seems most likely. White count continues to improve on 2nd day of Rocephin and will follow. At this point will continue treatment if any question will increase to anaerobic coverage. Hypokalemia. Stable. Anemia. Actually improved today. Probably secondary to dilution. Will continue to follow. Recheck tomorrow. No other changes. No evidence of bleeding. Chronic cough. Will continue with guaifenesin. And hydrocodone. Hyperlipidemia stable. Hypertension. Not an issue at this time will continue follow. Disposition. I would like to say she would be thinking about going home tomorrow will have to see what EGD shows. Workup is not complete and total cause of issue is not completely clear at this point. But all indicators are trending in the right direction. I do not think we have to make any changes and will follow. Hopefully home in the next 48 hours. 35 minutes spent with patient consults orders and dictation Time Spent With Patient Critical Care time: I spent a total of [] minutes of critical care time on this patient's care today; this time is exclusive of procedural time. Quality VTE Deep Vein Thrombosis/Pulmonary Embolism Present on Admission: No
[2022-03-17] MEDS: POTASSIUM CHLORIDE 20 MEQ TAB PO (08:40)
[2022-03-17] MEDS: hydroCHLOROthiazide 25 MG TABLET 12.5 MG PO (08:41)
[2022-03-17] MEDS: ATORVASTATIN 20 MG TABLET 5 MG PO (08:41)
[2022-03-17] MEDS: CYANOCOBALAMIN (VITAMIN B-12) 100 MCG TABLET PO (08:41)
[2022-03-17] MEDS: guaiFENesin ER 600 MG TAB PO ×2 (08:41→21:47)
[2022-03-17] MEDS: ACYCLOVIR 400 MG TABLET PO (08:41)
[2022-03-17] MEDS: dilTIAZem CD 120 MG CAP PO (08:42)
[2022-03-17] MEDS: LOSARTAN 50 MG TABLET 100 MG PO (08:42)
[2022-03-17] MEDS: HYDROCODONE/ACET 5/325 TABLET 1 TAB PO (08:57)
[2022-03-17] MEDS: MAGNESIUM HYDROXIDE 30 ML UDC 60 ML PO (09:07)
[2022-03-17 09:08] LABS: Add Manual Diff / Slide Review NO; Alanine Aminotransferase 26 IU/L (<35); Albumin 3.2 g/dL (3.5-5.0); Albumin Globulin Ratio 0.9 (1.0-2.8); Alkaline Phosphatase 133 U/L (38-126); Aspartate Aminotransferase 29 IU/L (14-36); BUN Creatinine Ratio 15.5 (6-22); Basophils Absolute Auto 100 /uL (0-100); Basophils Percent Auto 0.5 % (0-2); Bilirubin Total 0.6 mg/dL (0.2-1.3); Blood Urea Nitrogen 11 mg/dL (7-17); Calcium 8.8 mg/dL (8.4-10.2); Carbon Dioxide 33 mmol/L (22-32); Chloride 98 mmol/L (98-107); Eosinophils Absolute Auto 200 /uL (0-450); Eosinophils Percent Auto 1.5 % (2-4); Estimated Glomerular Filt Rate > 60 mL/min (>60); Globulin 3.5 g/dL (1.7-4.1); Glucose 101 mg/dL (80-110); HEMOLYSIS < 15 (0-50); Hematocrit 34.7 % (36-46); Hemoglobin 11.2 g/dL (12.0-16.0); Lymphocytes Absolute Auto 2500 /uL (1100-4500); Lymphocytes Percent Auto 21.3 % (25-40); Mean Corpuscular HGB Conc 32.3 % (30-36); Mean Corpuscular Hemoglobin 27.9 PG (26-34); Mean Corpuscular Volume 86.3 fL (80-100); Monocytes Absolute Auto 1000 /uL (0-900); Monocytes Percent Auto 8.4 % (3-14); Neutrophils Absolute Auto 8200 /uL (1500-7000); Neutrophils Percent Auto 68.3 % (50-75); Platelet Count 316 X10^3/uL (150-400); Potassium 3.5 mmol/L (3.4-5.1); Red Blood Cell Count 4.02 X10^6/uL (4.0-5.2); Red Cell Distribution Width 14.7 % (11.6-14.8); Sodium 138 mmol/L (137-145); Total Protein 6.7 g/dL (6.3-8.2); White Blood Cell Count 11.9 X10^3/uL (4.5-11.0)
[2022-03-17] MEDS: FLEETS ENEMA 1 EACH PR (09:08)
[2022-03-17] MEDS: ENOXAPARIN 40 MG/0.4 ML SYRINGE SUBCUT (09:10)
--- NOTE | 2022-03-17 11:23 | DIET.CONS2 ---
Dietary Inpatient Consultation Note Admission Date: 03/12/2022 10:03 81y F screened by RD for extended Clear liquid diet and LOS day 5. Pt admitted with N/V/abd px found to have SBO which resolved with gastrografin challenge. However, pt did not have BM until this am. 1100 nursing charted loose yellow BM. Pt ambulating halls independently. Recc low residue diet for a few days upon d/c. Diet: 03/17/22 08:47 NPO Diet Diet Modifications: NPO Type: NPO except for Ice Chips Nutrition Percent Meal Consumed 100% 03/17/22 10:00 Electronically Signed by: Lindsey John 03/17/22 11:24 Clinical Dietitian [address] [address]
[2022-03-17] MEDS: HYDROMORPHONE 0.5 MG INJ IV (13:01)
[2022-03-17 13:37] LABS: COVID19 -Nasal RAPID Negative (Negative)
--- NOTE | 2022-03-17 15:02 | P.PN_ITS ---
Subjective Subjective Date Patient Seen: 03/17/22 Time Patient Seen: 15:04 Interval history: Tolerated liquids. +bowel movement. Continued mild midepigastric pain. History of ulcers Exam Vital Signs (past 8 hours): - 03/17/22 08:42 03/17/22 10:00 03/17/22 10:00 Temperature 98.1 F Pulse Rate 77 77 Respiratory Rate 17 Blood Pressure 185/58 H 185/58 H Pulse Oximetry 96 95 Oxygen Delivery Method Room Air Oxygen Flow Rate 0 03/17/22 14:00 03/17/22 14:00 Temperature Pulse Rate 86 Respiratory Rate Blood Pressure 170/58 H Pulse Oximetry 93 93 Oxygen Delivery Method Room Air Oxygen Flow Rate 0 0 Oxygen Delivery Method Room Air Oxygen Flow Rate 0 Narrative Exam Narrative: General elderly woman alert oriented no acute distress Abdomen soft nondistended minimally tender epigastric Objective Labs Result Diagrams: 03/17/22 08:40 03/17/22 08:40 Labs: Laboratory Results - last 24 hr 03/17/22 03/17/22 03/17/22 08:40 08:40 12:57 WBC 11.9 H RBC 4.02 Hgb 11.2 L Hct 34.7 L MCV 86.3 MCH 27.9 MCHC 32.3 RDW 14.7 Plt Count 316 Neut % (Auto) 68.3 Lymph % (Auto) 21.3 L [place] % (Auto) 8.4 Eos % (Auto) 1.5 L Baso % (Auto) 0.5 Neut # (Auto) 8200 H Lymph # (Auto) 2500 [place] # (Auto) 1000 H Eos # (Auto) 200 Baso # (Auto) 100 Sodium 138 Potassium 3.5 Chloride 98 Carbon Dioxide 33 H BUN 11 Creatinine 0.71 Estimated GFR > 60 BUN/Creatinine Ratio 15.5 Glucose 101 Calcium 8.8 Total Bilirubin 0.6 AST 29 ALT 26 Alkaline Phosphatase 133 H Total Protein 6.7 Albumin 3.2 L Globulin 3.5 Albumin/Globulin Ratio 0.9 L SARS-CoV-2 (PCR) Negative PFSH Surgical History H/O neck surgery H/O rotator cuff surgery History of colon resection History of hysterectomy Hx of cholecystectomy Status post hysterectomy Family History Mother Hypertension Diabetes mellitus Breast cancer Heart disease Father Heart disease Sister Breast cancer Social History (Updated 04/22/21 @ 09:24 by Yaa Yates RN) marital status: household members: spouse Previous occupational history: retired Smoking Status: Never smoker alcohol intake: current substance use type: does not use Assessment & Plan Assessment and plan (1) Epigastric abdominal pain: Status: Acute Assessment & Plan narrative: 81-year-old woman admitted for a small-bowel obstruction now resolved with ongoing unexplained epigastric pain. We discussed proceeding with esophagoduodenoscopy for further evaluation. Overview of the procedure was discussed with the patient. Procedural risks including bleeding, missed diagnosis, intestinal perforation were discussed. Her questions have been answered and she is in agreement with this plan. Time Spent With Patient Critical Care time: I spent a total of [] minutes of critical care time on this patient's care today; this time is exclusive of procedural time. Quality VTE Deep Vein Thrombosis/Pulmonary Embolism Present on Admission: No
[2022-03-17] MEDS: LACTATED RINGERS 1,000 ML 42 ML IV (15:29)
--- NOTE | 2022-03-17 15:50 | PM.OP.EGD ---
Operative Date/Time/Diagnoses Date of procedure: 03/17/22 Time of procedure: 15:50 Pre-op diagnosis: Epigastric pain Post-op diagnosis: other (Gastritis) Procedure & Clinicians Study performed: Esophagoduodenoscopy Same procedure as scheduled: Yes Indications: Epigastric pain Surgeon: Brad Maldonado Procedure Notes Procedure in detail: Patient placed in left lateral decubitus position. Time out was performed. A bite block was placed. the scope was inserted into the mouth and advanced through the esophagus and into the stomach. The stomach had gastritis primarily in the antrum and pyloric channel. Biopsies of the gastritis were taken with forceps. Stomach was also notable for numerous polyps varying between several mm and least 2 cm. Biopsy of 1 of the gastric polyps was performed. The pylorus was intubated and the duodenum was normal to the 2nd portion. The scope was withdrawn into the esophagus the Z line was seen at 35 cm from the incisions. There was no Pan's esophagitis or masses or strictures. Stomach was desufflated and scope removed. Patient tolerated procedure well. Findings: gastritis Specimen(s): other (Gastric polyp, gastric biopsy) Complications: none Impression: Gastritis Post-procedure Plan for aftercare: Continue omeprazole twice daily. May return to [facility] for further care. Disposition: Acute Care
[2022-03-17] MEDS: OXYCODONE IR 5 MG TABLET PO (16:48)
[2022-03-17] MEDS: polyethylene glycoL 3350 17 GM POWD.PACK 68 GM PO (16:51)
[2022-03-17] MEDS: SODIUM CHLORIDE 0.9% 1,000 ML 70 ML IV (18:43)
[2022-03-17] MEDS: PANTOPRAZOLE 40 MG VIAL IV (21:47)
[2022-03-17] MEDS: hydrOXYzine pamoate 25 MG CAPSULE 50 MG PO (21:47)
[2022-03-18] VITALS (10 sets, daily range): BP systolic 147–174; BP diastolic 52–65; PULSE 72–83; RESP 16–18; TEMP 36.4–37.3; O2SAT 93–96
[2022-03-18 05:59] LABS: Alanine Aminotransferase 32 IU/L (<35); Albumin 2.8 g/dL (3.5-5.0); Albumin Globulin Ratio 0.8 (1.0-2.8); Alkaline Phosphatase 130 U/L (38-126); Aspartate Aminotransferase 37 IU/L (14-36); BUN Creatinine Ratio 13.5 (6-22); Bilirubin Total 0.5 mg/dL (0.2-1.3); Blood Urea Nitrogen 10 mg/dL (7-17); Calcium 8.5 mg/dL (8.4-10.2); Carbon Dioxide 32 mmol/L (22-32); Chloride 100 mmol/L (98-107); Estimated Glomerular Filt Rate > 60 mL/min (>60); Globulin 3.3 g/dL (1.7-4.1); Glucose 111 mg/dL (80-110); HEMOLYSIS < 15 (0-50); Potassium 3.6 mmol/L (3.4-5.1); Sodium 138 mmol/L (137-145); Total Protein 6.1 g/dL (6.3-8.2)
[2022-03-18 06:00] LABS: Add Manual Diff / Slide Review NO; Basophils Absolute Auto 0 /uL (0-100); Basophils Percent Auto 0.4 % (0-2); Eosinophils Absolute Auto 200 /uL (0-450); Eosinophils Percent Auto 1.6 % (2-4); Hematocrit 31.6 % (36-46); Hemoglobin 10.4 g/dL (12.0-16.0); Lymphocytes Absolute Auto 2000 /uL (1100-4500); Lymphocytes Percent Auto 17.6 % (25-40); Mean Corpuscular HGB Conc 32.8 % (30-36); Mean Corpuscular Hemoglobin 28.1 PG (26-34); Mean Corpuscular Volume 85.5 fL (80-100); Monocytes Absolute Auto 900 /uL (0-900); Monocytes Percent Auto 8.3 % (3-14); Neutrophils Absolute Auto 8000 /uL (1500-7000); Neutrophils Percent Auto 72.1 % (50-75); Platelet Count 314 X10^3/uL (150-400); Red Blood Cell Count 3.69 X10^6/uL (4.0-5.2); Red Cell Distribution Width 14.6 % (11.6-14.8); White Blood Cell Count 11.1 X10^3/uL (4.5-11.0)
--- NOTE | 2022-03-18 08:57 | PM.PN.1 ---
Subjective Subjective Date Patient Seen: 03/18/22 Time Patient Seen: 08:57 Interval history: Patient seen in follow-up of abdominal small still with epigastric pain which is pretty significant. Hurts to eat. Has had a bowel movement. No blood. No fever no chills no other. Chest pain. No shortness of breath. Exam Vital Signs (past 8 hours): - 03/18/22 02:00 03/18/22 06:00 03/18/22 07:56 Temperature 97.5 F L 97.8 F Pulse Rate 82 73 Respiratory Rate 18 16 Blood Pressure 155/62 H 174/57 H Pulse Oximetry 94 94 94 Oxygen Delivery Method Room Air Oxygen Flow Rate 0 0 Oxygen Delivery Method Room Air Oxygen Flow Rate 0 Narrative Exam Narrative: Alert elderly female lying in bed no acute distress. Lungs are clear. Heart regular rate and rhythm. Abdomen improve bowel sounds. Epigastric discomfort no rebound guarding no masses. Objective Labs Result Diagrams: 03/18/22 05:23 03/18/22 05:23 Labs: Laboratory Results - last 24 hr 03/17/22 03/17/22 03/17/22 08:40 08:40 12:57 WBC 11.9 H RBC 4.02 Hgb 11.2 L Hct 34.7 L MCV 86.3 MCH 27.9 MCHC 32.3 RDW 14.7 Plt Count 316 Neut % (Auto) 68.3 Lymph % (Auto) 21.3 L [place] % (Auto) 8.4 Eos % (Auto) 1.5 L Baso % (Auto) 0.5 Neut # (Auto) 8200 H Lymph # (Auto) 2500 [place] # (Auto) 1000 H Eos # (Auto) 200 Baso # (Auto) 100 Sodium 138 Potassium 3.5 Chloride 98 Carbon Dioxide 33 H BUN 11 Creatinine 0.71 Estimated GFR > 60 BUN/Creatinine Ratio 15.5 Glucose 101 Calcium 8.8 Total Bilirubin 0.6 AST 29 ALT 26 Alkaline Phosphatase 133 H Total Protein 6.7 Albumin 3.2 L Globulin 3.5 Albumin/Globulin Ratio 0.9 L SARS-CoV-2 (PCR) Negative 03/18/22 03/18/22 05:23 05:23 WBC 11.1 H RBC 3.69 L Hgb 10.4 L Hct 31.6 L MCV 85.5 MCH 28.1 MCHC 32.8 RDW 14.6 Plt Count 314 Neut % (Auto) 72.1 Lymph % (Auto) 17.6 L [place] % (Auto) 8.3 Eos % (Auto) 1.6 L Baso % (Auto) 0.4 Neut # (Auto) 8000 H Lymph # (Auto) 2000 [place] # (Auto) 900 Eos # (Auto) 200 Baso # (Auto) 0 Sodium 138 Potassium 3.6 Chloride 100 Carbon Dioxide 32 BUN 10 Creatinine 0.74 Estimated GFR > 60 BUN/Creatinine Ratio 13.5 Glucose 111 H Calcium 8.5 Total Bilirubin 0.5 AST 37 H ALT 32 Alkaline Phosphatase 130 H Total Protein 6.1 L Albumin 2.8 L Globulin 3.3 Albumin/Globulin Ratio 0.8 L SARS-CoV-2 (PCR) PFSH Surgical History H/O neck surgery H/O rotator cuff surgery History of colon resection History of hysterectomy Hx of cholecystectomy Status post hysterectomy Family History Mother Hypertension Diabetes mellitus Breast cancer Heart disease Father Heart disease Sister Breast cancer Social History (Updated 04/22/21 @ 09:24 by Yaa Yates RN) marital status: household members: spouse Previous occupational history: retired Smoking Status: Never smoker alcohol intake: current substance use type: does not use Assessment & Plan Assessment & Plan narrative: Abdominal pain. Small-bowel obstruction is improved. Did have a bowel movement. Although was given MiraLax. Epigastric discomfort is primary issue EGD showed gastritis. Assume this is the main issue at this point. White count is coming down. No evidence of acute abdomen. Vital sounds without fever. At this point will continue increase in PPI and add Carafate. Will see how she does. Hoping we can get her to eat without discomfort and can discharge home. Certainly need to eat before we go home. Appreciate surgery's input and help. Small-bowel obstruction. Appears to be resolved. No issue at this time. Will continue to follow. Neutropenic leukocytosis. 1 g of Rocephin given. Number has been trending down words. No evidence of infection either pulmonary urine or abdominal contents. Will continue to follow trend. Re-evaluate a.m.. Hypokalemia. Stable. Anemia. Stable. No evidence of bleeding. Will follow. Hypertension. Elevated today but has been mildly elevated do not want to make significant changes if continues to remain in the 140s will adjust as outpatient. If continues in the 170s will make change. Hyperlipidemia stable. Chronic cough. Improved with guaifenesin hydrocodone. Disposition. I am hoping with addition of Carafate she will be feeling better and go home tomorrow. Will see how things go. Will discuss with surgery who certainly is admitting doctor see what they think. No other changes. Discussed with patient. Time Spent With Patient Critical Care time: I spent a total of [] minutes of critical care time on this patient's care today; this time is exclusive of procedural time. Quality VTE Deep Vein Thrombosis/Pulmonary Embolism Present on Admission: No
[2022-03-18] MEDS: SODIUM CHLORIDE 0.9% 1,000 ML 70 ML IV (10:02)
[2022-03-18] MEDS: PANTOPRAZOLE 40 MG VIAL IV ×2 (10:02→20:21)
[2022-03-18] MEDS: OXYCODONE IR 5 MG TABLET PO ×2 (10:10→17:15)
[2022-03-18] MEDS: ENOXAPARIN 40 MG/0.4 ML SYRINGE SUBCUT ×2 (10:10→10:21)
[2022-03-18] MEDS: hydroCHLOROthiazide 25 MG TABLET 12.5 MG PO (10:39)
[2022-03-18] MEDS: LOSARTAN 50 MG TABLET 100 MG PO (10:39)
[2022-03-18] MEDS: dilTIAZem CD 120 MG CAP PO (10:39)
[2022-03-18] MEDS: ATORVASTATIN 20 MG TABLET 5 MG PO (10:39)
[2022-03-18] MEDS: POTASSIUM CHLORIDE 20 MEQ TAB PO (10:39)
[2022-03-18] MEDS: CYANOCOBALAMIN (VITAMIN B-12) 100 MCG TABLET PO (10:39)
[2022-03-18] MEDS: HYDROCODONE/ACET 5/325 TABLET 1 TAB PO (10:39)
[2022-03-18] MEDS: ACYCLOVIR 400 MG TABLET PO (10:39)
[2022-03-18] MEDS: guaiFENesin ER 600 MG TAB PO ×2 (10:39→20:21)
[2022-03-18] MEDS: SUCRALFATE 1 GM/10 ML ORAL SUSP PO ×2 (13:09→19:31)
--- NOTE | 2022-03-18 14:47 | CM.DPC ---
Addendum entered by YOON Godfrey 03/18/22 15:47: ADD: SW received a call from pt's sister and brother wilman inquiring about d/c plan as they have concerns with pt's own memory issues let along pt's spouse with vascular dementia. They are very appreciative of [facility] referral and they plan to work with pt's son regarding better med management between themselves and pt's son. All 3 live right near pt and spouse and are aware that more assist at home is needed. Sister and ARUN have PP CG agency list and encouraged them to begin calling for future needs. Sister, brother in law, and son plan to increase their assist until formal CG assist can be set up. Sister and ARUN request call tomorrow at d/c as they will provide transport home and need to hear d/c instructions as pt will forget and get her medications confused. Family will provide daily med dispensing for pt and spouse at d/c. Sister contact is [phone] and ARUN is [phone]. BF Original Note: DCP Cont: Per MD, pt seems to be feeling better this morning and anticipate continued attempts at pt tolerating full liquid diet towards likely d/c home tomorrow if stable and will continue to consult with Surgeon. Per Lapel Baster, working with Surgeon towards changing diet orders to confirm if pt can tolerate full liquids and could then likely d/c home safely. Per RN, pt has been ambulating halls with steady gait and did have a loose BM. Plan: SW to continue to follow for plan of d/c home via family POV and new [facility] referral made and [facility] already faxed. SW to fax [facility] the d/c summary at discharge. YOON Godfrey
--- NOTE | 2022-03-18 17:10 | PM.PN.1 ---
Subjective Subjective Date Patient Seen: 03/18/22 Time Patient Seen: 17:10 Interval history: Mild epigastric. Tolerated full liquids this morning. EGD yesterday demonstrated gastritis no distinct ulcer. Bowel movement+ Exam Vital Signs (past 8 hours): - 03/18/22 11:00 03/18/22 15:00 Temperature 99.2 F 98.4 F Pulse Rate 81 75 Respiratory Rate 18 18 Blood Pressure 154/64 H 148/65 H Pulse Oximetry 95 93 Oxygen Flow Rate 0 0 Oxygen Delivery Method Room Air Oxygen Flow Rate 0 Narrative Exam Narrative: General elderly woman alert oriented no acute distress Abdomen soft minimally tender epigastric. Nondistended. Objective Labs Result Diagrams: 03/18/22 05:23 03/18/22 05:23 Labs: Laboratory Results - last 24 hr 03/18/22 03/18/22 05:23 05:23 WBC 11.1 H RBC 3.69 L Hgb 10.4 L Hct 31.6 L MCV 85.5 MCH 28.1 MCHC 32.8 RDW 14.6 Plt Count 314 Neut % (Auto) 72.1 Lymph % (Auto) 17.6 L [place] % (Auto) 8.3 Eos % (Auto) 1.6 L Baso % (Auto) 0.4 Neut # (Auto) 8000 H Lymph # (Auto) 2000 [place] # (Auto) 900 Eos # (Auto) 200 Baso # (Auto) 0 Sodium 138 Potassium 3.6 Chloride 100 Carbon Dioxide 32 BUN 10 Creatinine 0.74 Estimated GFR > 60 BUN/Creatinine Ratio 13.5 Glucose 111 H Calcium 8.5 Total Bilirubin 0.5 AST 37 H ALT 32 Alkaline Phosphatase 130 H Total Protein 6.1 L Albumin 2.8 L Globulin 3.3 Albumin/Globulin Ratio 0.8 L PFSH Surgical History H/O neck surgery H/O rotator cuff surgery History of colon resection History of hysterectomy Hx of cholecystectomy Status post hysterectomy Family History Mother Hypertension Diabetes mellitus Breast cancer Heart disease Father Heart disease Sister Breast cancer Social History (Updated 04/22/21 @ 09:24 by Yaa Yates RN) marital status: household members: spouse Previous occupational history: retired Smoking Status: Never smoker alcohol intake: current substance use type: does not use Assessment & Plan Assessment & Plan narrative: 81-year-old woman admitted with now resolved small bowel obstruction. Suspect ir epigastric pain is secondary to gastritis. Perhaps she had some degree of pancreatitis on admission given the elevated enzyme level however pancreas was radiographically normal on CT. I regardless enzymes have normalized. Advance to regular diet. Continue 40 Protonix b.i.d. and Carafate. Time Spent With Patient Critical Care time: I spent a total of [] minutes of critical care time on this patient's care today; this time is exclusive of procedural time. Quality VTE Deep Vein Thrombosis/Pulmonary Embolism Present on Admission: No
[2022-03-18] MEDS: ACETAMINOPHEN 325 MG TABLET 650 MG PO (17:16)
[2022-03-18] MEDS: hydrOXYzine pamoate 25 MG CAPSULE 50 MG PO (20:21)
[2022-03-19] VITALS (7 sets, daily range): BP systolic 147–187; BP diastolic 55–78; PULSE 69–89; RESP 17–18; TEMP 36.1–36.6; O2SAT 94–97
[2022-03-19] MEDS: SUCRALFATE 1 GM/10 ML ORAL SUSP PO ×2 (00:25→06:32)
[2022-03-19] MEDS: SODIUM CHLORIDE 0.9% 1,000 ML 70 ML IV (00:26)
[2022-03-19 06:04] LABS: Add Manual Diff / Slide Review NO; Basophils Absolute Auto 100 /uL (0-100); Basophils Percent Auto 1.2 % (0-2); Eosinophils Absolute Auto 100 /uL (0-450); Eosinophils Percent Auto 1.6 % (2-4); Hematocrit 31.8 % (36-46); Hemoglobin 10.5 g/dL (12.0-16.0); Lymphocytes Absolute Auto 2300 /uL (1100-4500); Lymphocytes Percent Auto 25.4 % (25-40); Mean Corpuscular HGB Conc 33.2 % (30-36); Mean Corpuscular Hemoglobin 28.4 PG (26-34); Mean Corpuscular Volume 85.7 fL (80-100); Monocytes Absolute Auto 800 /uL (0-900); Monocytes Percent Auto 9.1 % (3-14); Neutrophils Absolute Auto 5700 /uL (1500-7000); Neutrophils Percent Auto 62.7 % (50-75); Platelet Count 340 X10^3/uL (150-400); Red Blood Cell Count 3.71 X10^6/uL (4.0-5.2); Red Cell Distribution Width 14.8 % (11.6-14.8)
[2022-03-19 06:12] LABS: Alanine Aminotransferase 32 IU/L (<35); Albumin 2.9 g/dL (3.5-5.0); Albumin Globulin Ratio 0.9 (1.0-2.8); Alkaline Phosphatase 127 U/L (38-126); Aspartate Aminotransferase 32 IU/L (14-36); BUN Creatinine Ratio 16.7 (6-22); Bilirubin Total 0.4 mg/dL (0.2-1.3); Blood Urea Nitrogen 12 mg/dL (7-17); Calcium 8.5 mg/dL (8.4-10.2); Carbon Dioxide 31 mmol/L (22-32); Chloride 100 mmol/L (98-107); Estimated Glomerular Filt Rate > 60 mL/min (>60); Globulin 3.3 g/dL (1.7-4.1); Glucose 117 mg/dL (80-110); HEMOLYSIS < 15 (0-50); Potassium 3.8 mmol/L (3.4-5.1); Sodium 137 mmol/L (137-145); Total Protein 6.2 g/dL (6.3-8.2)
[2022-03-19] MEDS: ENOXAPARIN 40 MG/0.4 ML SYRINGE SUBCUT (08:55)
[2022-03-19] MEDS: ACYCLOVIR 400 MG TABLET PO (08:55)
[2022-03-19] MEDS: LOSARTAN 50 MG TABLET 100 MG PO (08:56)
[2022-03-19] MEDS: guaiFENesin ER 600 MG TAB PO (08:56)
[2022-03-19] MEDS: HYDROCODONE/ACET 5/325 TABLET 1 TAB PO (08:56)
[2022-03-19] MEDS: dilTIAZem CD 120 MG CAP PO (08:56)
[2022-03-19] MEDS: hydroCHLOROthiazide 25 MG TABLET 12.5 MG PO (08:57)
[2022-03-19] MEDS: CYANOCOBALAMIN (VITAMIN B-12) 100 MCG TABLET PO (08:57)
[2022-03-19] MEDS: PANTOPRAZOLE 40 MG VIAL IV (08:57)
[2022-03-19] MEDS: POTASSIUM CHLORIDE 20 MEQ TAB PO (08:57)
[2022-03-19] MEDS: ATORVASTATIN 20 MG TABLET 5 MG PO (08:57)
--- NOTE | 2022-03-19 09:39 | P.DS_ITS ---
History of Present Illness History of Present Illness Date Patient Seen: 03/19/22 Time Patient Seen: 09:39 Date of Onset of Symptoms: 03/15/22 Chief complaint: N/V/Abd pain Narrative: See dictation by Dr. Maldonado 03/12/2022 Discharge Providers Provider Date of admission: 03/12/22 10:03 Discharge Date: 03/19/22 Primary care physician: Dennis Collins MD Consults: 03/12/22 08:54 Consult to General Surgery Stat Comment: Consulting Provider: Brad Maldonado Reason for consultation: SBO Has provider been notified: Yes 03/13/22 13:52 Consult to Home Health Routine Comment: Reason For Exam: Home health upon DC 03/14/22 10:45 Consult to Physician Routine Comment: Consulting Provider: Liban Chan Reason for consultation: leukocytosis cough 03/15/22 10:56 Consult to Physical Therapy Evaluate & Treat Comment: Physician Instructions: Evaluate and Treat Discharge provider: Dennis Collins MD Summary Hospital Course Discharge Diagnosis: Abdominal pain Small-bowel obstruction Pancreatitis Dehydration Neutropenic leukocytosis Hypokalemia Anemia Hypertension Hyperlipidemia Chronic cough Hospital Course: Abdominal pain. Patient was initially admitted with small-bowel obstruction. Which resolved relatively quickly with the 1st 24 hours. Patient had initial elevation of her white count and her lipase. Lipase resolved relatively rapidly. White count slowly came down over time. After patient's small-bowel obstruction resolved was still having moderate primarily epiglottic pain. Certainly never had a significant abdominal surgical abdomen. After 2 days of not improving after small-bowel obstruction she had an EGD which showed gastritis. Patient was placed on high-dose PPI and Carafate and was improved. Able to eat. And feeling better. Still had epigastric pain but improving. White count resolved. And no other significant changes. Was felt to be a c ombination of initial small-bowel obstruction and gastritis. And will be followed as an outpatient. Small-bowel obstruction. Managed by the surgeon. Resolved relatively rapidly. Did have NG tube placed. Was removed in the 1st 24 hours. No other significant changes were noted. Patient did have slow return of bowel function but has slowly improved with that. Etiology is a little unclear but probably secondary to irritation from bowel. No evidence of infection was noted. Pancreatitis. Patient was noted on admission to have a significantly elevated lipase. Well she did have epigastric pain. CT scan showed no evidence of pancreas irritation and rapidly lipase resolved to normal and remained that way through the course of her admission. Was not felt to be a persistent problem with her abdominal pain. Dehydration. Patient initially presented with mild dehydration. She was hydrated over the 1st 42-72 hours until taking p.o. and then was discontinued. Neutropenic leukocytosis. Patient with resolution of her SBO but still continued to have a white count O2 was elevated. Cultures were obtained and found to be negative. CT scan did not show any pulmonary abnormality. She was given 1 dose of Rocephin during her admission on Wednesday and it was not continued but her white count continued to improve. It was felt to be a combination of stress reaction and reaction to her small-bowel obstruction. Resolved at this point. And will be followed as an outpatient. Hypokalemia. Replace during admission and seems to be stable at this time. Will be rechecked outpatient. Anemia. Pretty significant drop in hematocrit. But rebounded. [place] to be delusional. But will be followed no evidence of bleeding was noted during her whole admission. Hypertension. Patient initially actually was doing quite well. She did have an elevation towards the last 2 days of her admission but she is been stable as an outpatient I will follow as an outpatient she is been very stable under my care for the last 2 or 3 years on her current dose and I suspect this will resolve and become more normalized but if not able just as an outpatient. Hyperlipidemia. Stable. Chronic cough. Patient was initially with an increase in her cough. Which was causing a lot of abdominal pain. But has no other significant change. Patient had hydrocodone added to try to curb this was not completely successful and guaifenesin was added. Will continue her usual meds at home seems to be doing well. She will follow call me if change. Exam Vital Signs (past 8 hours): - 03/19/22 03:00 03/19/22 08:00 03/19/22 08:56 Temperature 97.3 F L Pulse Rate 69 69 Respiratory Rate 18 Blood Pressure 147/55 H 187/78 H Pulse Oximetry 94 97 Oxygen Delivery Method Room Air Oxygen Flow Rate 0 0 Oxygen Delivery Method Room Air Oxygen Flow Rate 0 Narrative Exam Narrative: Alert elderly female much less fatigued in appearance. Lungs are clear heart regular rate and rhythm abdomen is slightly less distended. Shows slight epigastric tenderness which is much improved. No other diffuse tenderness which had been present previously positive bowel sounds. Extremities are normal. Objective Labs Result Diagrams: 03/19/22 05:39 03/19/22 05:39 Labs: Laboratory Results - last 24 hr 03/19/22 03/19/22 05:39 05:39 WBC 9.0 RBC 3.71 L Hgb 10.5 L Hct 31.8 L MCV 85.7 MCH 28.4 MCHC 33.2 RDW 14.8 Plt Count 340 Neut % (Auto) 62.7 Lymph % (Auto) 25.4 [place] % (Auto) 9.1 Eos % (Auto) 1.6 L Baso % (Auto) 1.2 Neut # (Auto) 5700 Lymph # (Auto) 2300 [place] # (Auto) 800 Eos # (Auto) 100 Baso # (Auto) 100 Sodium 137 Potassium 3.8 Chloride 100 Carbon Dioxide 31 BUN 12 Creatinine 0.72 Estimated GFR > 60 BUN/Creatinine Ratio 16.7 Glucose 117 H Calcium 8.5 Total Bilirubin 0.4 AST 32 ALT 32 Alkaline Phosphatase 127 H Total Protein 6.2 L Albumin 2.9 L Globulin 3.3 Albumin/Globulin Ratio 0.9 L PFSH Surgical History H/O neck surgery H/O rotator cuff surgery History of colon resection History of hysterectomy Hx of cholecystectomy Status post hysterectomy Family History Mother Hypertension Diabetes mellitus Breast cancer Heart disease Father Heart disease Sister Breast cancer Social History (Updated 04/22/21 @ 09:24 by Yaa Yates RN) marital status: household members: spouse Previous occupational history: retired Smoking Status: Never smoker alcohol intake: current substance use type: does not use Discharge Assessment & Plan Assessment and Plan Assessment: Improved Plan of Treatment: Discharge home Discharge Plan Discharge Plan Patient Disposition: Home Discharge orders & Medications Prescriptions: New pantoprazole [Protonix] 40 mg tablet,delayed release (DR/EC) 40 mg PO Q12H Qty: 60 3RF sucralfate 100 mg/mL Suspension 1 gm PO Q6HR Qty: 120 1RF Continued omeprazole 20 mg capsule,delayed release(DR/EC) 20 mg PO BID losartan-hydrochlorothiazide 100-12.5 mg tablet 1 tab PO DAILY diltiazem HCl 120 mg capsule,extended release 24hr 120 mg PO DAILY acyclovir 400 mg tablet 400 mg PO DAILY multivitamin Tablet 1 tab PO DAILY cyanocobalamin (vitamin B-12) 1 tab PO DAILY vitamin A-vitamin C-vit E-min Tablet 1 tab PO DAILY magnesium 1 tab PO DAILY hydrocodone-acetaminophen 5-325 mg tablet 1 tab PO DAILY potassium chloride 10 mEq tablet extended release 10 meq PO DAILY rosuvastatin 5 mg tablet 2.5 mg PO DAILY hydroxyzine HCl 50 mg tablet 50 mg PO DAILY Medication counseling provided by Pharmacist: Yes Follow up/Referrals: Dennis Collins MD [Primary Care Provider] - 03/23/22 (please call for appointment) Discharge Health Status Multidrug resistant organism: No MDRO Diet/Activity/Treatments Diet: Diet as Tolerated Diet comment: slow increase from current diet to regular as tolerated Skin/Wound/Dressing Care Report to your healthcare provider any signs of infection, such as:: increased pain Visit Report/Discharge Packet Instructions: DI for Small Bowel Obstruction, DI for Upper GI Endoscopy, DI for Gastritis, DI for Stomach Polyps Stand Alone Forms: EGD Result: [place] Surg Discharge Data Primary Care Provider: Dennis Collins Quality VTE Deep Vein Thrombosis/Pulmonary Embolism Present on Admission: No
== END 2022-03-19 12:20 | disposition home health service (06) | DRG 388 ==
LOC: ED 09:09 → AC 10:17
PROVIDERS: Emergency Medicine; Family Medicine; Admitting Provider Surgery; Emergency Provider Emergency Medicine; Family Provider Family Medicine; PCP Family Medicine; Referring Provider Emergency Medicine; Visit Provider Family Medicine
PROC: 0DJ08ZZ Inspection of Upper Intestinal Tract, Via Natural or Artificial Opening Endoscopic (ICD-10-PCS; CPT 43235; principal; 2022-03-17 15:00)
DX: K56.609 Unspecified intestinal obstruction, unspecified as to partial versus complete obstruction (principal); K85.90 Acute pancreatitis without necrosis or infection, unspecified; E87.20 Acidosis, unspecified; D72.828 Other elevated white blood cell count; K29.70 Gastritis, unspecified, without bleeding; R39.198 Other difficulties with micturition; E78.5 Hyperlipidemia, unspecified; I10 Essential (primary) hypertension; R05.3 Chronic cough; E87.6 Hypokalemia; E86.0 Dehydration; Z20.822 Contact with and (suspected) exposure to COVID-19
CPT/HCPCS: 0241U; 36415; 43239; 71046; 71275; 74018; 74019; 74022; 74177; 80048; 80053; 81001; 81003; 81015; 83605; 83690; 83735; 84100; 84132; 85025; 87040; 87086; 87150; 87635; 96374; 96375; 96376; 97161; 97530; 99221; 99231; 99232; 99284; 99285; C9803; C9113; J0696; J1170; J1650; J2405; J3475; Q9967

== ENCOUNTER → 2022-03-23 10:25 | Outpatient (CLI) | payer OTHER, SELFPAY ==
[2022-03-12 13:34] VITALS: BMI 24.2
[2022-03-23 11:40] LABS: Add Manual Diff / Slide Review NO; Basophils Absolute Auto 0 /uL (0-100); Basophils Percent Auto 0.4 % (0-2); Eosinophils Absolute Auto 0 /uL (0-450); Eosinophils Percent Auto 0.3 % (2-4); Hematocrit 39.2 % (36-46); Hemoglobin 13.1 g/dL (12.0-16.0); Lymphocytes Absolute Auto 2700 /uL (1100-4500); Lymphocytes Percent Auto 22.3 % (25-40); Mean Corpuscular HGB Conc 33.5 % (30-36); Mean Corpuscular Hemoglobin 28.6 PG (26-34); Mean Corpuscular Volume 85.4 fL (80-100); Monocytes Absolute Auto 800 /uL (0-900); Monocytes Percent Auto 6.3 % (3-14); Neutrophils Absolute Auto 8500 /uL (1500-7000); Neutrophils Percent Auto 70.7 % (50-75); Platelet Count 677 X10^3/uL (150-400); Red Blood Cell Count 4.58 X10^6/uL (4.0-5.2); Red Cell Distribution Width 14.8 % (11.6-14.8); White Blood Cell Count 12.1 X10^3/uL (4.5-11.0)
[2022-03-23 11:55] LABS: Erythrocyte Sedimentation Rate 40 MM/HR (0-20)
[2022-03-23 12:14] LABS: Alanine Aminotransferase 29 IU/L (<35); Albumin 3.9 g/dL (3.5-5.0); Albumin Globulin Ratio 1.2 (1.0-2.8); Alkaline Phosphatase 125 U/L (38-126); Aspartate Aminotransferase 27 IU/L (14-36); BUN Creatinine Ratio 21.6 (6-22); Bilirubin Total 0.4 mg/dL (0.2-1.3); Blood Urea Nitrogen 21 mg/dL (7-17); Calcium 9.6 mg/dL (8.4-10.2); Carbon Dioxide 28 mmol/L (22-32); Chloride 95 mmol/L (98-107); Estimated Glomerular Filt Rate 58 mL/min (>60); Globulin 3.2 g/dL (1.7-4.1); Glucose 127 mg/dL (80-110); Lipase 627 U/L (23-300); Potassium 3.9 mmol/L (3.4-5.1); Sodium 134 mmol/L (137-145); Total Protein 7.1 g/dL (6.3-8.2)
[2022-03-23 16:55] LABS: C-Reactive Protein Quant 1.8 mg/dL (<1.0); HEMOLYSIS 21 (0-50)
== END ==
PROVIDERS: Family Provider Family Medicine; PCP Family Medicine; Referring Provider Family Medicine; Visit Provider Family Medicine
DX: R10.9 Unspecified abdominal pain (principal)
CPT/HCPCS: 36415; 80053; 83690; 85025; 85651; 86140

== ENCOUNTER → 2022-03-25 12:27 | Outpatient (CLI) | payer OTHER, SELFPAY ==
[2022-03-12 13:34] VITALS: BMI 24.2
--- NOTE | 2022-03-25 | DI.CT.S_ITS ---
PROCEDURE: CT ABDOMEN PELVIS W CON INDICATIONS: Unspecified abdominal pain TECHNIQUE: After the administration of oral and intravenous contrast, axial sections were acquired from the lung bases to the pubic symphysis. Coronal and sagittal reformats were performed. For radiation dose reduction, the following was used: automated exposure control, adjustment of mA and/or kV according to patient size. COMPARISON:[facility], CR, XR ACUTE ABDOMEN SERIES, 03/16/2022, 8:40. [facility], CT, CT ABDOMEN PELVIS W CON, 03/12/2022, 7:30. FINDINGS: Image quality: Excellent. Lung bases: Unremarkable. Heart: No significant findings. ABDOMEN: Liver: Unremarkable. Gallbladder: Surgically absent. Biliary ducts: Unremarkable. Pancreas: Pancreas demonstrates normal size and overall enhancement. Trace fluid is noted near the inferior margins of the uncinate process. The extent of peripancreatic fluid has decreased when compared with the study dated March 12, 2022. Spleen: Unremarkable. Adrenal Glands: Unremarkable. Kidneys and Ureters: Unremarkable. Stomach and Bowel: The stomach is partially decompressed and filled with contrast and gas. Collapsed gastric rugae versus a soft tissue mass is noted along the medial aspect of the gastric cardia (series 2/image 18). Duodenal diverticulum is redemonstrated. Small bowel is contrast filled and decompressed. There are scattered sigmoid diverticula. No evidence for diverticulitis. A small appendiceal stump is thin walled and gas-filled. Peritoneum: No abnormal intraperitoneal fluid. No free air. Ventral Wall: No hernia. Abdominal Nodes: No retroperitoneal or mesenteric adenopathy by size criteria. Vessels: Aorta and inferior vena cava are normal in size. PELVIS: Pelvic Organs: Unremarkable. Bladder: Unremarkable. Pelvic Nodes: No enlarged lymph nodes. Miscellaneous: No inguinal hernias are seen. Bones: Unremarkable. IMPRESSION: 1. Decompression of the previously visualized bowel obstruction when compared with the study dated March 12, 2022. 2. Questionable gastric mass versus collapsed gastric rugae within the gastric cardia. Direct visualization could be used to further characterize this finding and exclude mass. 3. Trace peripancreatic fluid which is likely postinflammatory in nature. Differential considerations would could include pancreatitis. Correlation with lipase values is recommended. 4. No acute intra-abdominal findings. Diverticulosis. No acute diverticulitis. Dictated by: Yvonne Spencer M.D. on 03/25/2022 at 15:59 Approved by: Yvonne Spencer M.D. on 03/25/2022 at 16:10
== END ==
PROVIDERS: Family Provider Family Medicine; PCP Family Medicine; Referring Provider Family Medicine; Visit Provider Family Medicine
DX: K57.30 Diverticulosis of large intestine without perforation or abscess without bleeding (principal); K57.10 Diverticulosis of small intestine without perforation or abscess without bleeding; R10.9 Unspecified abdominal pain; Z90.49 Acquired absence of other specified parts of digestive tract
CPT/HCPCS: 74177; Q9967

== ENCOUNTER → 2022-04-07 12:49 | Outpatient (CLI) | payer OTHER, SELFPAY ==
[2022-03-12 13:34] VITALS: BMI 24.2
[2022-04-07 14:32] LABS: Add Manual Diff / Slide Review NO; Basophils Absolute Auto 0 /uL (0-100); Basophils Percent Auto 0.6 % (0-2); Eosinophils Absolute Auto 100 /uL (0-450); Eosinophils Percent Auto 0.8 % (2-4); Hematocrit 37.1 % (36-46); Lymphocytes Absolute Auto 2700 /uL (1100-4500); Lymphocytes Percent Auto 38.7 % (25-40); Mean Corpuscular HGB Conc 32.4 % (30-36); Mean Corpuscular Hemoglobin 28.3 PG (26-34); Mean Corpuscular Volume 87.5 fL (80-100); Monocytes Absolute Auto 600 /uL (0-900); Monocytes Percent Auto 8.6 % (3-14); Neutrophils Absolute Auto 3600 /uL (1500-7000); Neutrophils Percent Auto 51.3 % (50-75); Platelet Count 303 X10^3/uL (150-400); Red Blood Cell Count 4.24 X10^6/uL (4.0-5.2)
[2022-04-07 14:50] LABS: Alanine Aminotransferase 19 IU/L (<35); Albumin 3.7 g/dL (3.5-5.0); Albumin Globulin Ratio 1.3 (1.0-2.8); Alkaline Phosphatase 81 U/L (38-126); Aspartate Aminotransferase 23 IU/L (14-36); BUN Creatinine Ratio 18.4 (6-22); Bilirubin Total 0.5 mg/dL (0.2-1.3); Blood Urea Nitrogen 16 mg/dL (7-17); Carbon Dioxide 33 mmol/L (22-32); Chloride 96 mmol/L (98-107); Estimated Glomerular Filt Rate > 60 mL/min (>60); Globulin 2.9 g/dL (1.7-4.1); Glucose 120 mg/dL (80-110); HEMOLYSIS < 15 (0-50); Lipase 221 U/L (23-300); Potassium 3.3 mmol/L (3.4-5.1); Sodium 137 mmol/L (137-145); Total Protein 6.6 g/dL (6.3-8.2)
== END ==
PROVIDERS: Family Provider Family Medicine; PCP Family Medicine; Referring Provider Family Medicine; Visit Provider Family Medicine
DX: R10.9 Unspecified abdominal pain (principal); K85.90 Acute pancreatitis without necrosis or infection, unspecified
CPT/HCPCS: 36415; 80053; 83690; 85025

== ENCOUNTER → 2022-06-25 16:57 | Outpatient (CLI) | payer OTHER, SELFPAY ==
[2022-03-12 13:34] VITALS: BMI 24.2
[2022-06-25 17:28] LABS: BUN Creatinine Ratio 19.6 (6-22); Blood Urea Nitrogen 18 mg/dL (7-17); Calcium 9.2 mg/dL (8.4-10.2); Carbon Dioxide 33 mmol/L (22-32); Chloride 98 mmol/L (98-107); Estimated Glomerular Filt Rate > 60 mL/min (>60); Glucose 124 mg/dL (80-110); HEMOLYSIS < 15 (0-50); Potassium 3.8 mmol/L (3.4-5.1); Sodium 138 mmol/L (137-145)
[2022-06-25 17:31] LABS: Hemoglobin A1C% w Est Avg Glu 6.2 % (4.0-6.0)
== END ==
PROVIDERS: Family Provider Family Medicine; PCP Family Medicine; Referring Provider Family Medicine; Visit Provider Family Medicine
DX: R73.03 Prediabetes (principal); N18.31 Chronic kidney disease, stage 3a; I12.9 Hypertensive chronic kidney disease with stage 1 through stage 4 chronic kidney disease, or unspecified chronic kidney disease
CPT/HCPCS: 36415; 80048; 83036

== ENCOUNTER → 2022-10-19 07:24 | Outpatient (CLI) | payer OTHER, SELFPAY ==
[2022-03-12 13:34] VITALS: BMI 24.2
[2022-10-19 08:25] LABS: Cholesterol 146 mg/dL (140-199); HDL Cholesterol 49 mg/dL (40-60); LDL Cholesterol Calculated 64 mg/dL (<100); Triglycerides 164 mg/dL (35-150)
== END ==
PROVIDERS: Family Provider Family Medicine; PCP Family Medicine; Referring Provider Internal Medicine Cardiovascular Disease; Visit Provider Internal Medicine Cardiovascular Disease
DX: E78.5 Hyperlipidemia, unspecified (principal)
CPT/HCPCS: 36415; 80061

== ENCOUNTER → 2022-12-16 10:55 | Outpatient (ROUT) | payer OTHER, SELFPAY ==
[2022-03-12 13:34] VITALS: BMI 24.2
[2022-12-16 12:33] LABS: Influenza A - CEPHEID Flu A NEGATIVE (NEGATIVE); Influenza B - CEPHEID Flu B NEGATIVE (NEGATIVE); Respiratory Syncytial Virus Negative (Negative)
[2022-12-16 12:47] LABS: COVID-19 CEPHEID 4-PLEX PCR Negative (Negative)
== END ==
PROVIDERS: Family Provider Family Medicine; PCP Family Medicine; Visit Provider Internal Medicine
DX: R05.9 Cough, unspecified (principal)
CPT/HCPCS: 0241U

== ENCOUNTER → 2022-12-16 11:03 | Outpatient (CLI) | payer OTHER, SELFPAY ==
[2022-03-12 13:34] VITALS: BMI 24.2
--- NOTE | 2022-12-16 | DI.RAD.S_ITS ---
PROCEDURE: XR CHEST 2V INDICATIONS: Acute cough TECHNIQUE: 2 views of the chest were acquired. COMPARISON: [facility], CR, XR CHEST 2V, 03/14/2022, 10:48. FINDINGS: Surgical changes and devices: None. Lungs and pleura: Lungs are clear. No pleural effusions or pneumothorax. Mediastinum: Mediastinal contours are normal. Heart size is normal. Bones and chest wall: No suspicious bony abnormalities. Soft tissues appear unremarkable. IMPRESSION: No acute cardiopulmonary pathology. Dictated by: Oscar Horne M.D. on 12/16/2022 at 12:32 Approved by: Oscar Horne M.D. on 12/16/2022 at 12:32
== END ==
PROVIDERS: Family Provider Family Medicine; PCP Family Medicine; Referring Provider Internal Medicine; Visit Provider Internal Medicine
DX: R05.1 Acute cough (principal)
CPT/HCPCS: 0241U; 71046

== ENCOUNTER → 2023-01-07 15:12 | Outpatient (CLI) | payer OTHER, SELFPAY ==
[2022-03-12 13:34] VITALS: BMI 24.2
== END ==
PROVIDERS: Family Provider Family Medicine; PCP Family Medicine; Referring Provider Internal Medicine Pulmonary Disease; Visit Provider Internal Medicine Pulmonary Disease
DX: J45.30 Mild persistent asthma, uncomplicated (principal)
CPT/HCPCS: 94010; 94729

== ENCOUNTER → 2023-01-14 11:51 | Outpatient (CLI) | payer OTHER, SELFPAY ==
[2022-03-12 13:34] VITALS: BMI 24.2
[2023-01-14 13:10] LABS: Add Manual Diff / Slide Review NO; Basophils Absolute Auto 0 /uL (0-100); Basophils Percent Auto 0.3 % (0-2); Eosinophils Absolute Auto 100 /uL (0-450); Eosinophils Percent Auto 1.1 % (2-4); Hematocrit 36.5 % (36-46); Hemoglobin 12.2 g/dL (12.0-16.0); Lymphocytes Absolute Auto 2200 /uL (1100-4500); Lymphocytes Percent Auto 33.4 % (25-40); Mean Corpuscular HGB Conc 33.5 % (30-36); Mean Corpuscular Hemoglobin 29.5 PG (26-34); Mean Corpuscular Volume 88.1 fL (80-100); Monocytes Absolute Auto 600 /uL (0-900); Monocytes Percent Auto 8.5 % (3-14); Neutrophils Absolute Auto 3700 /uL (1500-7000); Neutrophils Percent Auto 56.7 % (50-75); Platelet Count 330 X10^3/uL (150-400); Red Blood Cell Count 4.14 X10^6/uL (4.0-5.2); Red Cell Distribution Width 14.9 % (11.6-14.8); White Blood Cell Count 6.6 X10^3/uL (4.5-11.0)
[2023-01-14 14:07] LABS: Alanine Aminotransferase 18 IU/L (<35); Albumin 3.8 g/dL (3.5-5.0); Albumin Globulin Ratio 1.4 (1.0-2.8); Alkaline Phosphatase 84 U/L (38-126); Aspartate Aminotransferase 22 IU/L (14-36); BUN Creatinine Ratio 20.8 (6-22); Bilirubin Total 0.3 mg/dL (0.2-1.3); Blood Urea Nitrogen 20 mg/dL (7-17); Calcium 9.7 mg/dL (8.4-10.2); Carbon Dioxide 30 mmol/L (22-32); Chloride 101 mmol/L (98-107); Estimated Glomerular Filt Rate 58 mL/min (>60); Globulin 2.7 g/dL (1.7-4.1); Glucose 105 mg/dL (80-110); HEMOLYSIS < 15 (0-50); Potassium 4.1 mmol/L (3.4-5.1); Sodium 138 mmol/L (137-145); Total Protein 6.5 g/dL (6.3-8.2)
[2023-01-14 14:25] LABS: TSH w/ Reflex to FT4 0.57 uIU/mL (0.47-4.68)
[2023-01-14 14:49] LABS: Vitamin B12 553 pg/mL (239-931)
[2023-01-14 15:30] LABS: Vitamin D 25 Hydroxy (D3) 36.4 ng/mL (30.0-100.0)
== END ==
PROVIDERS: Family Provider Family Medicine; PCP Family Medicine; Referring Provider Family Medicine; Visit Provider Family Medicine
DX: R53.82 Chronic fatigue, unspecified (principal)
CPT/HCPCS: 36415; 80053; 82306; 82607; 84443; 85025

== ENCOUNTER 2023-01-22 16:31 | Emergency (ER) | payer OTHER, SELFPAY ==
[2022-03-12 13:34] VITALS: BMI 24.2
[2023-01-22] VITALS (19 sets, daily range): BP systolic 139–155; BP diastolic 60–70; PULSE 61–71; RESP 15–29; TEMP 36.6–36.9; O2SAT 93–97; BMI 24.1
--- NOTE | 2023-01-22 16:36 | DI.RAD.S_ITS ---
PROCEDURE: XR CHEST 1V INDICATIONS: chest pain TECHNIQUE: One view of the chest was acquired. COMPARISON: [facility], CR, XR CHEST 2V, 12/16/2022, 11:07. FINDINGS: Surgical changes and devices: None. Lungs and pleura: Lungs are clear. No pleural effusions or pneumothorax. Mediastinum: Mediastinal contours appear normal. Heart size is normal. Bones and chest wall: No suspicious bony lesions. Overlying soft tissues appear unremarkable. IMPRESSION: No acute cardiopulmonary pathology. Dictated by: Oscar Horne M.D. on 01/22/2023 at 17:07 Approved by: Oscar Horne M.D. on 01/22/2023 at 17:07
[2023-01-22 17:01] LABS: Add Manual Diff / Slide Review NO; Basophils Absolute Auto 100 /uL (0-100); Basophils Percent Auto 1.7 % (0-2); Eosinophils Absolute Auto 100 /uL (0-450); Eosinophils Percent Auto 0.7 % (2-4); Hematocrit 36.1 % (36-46); Hemoglobin 12.1 g/dL (12.0-16.0); Lymphocytes Absolute Auto 3100 /uL (1100-4500); Mean Corpuscular HGB Conc 33.7 % (30-36); Mean Corpuscular Hemoglobin 29.7 PG (26-34); Mean Corpuscular Volume 88.1 fL (80-100); Monocytes Absolute Auto 800 /uL (0-900); Neutrophils Absolute Auto 4200 /uL (1500-7000); Neutrophils Percent Auto 50.6 % (50-75); Platelet Count 296 X10^3/uL (150-400); Red Blood Cell Count 4.09 X10^6/uL (4.0-5.2); Red Cell Distribution Width 15.1 % (11.6-14.8); White Blood Cell Count 8.3 X10^3/uL (4.5-11.0)
[2023-01-22 17:08] LABS: Alanine Aminotransferase 16 IU/L (<35); Albumin 3.7 g/dL (3.5-5.0); Albumin Globulin Ratio 1.2 (1.0-2.8); Alkaline Phosphatase 86 U/L (38-126); Aspartate Aminotransferase 25 IU/L (14-36); BUN Creatinine Ratio 22.5 (6-22); Bilirubin Total 0.4 mg/dL (0.2-1.3); Blood Urea Nitrogen 23 mg/dL (7-17); Calcium 9.4 mg/dL (8.4-10.2); Carbon Dioxide 33 mmol/L (22-32); Chloride 101 mmol/L (98-107); Creatine Kinase 45 U/L (30-135); Estimated Glomerular Filt Rate 54 mL/min (>60); Globulin 3.1 g/dL (1.7-4.1); Glucose 108 mg/dL (80-110); HEMOLYSIS 36 (0-50); Lipase 105 U/L (23-300); Magnesium 1.9 mg/dL (1.6-2.3); Potassium 3.8 mmol/L (3.4-5.1); Sodium 138 mmol/L (137-145); Total Protein 6.8 g/dL (6.3-8.2)
[2023-01-22 17:19] LABS: Troponin I < 0.012 ng/mL (0.01-0.034)
--- NOTE | 2023-01-22 17:23 | PC.NURSE ---
Pt states she she's been a patient of Dr. Salazar for a very long time.
[2023-01-22 17:40] LABS: Prothrombin Time 11.1 SECONDS (10.1-12.7)
[2023-01-22 17:42] LABS: PTT Partial Thromboplastin Tim 28 SECONDS (26-36)
--- NOTE | 2023-01-22 19:09 | ED_ITS ---
HPI - Chest Pain General Chief Complaint: Chest Pain Stated Complaint: Chest pain Time Seen by Provider: 01/22/23 17:54 Mode of arrival: Family Vehicle History of Present Illness HPI narrative: Patient is an 82-year-old female history of hypertension, hyperlipidemia, chronic cough presenting today with chest discomfort. She reports that she woke up this morning at 6:00 a.m. with burning in her chest. It has been there constantly throughout the day it has not moved. She reports some spikes that last for a brief 2nd. She reports that it feels like burning like acid reflux however she says she does not get acid reflux very much. There is no radiation of pain does not go to her back her arms or her jaw. It has not really subsided. She is no prior history of coronary artery disease. She has had a chronic cough which she thinks has gotten a little bit worse over last 5 weeks. She has an appointment with her primary care in about 1 week. She denies any significant shortness of breath. No nausea no vomiting no abdominal pain. It appears that she was admitted in February 2022 for a small-bowel obstruction after cholecystectomy. Related Data Home Medications Medication Instructions Recorded Confirmed acyclovir 400 mg tablet 400 mg PO DAILY 04/22/21 03/12/22 cyanocobalamin (vitamin B-12) 1 tab PO DAILY 04/22/21 03/12/22 diltiazem HCl 120 mg 120 mg PO DAILY 04/22/21 03/12/22 capsule,extended release 24 hr hydrocodone 5 mg-acetaminophen 325 1 tab PO DAILY 04/22/21 03/12/22 mg tablet hydroxyzine HCl 50 mg tablet 50 mg PO DAILY 04/22/21 03/12/22 losartan 100 1 tab PO DAILY 04/22/21 03/12/22 mg-hydrochlorothiazide 12.5 mg tablet magnesium 1 tab PO DAILY 04/22/21 03/12/22 multivitamin 1 tab PO DAILY 04/22/21 03/12/22 omeprazole 20 mg capsule,delayed 20 mg PO BID 04/22/21 03/12/22 release potassium chloride 10 mEq 10 meq PO DAILY 04/22/21 03/12/22 tablet,extended release rosuvastatin 5 mg tablet 2.5 mg PO DAILY 04/22/21 03/12/22 vitamin A-vitamin C-vit E-min 1 tab PO DAILY 04/22/21 03/12/22 tablet Previous Rx's Medication Instructions Recorded pantoprazole 40 mg tablet,delayed 40 mg PO Q12H #60 tabs 03/19/22 release (Protonix) sucralfate 100 mg/mL oral 1 gm PO Q6HR #120 mL 03/19/22 suspension Allergies Allergy/AdvReac Type Severity Reaction Status Date / Time No Known Drug Allergies Allergy Verified 01/22/23 16:39 Review of Systems Review of Systems ROS Unobtainable: All systems reviewed & are unremarkable except as noted in HPI and below Patient History Surgical History Hx of cholecystectomy History of colon resection H/O neck surgery H/O rotator cuff surgery History of hysterectomy Status post hysterectomy Family History Mother Hypertension Diabetes mellitus Breast cancer Heart disease Father Heart disease Sister Breast cancer Social History marital status: household members: spouse Previous occupational history: retired Smoking Status: Never smoker alcohol intake: current substance use type: does not use Smoking Status: Never smoker alcohol intake frequency: holidays/special occasions only Substance Use Type: does not use Exam Initial Vital Signs Initial Vital Signs: Vital Signs Temperature 98.5 F 01/22/23 16:36 Pulse Rate 71 01/22/23 16:36 Respiratory Rate 22 01/22/23 16:36 Blood Pressure 145/63 H 01/22/23 16:36 Pulse Oximetry 95 01/22/23 16:36 Oxygen Delivery Method Room Air 01/22/23 16:36 GENERAL: Alert well-appearing 82-year-old female and in no acute distress. HEENT: Head atraumatic,EOMI, pupils reactive, face symmetric, moist mucous membranes CARDIOVASCULAR: Regular rate and rhythm without murmurs, rubs or gallops. RESPIRATORY: Breath sounds equal bilaterally, no wheezes rales or rhonchi. ABDOMEN: Soft, nontender. Normoactive bowel sounds all 4 quadrants. No guarding or rebound. EXTREMITIES: Normal range of motion, no clubbing or edema. Neurovascularly intact NEUROLOGICAL: Alert and oriented x4. SKIN: Warm, dry, no laceration, no petechiae, no rashes or lesions. Scores HEART Score Heart Score history: Slightly Suspicious Heart Score EKG: Normal Heart Score Age: > or = 65 years old Heart Score risk factors: 1-2 risk factors Heart Score troponin: < or = to normal limit Heart Score Total: 3 Course Orders Ordered: ED Orders 01/22/23 18:49 Trop I [Troponin I] Stat Discontinued Medications Aspirin (Aspirin 81 Mg Chew Tab) 324 mg PO NOW ONE Stop: 01/22/23 16:37 Last Admin: 01/22/23 17:48 Dose: Not Given Documented By: AGUSTIN Pantoprazole Sodium (Pantoprazole 40 Mg Vial) 40 mg IV NOW ONE Stop: 01/22/23 20:08 Last Admin: 01/22/23 20:32 Dose: 40 mg Documented By: ULISES Vital Signs Vital signs: Vital Signs - 8 hr 01/22/23 19:30 01/22/23 19:45 01/22/23 20:00 Temperature Pulse Rate 63 65 61 Respiratory Rate 20 28 H 22 Blood Pressure Pulse Oximetry 96 96 95 Oxygen Delivery Method Room Air 01/22/23 20:15 01/22/23 20:30 01/22/23 20:44 Temperature 98 F Pulse Rate 66 66 63 Respiratory Rate 26 H 24 16 Blood Pressure 153/67 H Pulse Oximetry 95 96 Oxygen Delivery Method Room Air MDM - Chest Pain Lab Data 01/22/23 16:45 01/22/23 16:45 Labs: Lab Results 01/22/23 01/22/23 Range/Units 16:45 18:49 WBC 8.3 (4.5-11.0) X10^3/uL RBC 4.09 (4.0-5.2) X10^6/uL Hgb 12.1 (12.0-16.0) g/dL Hct 36.1 (36-46) % MCV 88.1 (80-100) fL MCH 29.7 (26-34) PG MCHC 33.7 (30-36) % RDW 15.1 H (11.6-14.8) % Plt Count 296 (150-400) X10^3/uL Neut % (Auto) 50.6 (50-75) % Lymph % (Auto) 37.0 (25-40) % [place] % (Auto) 10.0 (3-14) % Eos % (Auto) 0.7 L (2-4) % Baso % (Auto) 1.7 (0-2) % Neut # (Auto) 4200 (8758-6428) /uL Lymph # (Auto) 3100 (9243-7144) /uL [place] # (Auto) 800 (0-900) /uL Eos # (Auto) 100 (0-450) /uL Baso # (Auto) 100 (0-100) /uL PT 11.1 (10.1-12.7) SECONDS INR 1.0 (0.9-1.3) APTT 28 (26-36) SECONDS Sodium 138 (137-145) mmol/L Potassium 3.8 (3.4-5.1) mmol/L Chloride 101 (98-107) mmol/L Carbon Dioxide 33 H (22-32) mmol/L BUN 23 H (7-17) mg/dL Creatinine 1.02 (0.52-1.04) mg/dL Estimated GFR 54 L (>60) mL/min BUN/Creatinine Ratio 22.5 H (6-22) Glucose 108 (80-110) mg/dL Calcium 9.4 (8.4-10.2) mg/dL Magnesium 1.9 (1.6-2.3) mg/dL Total Bilirubin 0.4 (0.2-1.3) mg/dL AST 25 (14-36) IU/L ALT 16 (<35) IU/L Alkaline Phosphatase 86 (38-126) U/L Total Creatine Kinase 45 (30-135) U/L Troponin I < 0.012 < 0.012 (0.01-0.034) ng/mL Total Protein 6.8 (6.3-8.2) g/dL Albumin 3.7 (3.5-5.0) g/dL Globulin 3.1 (1.7-4.1) g/dL Albumin/Globulin Ratio 1.2 (1.0-2.8) Lipase 105 (23-300) U/L Imaging Data Chest x-ray: Radiologist's Impression: PROCEDURE: XR CHEST 1V INDICATIONS: chest pain TECHNIQUE: One view of the chest was acquired. COMPARISON: [facility], CR, XR CHEST 2V, 12/16/2022, 11:07. FINDINGS: Surgical changes and devices: None. Lungs and pleura: Lungs are clear. No pleural effusions or pneumothorax. Mediastinum: Mediastinal contours appear normal. Heart size is normal. Bones and chest wall: No suspicious bony lesions. Overlying soft tissues appear unremarkable. IMPRESSION: No acute cardiopulmonary pathology. Dictated by: Oscar Horne M.D. on 01/22/2023 at 17:07 ECG Data Interpretation: Normal sinus rhythm rate 69 MT interval 184 QRS [address] changes no T- wave inversions MDM Narrative Medical decision making narrative: Patient 82-year-old female who presents today with chest discomfort that woke her from her sleep at 6:00 a.m.. It has been constant throughout the day today without any sort of radiation she describes it as a burning sensation. She is no known cardiac disease she has a HEART score of 3. She is 2- troponins. She is given a dose of Protonix it appears that she is on omeprazole and Protonix. At time recommend outpatient cardiac workup but no need to stay in hospital. Discussed with her and family signs and symptoms and when to return to the ED. She has an appointment with her PCP in about 1 week. Discharge Plan Departure Patient Disposition: Home Clinical Impression: Atypical chest pain GERD (gastroesophageal reflux disease) Qualifiers: Esophagitis presence: esophagitis presence not specified Qualified Code(s): K 21.9 - Gastro-esophageal reflux disease without esophagitis Instructions: DI for Gastroesophageal Reflux Disease (GERD), DI for Atypical Chest Pain Activity Restrictions/Additional Instructions: *You have been diagnosed with atypical chest pain, acid reflux *What to do: At this time I do recommend following up your primary care provider you require further testing such as cardiac stress test and or echocardiogram. I do recommend continuing to take pantoprazole or omeprazole to see if it helps with your symptoms. If you should have worsening or changing chest pain please return to ED at any time *Continue to take medications as directed *Follow up with your primary care provider in 2-3 days or call [phone] *Return to ER if you should have increasing chest pain shortness of breath palpitations or any new, worsening or concerning symptoms Prescriptions: No Action omeprazole 20 mg capsule,delayed release(DR/EC) 20 mg PO BID losartan-hydrochlorothiazide 100-12.5 mg tablet 1 tab PO DAILY diltiazem HCl 120 mg capsule,extended release 24hr 120 mg PO DAILY acyclovir 400 mg tablet 400 mg PO DAILY multivitamin Tablet 1 tab PO DAILY cyanocobalamin (vitamin B-12) 1 tab PO DAILY vitamin A-vitamin C-vit E-min Tablet 1 tab PO DAILY magnesium 1 tab PO DAILY hydrocodone-acetaminophen 5-325 mg tablet 1 tab PO DAILY potassium chloride 10 mEq tablet extended release 10 meq PO DAILY rosuvastatin 5 mg tablet 2.5 mg PO DAILY hydroxyzine HCl 50 mg tablet 50 mg PO DAILY pantoprazole [Protonix] 40 mg tablet,delayed release (DR/EC) 40 mg PO Q12H Qty: 60 3RF sucralfate 100 mg/mL Suspension 1 gm PO Q6HR Qty: 120 1RF Referrals: Dennis Collins MD [Primary Care Provider] - Stand Alone Forms: Patient Portal/API
[2023-01-22 20:15] LABS: Troponin I < 0.012 ng/mL (0.01-0.034)
[2023-01-22] MEDS: PANTOPRAZOLE 40 MG VIAL IV (20:32)
== END 2023-01-22 20:45 | disposition home or self-care (01) ==
PROVIDERS: Emergency Medicine; Emergency Provider Emergency Medicine; Family Provider Family Medicine; PCP Family Medicine
DX: R07.89 Other chest pain (principal); K21.9 Gastro-esophageal reflux disease without esophagitis
CPT/HCPCS: 36415; 71045; 80053; 82550; 83690; 83735; 84484; 85025; 85610; 85730; 93005; 96374; 99284; C9113

== ENCOUNTER → 2023-02-11 14:02 | Outpatient (CLI) | payer OTHER, SELFPAY ==
[2022-03-12 13:34] VITALS: BMI 24.2
--- NOTE | 2023-02-11 | DI.MG.S_ITS ---
BILATERAL DIGITAL SCREENING MAMMOGRAM 3D/2D WITH CAD: 02/11/2023 CLINICAL: Routine screening. Family history of breast cancer. Comparison is made to exams dated: 02/05/2022 mammogram, 01/20/2021 mammogram - [facility], and 11/27/2019 mammogram - [facility]. Both breasts are almost entirely fatty (category a/<25% glandular tissue). Current study was also evaluated with a Computer Aided Detection (CAD) system. There are benign calcifications in both breasts. No significant masses, calcifications, or other findings are seen in either breast. There has been no significant interval change. IMPRESSION: BENIGN There is no mammographic evidence of malignancy. A 1 year screening mammogram is recommended. Based on the Tyrer Cuzick model (a risk assessment model) the patient's lifetime risk is 0.3% and her 10 year risk is 0.0%. According to the ACR, ACS, and NCCN guidelines, an annual breast MRI exam along with mammogram is recommended if the patient's lifetime risk is 20% or greater. This exam was interpreted at Station ID: [id number]. NOTE: For mammograms, a report in lay terms will be sent to the patient. Approximately 15% of breast malignancies will not be visualized mammographically. In the management of a palpable breast mass, a negative mammogram must not discourage biopsy of a clinically suspicious lesion. Electronically Signed By: Milo snell/avtar:02/11/2023 16:58:56 letter sent: Normal Exam ACR BI-RADS Category 2: Benign Finding(s) 3342F
--- NOTE | 2023-02-11 | DI.CT.S_ITS ---
PROCEDURE: CT CHEST W CON INDICATIONS: COUGH TECHNIQUE: After the administration of intravenous contrast, 5 mm thick sections acquired from the pulmonary apices to the posterior costophrenic angles. 1 mm axial lung, 5 mm thick coronal and sagittal reformats and 7 mm axial MIP were acquired. For radiation dose reduction, the following was used: automated exposure control, adjustment of mA and/or kV according to patient size. COMPARISON: None. FINDINGS: Image quality: Excellent. Lungs and pleura: Plate like atelectasis is present at the bilateral lung bases. No other acute airspace opacities. No suspicious pulmonary nodules. No pleural effusions or pneumothorax. Central and peripheral airways are patent and normal in caliber. Mediastinum: Heart size is normal. No pericardial effusion. No mediastinal or hilar adenopathy by size criteria. Thoracic aorta and central pulmonary arteries are normal in size. Scattered atheromatous calcifications are present within the aortic arch. Esophagus is normal in caliber. No hiatal hernia. Bones and chest wall: No suspicious bony lesions. No vertebral body compression fractures. No axillary or supraclavicular adenopathy by size criteria. A subcentimeter hypodense nodule is present within the right thyroid lobe. Abdomen: Visualized upper abdominal solid organs appear normal. Upper abdominal bowel loops are normal in caliber. IMPRESSION: 1. No acute airspace opacities to explain patient's cough. Dictated by: Yvonne Spencer M.D. on 02/11/2023 at 16:49 Approved by: Yvonne Spencer M.D. on 02/11/2023 at 16:52
== END ==
PROVIDERS: Family Provider Family Medicine; PCP Family Medicine; Referring Provider Family Medicine; Visit Provider Family Medicine
DX: Z12.31 Encounter for screening mammogram for malignant neoplasm of breast (principal); R05.3 Chronic cough; Z80.3 Family history of malignant neoplasm of breast
CPT/HCPCS: 71260; 77063; 77067; Q9967

== ENCOUNTER → 2023-08-17 10:50 | Outpatient (CLI) | payer OTHER, SELFPAY ==
[2022-03-12 13:34] VITALS: BMI 24.2
--- NOTE | 2023-08-17 10:51 | DI.RAD.S_ITS ---
PROCEDURE: XR FOOT LT MIN 3V INDICATIONS: bilateral foot pain TECHNIQUE: 3 views of the foot were acquired. COMPARISON: None. FINDINGS: Bones: No fractures or dislocations. Osteoarthritic changes are noted throughout left foot more notably involving 1st TMT joint. No suspicious bony lesions. Soft tissues: No tibiotalar joint effusion. Achilles tendon appears normal. IMPRESSION: [id number] left foot osteoarthritis. No fracture or dislocation. Dictated by: Oscar Horne M.D. on 08/17/2023 at 12:02 Approved by: Oscar Horne M.D. on 08/17/2023 at 12:03
--- NOTE | 2023-08-17 10:51 | DI.RAD.S_ITS ---
PROCEDURE: XR FOOT RT MIN 3V INDICATIONS: bilateral foot pain TECHNIQUE: 3 views of the foot were acquired. COMPARISON: None. FINDINGS: Bones: Mild hallux valgus is seen. Osteoarthritic changes are noted throughout right foot more notably in 1st MTP joint and 1st TMT joint. No fractures or dislocations. Small dorsal calcaneal enthesophyte is seen. No suspicious bony lesions. Soft tissues: No tibiotalar joint effusion. Achilles tendon appears normal. IMPRESSION: Mild hallux valgus and [id number] right foot osteoarthritis. No fracture or dislocation. Small dorsal calcaneal enthesophyte. No gross soft tissue abnormalities. Dictated by: Oscar Horne M.D. on 08/17/2023 at 12:03 Approved by: Oscar Horne M.D. on 08/17/2023 at 12:04
== END ==
PROVIDERS: Family Provider Family Medicine; PCP Family Medicine; Referring Provider Family Medicine; Visit Provider Family Medicine
DX: M19.072 Primary osteoarthritis, left ankle and foot (principal); M19.071 Primary osteoarthritis, right ankle and foot; M20.11 Hallux valgus (acquired), right foot; M79.671 Pain in right foot; M79.672 Pain in left foot; M77.31 Calcaneal spur, right foot
CPT/HCPCS: 73630

== ENCOUNTER → 2023-12-22 12:29 | Outpatient (CLI) | payer OTHER, SELFPAY ==
[2022-03-12 13:34] VITALS: BMI 24.2
--- NOTE | 2023-12-22 12:31 | DI.RAD.S_ITS ---
PROCEDURE: XR CHEST 2V INDICATIONS: COUGH TECHNIQUE: 2 views of the chest were acquired. COMPARISON: [facility], CR, XR CHEST 1V, 01/22/2023, 16:44. FINDINGS: Surgical changes and devices: None. Lungs and pleura: Lungs are clear. No pleural effusions or pneumothorax. Mediastinum: Mediastinal contours are normal. Heart size is normal. Bones and chest wall: No suspicious bony abnormalities. Soft tissues appear unremarkable. IMPRESSION: No acute pulmonary process. Dictated by: Althea Jaramillo M.D. on 12/22/2023 at 16:01 Approved by: Althea Jaramillo M.D. on 12/22/2023 at 16:01
== END ==
LOC: RAD 12:30
PROVIDERS: Family Provider Family Medicine; PCP Family Medicine; Referring Provider Family Medicine; Visit Provider Family Medicine
DX: R05.2 Subacute cough (principal)
CPT/HCPCS: 71046

== ENCOUNTER 2024-01-01 15:36 | Emergency (ER) | payer OTHER, SELFPAY ==
[2022-03-12 13:34] VITALS: BMI 24.2
[2024-01-01 15:40] VITALS: PULSE 68; O2SAT 96
[2024-01-01 15:41] VITALS: BP 135/61; PULSE 61; O2SAT 97
[2024-01-01 15:44] VITALS: BP 136/61; PULSE 61; RESP 16; TEMP 36.8; O2SAT 97; BMI 23.4
--- NOTE | 2024-01-01 15:50 | EKG_ITS ---
[address] [id number] Test Date: 2024-01-01 Pat Name: Karena Abbasi Department: Room: Gender: Female Certified Personal Trainer: MERCEDES : 1940 Requested By: Order Number: [id number] Reading MD: Jh Trevizo Measurements Intervals [place] Rate: 55 P: 10 NH: 180 QRS: 28 QRSD: 80 T: 31 QT: 418 QTc: 399 Interpretive Statements Sinus bradycardia with premature atrial complexes Electronically Signed On 01-02-2024 7:17:02 PDT by Jh Trevizo
[2024-01-01 15:53] LABS: Add Manual Diff / Slide Review NO; Basophils Absolute Auto 100 /uL (0-100); Basophils Percent Auto 1.1 % (0-2); Eosinophils Absolute Auto 0 /uL (0-450); Eosinophils Percent Auto 0.3 % (2-4); Hematocrit 39.9 % (36-46); Hemoglobin 13.2 g/dL (12.0-16.0); Lymphocytes Absolute Auto 4100 /uL (1100-4500); Lymphocytes Percent Auto 33.1 % (25-40); Mean Corpuscular HGB Conc 33.2 % (30-36); Mean Corpuscular Hemoglobin 29.4 PG (26-34); Mean Corpuscular Volume 88.7 fL (80-100); Monocytes Absolute Auto 800 /uL (0-900); Monocytes Percent Auto 6.7 % (3-14); Neutrophils Absolute Auto 7200 /uL (1500-7000); Neutrophils Percent Auto 58.8 % (50-75); Platelet Count 308 X10^3/uL (150-400); Red Cell Distribution Width 15.7 % (11.6-14.8); White Blood Cell Count 12.3 X10^3/uL (4.5-11.0)
--- NOTE | 2024-01-01 15:54 | ED_ITS ---
HPI - Recheck/Abnormal Lab/Rx General Chief Complaint: Recheck/Abnormal Lab/Rx Stated Complaint: meds not functioning well Time Seen by Provider: 01/01/24 15:42 Source: patient Mode of arrival: Ambulatory History of Present Illness HPI narrative: Patient 83-year-old female history of PVCs PACs started on metoprolol 5 days ago. She was supposed to take 12.5 mg and cut the tablet in half however she has been taking a full tablet. She feels extremely weak and tired. She has not passed out she denies any dizziness or lightheadedness. She has no chest pain no palpitations. Heart rate is currently in the 50s blood pressures in the 130s. He has been monitoring her blood pressure at home it has remained in the 120s she not sure what her heart rate has been but does not think it has been below 50. She denies any fever chills sore throat cough or any other symptom Related Data Home Medications Medication Instructions Recorded Confirmed acyclovir 400 mg tablet 400 mg PO DAILY 04/22/21 03/17/23 cyanocobalamin (vitamin B-12) 1 tab PO DAILY 04/22/21 03/17/23 hydroxyzine HCl 50 mg tablet 50 mg PO DAILY 04/22/21 03/17/23 losartan 100 1 tab PO DAILY 04/22/21 03/17/23 mg-hydrochlorothiazide 12.5 mg tablet magnesium 1 tab PO DAILY 04/22/21 03/17/23 multivitamin 1 tab PO DAILY 04/22/21 03/17/23 omeprazole 20 mg capsule,delayed 20 mg PO BID 04/22/21 03/17/23 release potassium chloride 10 mEq 10 meq PO DAILY 04/22/21 03/17/23 tablet,extended release rosuvastatin 5 mg tablet 2.5 mg PO DAILY 04/22/21 03/17/23 vitamin A-vitamin C-vit E-min 1 tab PO DAILY 04/22/21 03/17/23 tablet clonazepam 0.5 mg tablet 0.5 mg PO DAILY 01/01/24 01/01/24 diltiazem HCl 180 mg 180 mg PO DAILY 01/01/24 01/01/24 capsule,extended release 24 hr duloxetine 30 mg capsule,delayed 30 mg PO DAILY 01/01/24 01/01/24 release furosemide 20 mg tablet 20 mg PO DAILY 01/01/24 01/01/24 gabapentin 100 mg capsule 100 mg PO 3XD 01/01/24 01/01/24 meloxicam 15 mg tablet 15 mg PO DAILY 01/01/24 01/01/24 metoprolol succinate 25 mg 12.5 mg PO DAILY 01/01/24 01/01/24 tablet,extended release 24 hr Previous Rx's Medication Instructions Recorded pantoprazole 40 mg tablet,delayed 40 mg PO Q12H #60 tabs 03/19/22 release (Protonix) sucralfate 100 mg/mL oral 1 gm PO Q6HR #120 mL 03/19/22 suspension Allergies Allergy/AdvReac Type Severity Reaction Status Date / Time No Known Drug Allergies Allergy Verified 03/17/23 09:58 Patient History Surgical History Hx of cholecystectomy History of colon resection H/O neck surgery H/O rotator cuff surgery History of hysterectomy Status post hysterectomy Family History Mother Hypertension Diabetes mellitus Breast cancer Heart disease Father Heart disease Sister Breast cancer Social History marital status: household members: spouse Previous occupational history: retired Smoking Status: Never smoker alcohol intake: current substance use type: does not use Smoking Status: Never smoker alcohol intake frequency: holidays/special occasions only Substance Use Type: does not use Exam Initial Vital Signs Initial Vital Signs: Vital Signs Pulse Rate 68 01/01/24 15:40 Pulse Oximetry 96 01/01/24 15:40 GENERAL: Alert 83-year-old very well-appearing female and in no acute distress. HEENT: Head atraumatic,EOMI, pupils reactive, face symmetric, moist mucous membranes CARDIOVASCULAR: Regular rate and rhythm without murmurs, rubs or gallops. RESPIRATORY: Breath sounds equal bilaterally, no wheezes rales or rhonchi. ABDOMEN: Soft, nontender. Normoactive bowel sounds all 4 quadrants. No guarding or rebound. EXTREMITIES: Normal range of motion, no clubbing or edema. Neurovascularly intact NEUROLOGICAL: Alert and oriented x4.Normal gait and speech. Cranial nerves II through XII grossly intact. SKIN: Warm, dry, no laceration, no petechiae, no rashes or lesions. Course Orders Ordered: ED Orders 01/01/24 15:45 CBC Auto Diff [Complete Blood Count AUTO DIFF] Stat CMP [Comprehensive Metabolic Panel] Stat 01/01/24 15:48 EKG-12 Lead Stat Vital Signs Vital signs: Vital Signs - 8 hr 01/01/24 15:40 01/01/24 15:41 01/01/24 15:41 Temperature Pulse Rate 68 61 Respiratory Rate Blood Pressure 135/61 Pulse Oximetry 96 97 Oxygen Delivery Method 01/01/24 15:44 01/01/24 16:00 01/01/24 16:01 Temperature 98.2 F Pulse Rate 61 52 L Respiratory Rate 16 Blood Pressure 136/61 125/60 Pulse Oximetry 97 97 Oxygen Delivery Method Room Air 01/01/24 16:01 Temperature Pulse Rate 63 Respiratory Rate Blood Pressure Pulse Oximetry 97 Oxygen Delivery Method MDM - Recheck/Abnormal Lab/Rx Lab Data 01/01/24 15:45 01/01/24 15:45 Labs: Lab Results 01/01/24 Range/Units 15:45 WBC 12.3 H (4.5-11.0) X10^3/uL RBC 4.50 (4.0-5.2) X10^6/uL Hgb 13.2 (12.0-16.0) g/dL Hct 39.9 (36-46) % MCV 88.7 (80-100) fL MCH 29.4 (26-34) PG MCHC 33.2 (30-36) % RDW 15.7 H (11.6-14.8) % Plt Count 308 (150-400) X10^3/uL Neut % (Auto) 58.8 (50-75) % Lymph % (Auto) 33.1 (25-40) % Hinds % (Auto) 6.7 (3-14) % Eos % (Auto) 0.3 L (2-4) % Baso % (Auto) 1.1 (0-2) % Neut # (Auto) 7200 H (5547-0324) /uL Lymph # (Auto) 4100 (2698-6949) /uL Hinds # (Auto) 800 (0-900) /uL Eos # (Auto) 0 (0-450) /uL Baso # (Auto) 100 (0-100) /uL Sodium 136 L (137-145) mmol/L Potassium 3.6 (3.4-5.1) mmol/L Chloride 102 (98-107) mmol/L Carbon Dioxide 29 (22-32) mmol/L BUN 28 H (7-17) mg/dL Creatinine 0.87 (0.52-1.04) mg/dL Estimated GFR > 60 (>60) mL/min BUN/Creatinine Ratio 32.2 H (6-22) Glucose 120 H (80-110) mg/dL Calcium 9.2 (8.4-10.2) mg/dL Total Bilirubin 0.7 (0.2-1.3) mg/dL AST 23 (14-36) IU/L ALT 24 (<35) IU/L Alkaline Phosphatase 87 (38-126) U/L Total Protein 7.0 (6.3-8.2) g/dL Albumin 3.7 (3.5-5.0) g/dL Globulin 3.3 (1.7-4.1) g/dL Albumin/Globulin Ratio 1.1 (1.0-2.8) ECG Data Attestation: I personally reviewed and interpreted this ECG as follows: Interpretation: Normal sinus rhythm rate 55 SD interval 180 QRS 80 QTC [address] changes MDM Narrative Medical decision making narrative: Patient is 83-year-old female presenting today with increased fatigue and tiredness. She was started on metoprolol supposed to be 12.5 mg however she has been taking 25. I suspect that her fatigue and tiredness is from the medication itself. She has not had a syncopal episode she denies any dizziness or lightheadedness. Her heart rate is in 50s blood pressure is stable. She is tolerating the 25 mg. But I do suspect that her symptoms are secondary to the metoprolol. EKGs shows sinus bradycardia no ischemia a PAC Blood work has been reviewed she is leukocytosis at 12.3 but she has had this previously no left shift no anemia electrolytes are within normal limits creatinine functional also within normal limits creatinine 0.8 At the time I recommend that she was back to 12.5 mg she can follow-up with her primary care provider and her underwriter mortgage loan. She may not be able to tolerate the metoprolol due to side effects but she has not having concerning side effects at this time such as severe bradycardia syncope or hypotension Discharge Plan Departure Patient Disposition: Home Clinical Impression: Adverse drug reaction Instructions: Metoprolol Activity Restrictions/Additional Instructions: *You have been diagnosed with drug reaction *What to do: At this time I do suspect that your increased tiredness is from the medication. Fortunately you are not having life threatening side effects from this medication but I do believe the fatigue is from the metoprolol. I recommend he cut back to the 12.5 mg as was previously recommended to you *Continue to take medications as directed Metoprolol 12.5 mg daily *Follow up with your primary care provider in 2-3 days or call [phone] *Return to ER if you should have increasing dizziness lightheadedness passing out chest pain [or] any new, worsening or concerning symptoms Prescriptions: No Action metoprolol succinate 25 mg tablet extended release 24 hr 12.5 mg PO DAILY clonazepam 0.5 mg tablet 0.5 mg PO DAILY diltiazem HCl 180 mg capsule,extended release 24hr 180 mg PO DAILY duloxetine 30 mg capsule,delayed release(DR/EC) 30 mg PO DAILY gabapentin 100 mg capsule 100 mg PO 3XD furosemide 20 mg tablet 20 mg PO DAILY meloxicam 15 mg tablet 15 mg PO DAILY omeprazole 20 mg capsule,delayed release(DR/EC) 20 mg PO BID losartan-hydrochlorothiazide 100-12.5 mg tablet 1 tab PO DAILY acyclovir 400 mg tablet 400 mg PO DAILY multivitamin Tablet 1 tab PO DAILY cyanocobalamin (vitamin B-12) 1 tab PO DAILY vitamin A-vitamin C-vit E-min Tablet 1 tab PO DAILY magnesium 1 tab PO DAILY potassium chloride 10 mEq tablet extended release 10 meq PO DAILY rosuvastatin 5 mg tablet 2.5 mg PO DAILY hydroxyzine HCl 50 mg tablet 50 mg PO DAILY pantoprazole [Protonix] 40 mg tablet,delayed release (DR/EC) 40 mg PO Q12H Qty: 60 3RF sucralfate 100 mg/mL Suspension 1 gm PO Q6HR Qty: 120 1RF Referrals: Dennis Collins MD [Primary Care Provider] - Stand Alone Forms: Patient Portal/API
[2024-01-01 16:00] VITALS: PULSE 52; O2SAT 97
[2024-01-01 16:01] VITALS: BP 125/60; PULSE 63; O2SAT 97
[2024-01-01 16:06] LABS: Alanine Aminotransferase 24 IU/L (<35); Albumin 3.7 g/dL (3.5-5.0); Albumin Globulin Ratio 1.1 (1.0-2.8); Alkaline Phosphatase 87 U/L (38-126); Aspartate Aminotransferase 23 IU/L (14-36); BUN Creatinine Ratio 32.2 (6-22); Bilirubin Total 0.7 mg/dL (0.2-1.3); Blood Urea Nitrogen 28 mg/dL (7-17); Calcium 9.2 mg/dL (8.4-10.2); Carbon Dioxide 29 mmol/L (22-32); Chloride 102 mmol/L (98-107); Estimated Glomerular Filt Rate > 60 mL/min (>60); Globulin 3.3 g/dL (1.7-4.1); Glucose 120 mg/dL (80-110); HEMOLYSIS < 15 (0-50); Potassium 3.6 mmol/L (3.4-5.1); Sodium 136 mmol/L (137-145)
== END 2024-01-01 16:19 | disposition home or self-care (01) ==
PROVIDERS: Emergency Provider Emergency Medicine; Family Provider Family Medicine; PCP Family Medicine
DX: R53.83 Other fatigue (principal); R00.1 Bradycardia, unspecified; T44.7X5A Adverse effect of beta-adrenoreceptor antagonists, initial encounter; R79.89 Other specified abnormal findings of blood chemistry
CPT/HCPCS: 36415; 80053; 85025; 93005; 99283; 99284

== ENCOUNTER → 2024-02-15 15:06 | Outpatient (CLI) | payer OTHER, SELFPAY ==
[2022-03-12 13:34] VITALS: BMI 24.2
--- NOTE | 2024-02-15 15:06 | DI.MG.S_ITS ---
BILATERAL DIGITAL SCREENING MAMMOGRAM 3D/2D WITH CAD: 02/15/2024 CLINICAL: Routine screening. Family history of breast cancer. Comparison is made to exams dated: 02/11/2023 mammogram, 02/05/2022 mammogram, and 01/20/2021 mammogram - [facility]. The breasts are almost entirely fatty (category a/<25% glandular tissue). Current study was also evaluated with a Computer Aided Detection (CAD) system. There are benign calcifications in both breasts. No significant masses, calcifications, or other findings are seen in either breast. There has been no significant interval change. IMPRESSION: BENIGN There is no mammographic evidence of malignancy. A 1 year screening mammogram is recommended. This exam was interpreted at Station ID: [id number]. NOTE: For mammograms, a report in lay terms will be sent to the patient. Approximately 15% of breast malignancies will not be visualized mammographically. In the management of a palpable breast mass, a negative mammogram must not discourage biopsy of a clinically suspicious lesion. Electronically Signed By: Marianne hilliard/avtar:02/16/2024 16:17:15 letter sent: Normal Exam ACR BI-RADS Category 2: Benign
== END ==
PROVIDERS: Family Provider Family Medicine; PCP Family Medicine; Referring Provider Family Medicine; Visit Provider Family Medicine
DX: Z12.31 Encounter for screening mammogram for malignant neoplasm of breast (principal); Z80.3 Family history of malignant neoplasm of breast; R92.313 Mammographic fatty tissue density, bilateral breasts
CPT/HCPCS: 77063; 77067

== ENCOUNTER → 2024-04-28 12:24 | Outpatient (CLI) | payer OTHER, SELFPAY ==
[2022-03-12 13:34] VITALS: BMI 24.2
--- NOTE | 2024-04-28 12:28 | DI.CT.S_ITS ---
PROCEDURE: CT ABDOMEN PELVIS W CON INDICATIONS: ABDOMINAL PAIN TECHNIQUE: After the administration of intravenous contrast, axial sections acquired from the lung bases to the pubic symphysis. Coronal and sagittal reformats were performed. For radiation dose reduction, the following was used: automated exposure control, adjustment of mA and/or kV according to patient size. COMPARISON: [facility], CT, CT ABDOMEN PELVIS W CON, 03/25/2022, 13:27. [facility], CT, CT ABDOMEN PELVIS W CON, 03/12/2022, 7:30. FINDINGS: Image quality: Diagnostic. Lower Chest: No significant findings. ABDOMEN: Liver: No solid mass. Gallbladder: Prior cholecystectomy. Biliary ducts: No biliary dilation. Pancreas: No ductal dilation. Spleen: Size is within normal limits. Adrenal Glands: No adrenal nodules. Kidneys and Ureters: No hydronephrosis. No solid mass. No complex renal cystic lesion which requires follow up. Stomach and Bowel: Normal colonic caliber, without significant wall thickening. Peritoneum: No abnormal intraperitoneal fluid. No free air. Ventral Wall: No significant ventral hernia. Abdominal Nodes: No retroperitoneal or mesenteric adenopathy by size criteria. Vessels: Aorta and inferior vena cava are normal in size. PELVIS: Pelvic Organs: Apparent prior hysterectomy.. Bladder: No bladder wall thickening, accounting for underdistention. Pelvic Nodes: No enlarged lymph nodes. Miscellaneous: No inguinal hernias are seen. A normal or abnormal appendix could not be found. Bones: No aggressive osseous abnormality. IMPRESSION: Prior cholecystectomy and hysterectomy. No source of current abdominal pain is identified. A normal appendix was not found but no secondary CT evidence of acute appendicitis is seen. Dictated by: Dk Cabral M.D. on 04/29/2024 at 7:05 Approved by: Dk Cabral M.D. on 04/29/2024 at 7:09
== END ==
PROVIDERS: Family Provider Family Medicine; PCP Family Medicine; Referring Provider Family Medicine; Visit Provider Family Medicine
DX: R10.84 Generalized abdominal pain (principal); Z90.49 Acquired absence of other specified parts of digestive tract; Z90.710 Acquired absence of both cervix and uterus
CPT/HCPCS: 74177; Q9967

== ENCOUNTER 2024-05-21 20:24 | Emergency (ER) | payer OTHER, SELFPAY ==
[2022-03-12 13:34] VITALS: BMI 24.2
[2024-05-21 20:31] VITALS: BP 169/70; PULSE 71; RESP 20; TEMP 36.2; O2SAT 96; BMI 25.0
--- NOTE | 2024-05-21 20:35 | ED_ITS ---
HPI - Extremity Injury (Lower) General Chief Complaint: Extremity Injury, Lower Stated Complaint: glf Time Seen by Provider: 05/21/24 20:24 History of Present Illness HPI Narrative: 84-year-old female presents by EMS from home for right ankle injury. Patient was getting up out of her chair when she twisted her right ankle. She fell to the ground and landed on her right side, hitting her head. She denies loss of consciousness, denies use of blood thinners. She states that her primary concern is her right ankle. Denies any other injuries. Related Data Home Medications Medication Instructions Recorded Confirmed acyclovir 400 mg tablet 400 mg PO DAILY 04/22/21 03/17/23 cyanocobalamin (vitamin B-12) 1 tab PO DAILY 04/22/21 03/17/23 hydroxyzine HCl 50 mg tablet 50 mg PO DAILY 04/22/21 03/17/23 losartan 100 1 tab PO DAILY 04/22/21 03/17/23 mg-hydrochlorothiazide 12.5 mg tablet magnesium 1 tab PO DAILY 04/22/21 03/17/23 multivitamin 1 tab PO DAILY 04/22/21 03/17/23 omeprazole 20 mg capsule,delayed 20 mg PO BID 04/22/21 03/17/23 release potassium chloride 10 mEq 10 meq PO DAILY 04/22/21 03/17/23 tablet,extended release rosuvastatin 5 mg tablet 2.5 mg PO DAILY 04/22/21 03/17/23 vitamin A-vitamin C-vit E-min 1 tab PO DAILY 04/22/21 03/17/23 tablet clonazepam 0.5 mg tablet 0.5 mg PO DAILY 01/01/24 01/01/24 diltiazem HCl 180 mg 180 mg PO DAILY 01/01/24 01/01/24 capsule,extended release 24 hr duloxetine 30 mg capsule,delayed 30 mg PO DAILY 01/01/24 01/01/24 release furosemide 20 mg tablet 20 mg PO DAILY 01/01/24 01/01/24 gabapentin 100 mg capsule 100 mg PO 3XD 01/01/24 01/01/24 meloxicam 15 mg tablet 15 mg PO DAILY 01/01/24 01/01/24 metoprolol succinate 25 mg 12.5 mg PO DAILY 01/01/24 01/01/24 tablet,extended release 24 hr Previous Rx's Medication Instructions Recorded pantoprazole 40 mg tablet,delayed 40 mg PO Q12H #60 tabs 03/19/22 release (Protonix) sucralfate 100 mg/mL oral 1 gm PO Q6HR #120 mL 03/19/22 suspension Allergies Allergy/AdvReac Type Severity Reaction Status Date / Time No Known Drug Allergies Allergy Verified 03/17/23 09:58 Patient History Surgical History Hx of cholecystectomy History of colon resection H/O neck surgery H/O rotator cuff surgery History of hysterectomy Status post hysterectomy Family History Mother Hypertension Diabetes mellitus Breast cancer Heart disease Father Heart disease Sister Breast cancer Social History marital status: household members: spouse Previous occupational history: retired Smoking Status: Never smoker alcohol intake: current substance use type: does not use Smoking Status: Never smoker alcohol intake frequency: holidays/special occasions only Exam Initial Vital Signs Initial Vital Signs: Vital Signs Temperature 97.2 F L 05/21/24 20:31 Pulse Rate 71 05/21/24 20:31 Respiratory Rate 20 05/21/24 20:31 Blood Pressure 169/70 H 05/21/24 20:31 Pulse Oximetry 96 05/21/24 20:31 Oxygen Delivery Method Room Air 05/21/24 20:31 Const: Awake, alert, no acute distress, nontoxic appearing Cardiac: regular rate, regular rhythm RESP: unlabored, conversational without dyspnea MSK: Soft tissue swelling right ankle, right lateral malleolar tenderness to palpation, palpable DP pulses, capillary refill less than 2 seconds, able to wiggle toes Skin: Warm, Dry, intact, no rashes Neuro: AO x3, CN II-XII grossly intact, moves all extremities Course Orders Ordered: ED Orders 05/21/24 20:33 XR ankle RT min 3V Stat 05/21/24 20:35 CT head/brain wo con Stat 05/21/24 23:04 CT LE RT wo con Stat Discontinued Medications Ondansetron HCl (Ondansetron 4 Mg Odt) 4 mg SL NOW ONE Stop: 05/21/24 20:36 Last Admin: 05/21/24 20:42 Dose: 4 mg Documented By: SB Oxycodone HCl (Oxycodone Ir 5 Mg Tablet) 5 mg PO NOW ONE Stop: 05/21/24 20:36 Last Admin: 05/21/24 20:42 Dose: 5 mg Documented By: SB Vital Signs Vital signs: Vital Signs - 8 hr 05/22/24 00:35 Pulse Rate 78 Respiratory Rate 18 Blood Pressure 165/70 H Pulse Oximetry 97 Oxygen Delivery Method Room Air MDM - Extremity Injury (Lower) Imaging Data Extremity x-ray #1: Radiologist's Impression: PROCEDURE: XR ANKLE RT MIN 3V INDICATIONS: fall with right ankle pain TECHNIQUE: 3 views of the ankle were acquired. COMPARISON: None. FINDINGS: Bones: No acute fractures or dislocations. Small corticated ossifications adjacent to the medial and lateral malleolar likely the sequela of remote prior injuries. Posterior and plantar calcaneal enthesophytes. Ankle mortise is normally aligned. No suspicious bony lesions. Soft tissues: Mild nonspecific soft tissue edema. IMPRESSION: No acute osseous abnormality. If there is continued clinical concern or persistent symptoms, repeat radiographs or cross-sectional imaging (e.g. CT, MRI) may be helpful for further evaluation. Approved by: Milo Persaud M.D. on 05/21/2024 at 22:30 CT scan - head: Radiologist's Impression: PROCEDURE: CT HEAD/BRAIN WO CON INDICATIONS: glf, head injury TECHNIQUE: Noncontrast 4.5 mm thick angled axial sections acquired from the foramen magnum to the vertex, with coronal and sagittal reformats. For radiation dose reduction, the following was used: automated exposure control, adjustment of mA and/or kV according to patient size. COMPARISON: [facility], MR, MR BRAIN WITHOUT CONTRAST, 11/01/2023, 13:44. FINDINGS: Image quality: Diagnostic. CSF spaces: Basal cisterns are patent. No extra-axial fluid collections. The ventricles are symmetric in size and shape. Brain: No acute intracranial hemorrhage or mass effect. There is cerebral volume loss for age, with resultant ventricular and sulcal prominence. There are periventricular and deep white matter chronic small vessel ischemic changes. There is intracranial internal carotid artery atherosclerosis. Skull and face: Calvarium and visualized facial bones appear intact, without suspicious lesions. Sinuses: Visualized sinuses and mastoids are clear. IMPRESSION: No acute intracranial pathology. Approved by: Milo Persaud M.D. on 05/21/2024 at 21:20 Extremity x-ray #2: Radiologist's Impression: PROCEDURE: CT LE RT WO CON INDICATIONS: RLE PAIN, CAN'T BEAR WEIGHT TECHNIQUE: Noncontrast 3 mm axial sections acquired of the right tibia/fibula, with coronal and sagittal reformats. For radiation dose reduction, the following was used: automated exposure control, adjustment of mA and/or kV according to patient size. COMPARISON: [facility], CR, XR ANKLE RT MIN 3V, 05/21/2024, 20:58. FINDINGS: Image quality: Excellent. Bones: No acute osseous fracture or dislocation. Generalized osteopenia. Small ossifications are seen adjacent to the medial and lateral malleolar tips compatible with remote prior injuries. Posterior and plantar calcaneal enthesophytes. Soft tissues: No significant hip or knee effusion. Chondrocalcinosis is noted in the knee. Mild nonspecific soft tissue edema most prominent over the lateral malleolus. The ligaments, tendons, and articular cartilages are not well evaluated with CT. There is mild fatty infiltration of the foot musculature compatible with mild chronic denervation changes. IMPRESSION: 1. No acute osseous fracture. Soft tissue edema is most prominent over the lateral malleolus. If there is continued concern for acute trabecular bone injury or soft tissue injury, MRI could be performed for further evaluation. 2. Chondrocalcinosis. Approved by: Milo Persaud M.D. on 05/21/2024 at 23:56 MDM Narrative Medical decision making narrative: Ground level fall after twisting her ankle. Patient does have swelling of her right ankle but is otherwise neurovascularly intact. Initial x-ray negative for acute fracture but patient unable to bear weight even with the assistance of a walker. An Jose A wrap bandage was placed and a CT obtained. After time spent with the Jose A wrap bandage and after learning that the CT was negative for signs of fracture the patient was able to ambulate several steps with a walker. Her daughter is at bedside and state that the patient will come home with her tonight as the house is a single level and they will be able to help the patient with her needs throughout the night. Patient counseled to continue to wear the Jose A wrap bandage as needed for comfort, apply ice as needed for swelling, and to elevate her leg to decrease swelling. Patient states that she has oxycodone at home that she can take for pain if she needs it. Patient was advised of the risk of opiate use and increased risk of falling. Discharge Plan Departure Patient Disposition: Home Clinical Impression: Ankle sprain Instructions: DI for Ankle Sprain Activity Restrictions/Additional Instructions: Your x-ray and CT did not show any fracture. You likely have a sprain of your ankle. Wear the Jose A wrap bandage during the day for comfort. Keep your ankle elevated above heart level to prevent swelling. Tylenol and ice are 1st line for pain control, however if you continued to have pain then you may take the oxycodone you still have at home. Be very careful if you take a narcotic pain medication such as oxycodone because these medications can cause drowsiness and we will put you at increased risk of falling. They also cause constipation so he should take a stool softener if you take a narcotic pain medication. Prescriptions: No Action metoprolol succinate 25 mg tablet extended release 24 hr 12.5 mg PO DAILY clonazepam 0.5 mg tablet 0.5 mg PO DAILY diltiazem HCl 180 mg capsule,extended release 24hr 180 mg PO DAILY duloxetine 30 mg capsule,delayed release(DR/EC) 30 mg PO DAILY gabapentin 100 mg capsule 100 mg PO 3XD furosemide 20 mg tablet 20 mg PO DAILY meloxicam 15 mg tablet 15 mg PO DAILY omeprazole 20 mg capsule,delayed release(DR/EC) 20 mg PO BID losartan-hydrochlorothiazide 100-12.5 mg tablet 1 tab PO DAILY acyclovir 400 mg tablet 400 mg PO DAILY multivitamin Tablet 1 tab PO DAILY cyanocobalamin (vitamin B-12) 1 tab PO DAILY vitamin A-vitamin C-vit E-min Tablet 1 tab PO DAILY magnesium 1 tab PO DAILY potassium chloride 10 mEq tablet extended release 10 meq PO DAILY rosuvastatin 5 mg tablet 2.5 mg PO DAILY hydroxyzine HCl 50 mg tablet 50 mg PO DAILY pantoprazole [Protonix] 40 mg tablet,delayed release (DR/EC) 40 mg PO Q12H Qty: 60 3RF sucralfate 100 mg/mL Suspension 1 gm PO Q6HR Qty: 120 1RF Referrals: Dennis Collins MD [Primary Care Provider] - Stand Alone Forms: Patient Portal/API/Survey
[2024-05-21] MEDS: OXYCODONE IR 5 MG TABLET PO (20:42)
[2024-05-21] MEDS: ONDANSETRON 4 MG ODT SL (20:42)
--- NOTE | 2024-05-21 23:04 | DI.CT.S_ITS ---
PROCEDURE: CT LE RT WO CON INDICATIONS: RLE PAIN, CAN'T BEAR WEIGHT TECHNIQUE: Noncontrast 3 mm axial sections acquired of the right tibia/fibula, with coronal and sagittal reformats. For radiation dose reduction, the following was used: automated exposure control, adjustment of mA and/or kV according to patient size. COMPARISON: [facility], CR, XR ANKLE RT MIN 3V, 05/21/2024, 20:58. FINDINGS: Image quality: Excellent. Bones: No acute osseous fracture or dislocation. Generalized osteopenia. Small ossifications are seen adjacent to the medial and lateral malleolar tips compatible with remote prior injuries. Posterior and plantar calcaneal enthesophytes. Soft tissues: No significant hip or knee effusion. Chondrocalcinosis is noted in the knee. Mild nonspecific soft tissue edema most prominent over the lateral malleolus. The ligaments, tendons, and articular cartilages are not well evaluated with CT. There is mild fatty infiltration of the foot musculature compatible with mild chronic denervation changes. IMPRESSION: 1. No acute osseous fracture. Soft tissue edema is most prominent over the lateral malleolus. If there is continued concern for acute trabecular bone injury or soft tissue injury, MRI could be performed for further evaluation. 2. Chondrocalcinosis. Approved by: Milo Persaud M.D. on 05/21/2024 at 23:56
--- NOTE | 2024-05-22 00:23 | PC.NURSE ---
Pt able to stand and use walker to ambulate multiple steps toward bathroom. Provider made aware. Pt reports having walker at home.
[2024-05-22 00:35] VITALS: BP 165/70; PULSE 78; RESP 18; O2SAT 97
== END 2024-05-22 01:06 | disposition home or self-care (01) ==
PROVIDERS: Emergency Provider Emergency Medicine; Family Provider Family Medicine; PCP Family Medicine
DX: S93.401A Sprain of unspecified ligament of right ankle, initial encounter (principal); S09.90XA Unspecified injury of head, initial encounter; W18.30XA Fall on same level, unspecified, initial encounter
CPT/HCPCS: 70450; 73610; 73700; 99283; 99284

== ENCOUNTER 2024-05-29 11:51 | Emergency (ER) | payer OTHER, SELFPAY ==
[2022-03-12 13:34] VITALS: BMI 24.2
[2024-05-29 11:54] VITALS: BP 135/61; PULSE 66; RESP 18; TEMP 36.4; O2SAT 99; BMI 25.0
--- NOTE | 2024-05-29 14:24 | ED_ITS ---
HPI - Skin/Abscess/Foreign Bdy <Rupesh Mckinney PA-C - Last Filed: 05/29/24 15:38> General Chief complaint: Skin/Abscess/Foreign Body Stated complaint: infected laceration Time Seen by Provider: 05/29/24 12:56 Source: patient and family Mode of arrival: Wheelchair Limitations: no limitations History of Present Illness HPI narrative: 84-year-old female presents to the ED with worsening of a left lower leg skin tear. Patient was seen in the ED on 05/21/2024 for a right ankle sprain and a left weber skin tear. The skin tear was cleaned and dressed. Patient states that the wound appeared to be healing, however over the last 2 days, the wound has become more painful, red. This morning, patient states that the wound has become purulent. No fever, chills. Patient also complains of the right ankle not consistently improving. No numbness, tingling, weakness. Patient is able to bear weight and walk with a walker. Related Data Home Medications Medication Instructions Recorded Confirmed acyclovir 400 mg tablet 400 mg PO DAILY 04/22/21 03/17/23 cyanocobalamin (vitamin B-12) 1 tab PO DAILY 04/22/21 03/17/23 hydroxyzine HCl 50 mg tablet 50 mg PO DAILY 04/22/21 03/17/23 losartan 100 1 tab PO DAILY 04/22/21 03/17/23 mg-hydrochlorothiazide 12.5 mg tablet magnesium 1 tab PO DAILY 04/22/21 03/17/23 multivitamin 1 tab PO DAILY 04/22/21 03/17/23 omeprazole 20 mg capsule,delayed 20 mg PO BID 04/22/21 03/17/23 release potassium chloride 10 mEq 10 meq PO DAILY 04/22/21 03/17/23 tablet,extended release rosuvastatin 5 mg tablet 2.5 mg PO DAILY 04/22/21 03/17/23 vitamin A-vitamin C-vit E-min 1 tab PO DAILY 04/22/21 03/17/23 tablet clonazepam 0.5 mg tablet 0.5 mg PO DAILY 01/01/24 01/01/24 diltiazem HCl 180 mg 180 mg PO DAILY 01/01/24 01/01/24 capsule,extended release 24 hr duloxetine 30 mg capsule,delayed 30 mg PO DAILY 01/01/24 01/01/24 release furosemide 20 mg tablet 20 mg PO DAILY 01/01/24 01/01/24 gabapentin 100 mg capsule 100 mg PO 3XD 01/01/24 01/01/24 meloxicam 15 mg tablet 15 mg PO DAILY 01/01/24 01/01/24 metoprolol succinate 25 mg 12.5 mg PO DAILY 01/01/24 01/01/24 tablet,extended release 24 hr Previous Rx's Medication Instructions Recorded pantoprazole 40 mg tablet,delayed 40 mg PO Q12H #60 tabs 03/19/22 release (Protonix) sucralfate 100 mg/mL oral 1 gm PO Q6HR #120 mL 03/19/22 suspension cephalexin 500 mg capsule 500 mg PO Q8H 5 days #15 caps 05/29/24 sulfamethoxazole 800 1 tab PO Q12H 7 days #14 tabs 05/29/24 mg-trimethoprim 160 mg tablet (Bactrim DS) Allergies Allergy/AdvReac Type Severity Reaction Status Date / Time No Known Drug Allergies Allergy Verified 03/17/23 09:58 Review of Systems <Rupesh Mckinney PA-C - Last Filed: 05/29/24 15:38> Constitutional Constitutional: Denies chills, Denies fatigue, Denies fever(s), Denies frequent falls, Denies lethargy and Denies weakness Eyes Eyes: Denies change in vision, Denies eye discharge, Denies irritation and Denies loss of vision ENT Ears, Nose, Mouth, and Throat: Denies change in voice, Denies dizziness, Denies neck pain, Denies sore throat and Denies throat swelling Cardiovascular Cardiovascular: Denies chest pain, Denies irregular heart rhythm, Denies lightheadedness, Denies palpitations, Denies dyspnea, Denies dyspnea on exertion and Denies orthopnea Respiratory Respiratory: Denies cough, Denies dyspnea, Denies dyspnea on exertion and Denies wheezing Gastrointestinal Gastrointestinal: Denies abdominal pain, Denies change in bowel habits, Denies diarrhea, Denies nausea and Denies vomiting Musculoskeletal Musculoskeletal: Denies neck pain and Denies numbness Integumentary/Breasts Skin/Breast: Denies pruritus, Denies erythema, Denies rash and Reports wounds Neurologic Neurologic: Denies behavioral changes, Denies confusion, Denies dizziness, Denies frequent falls, Denies loss of vision, Denies numbness and Denies weakness Psychiatric Psychiatric: Denies anxiety, Denies behavioral changes, Denies confusion, Denies depression, Denies homicidal ideation and Denies suicidal ideation Endocrine Endocrine: Denies fatigue, Denies flushing and Denies palpitations Hematologic/Lymphatic Hematologic/Lymphatic: Denies easy bruising Allergic/Immunologic Allergic/Immunologic: Denies urticaria, Denies throat swelling and Denies wheezing Patient History <Rupesh Mckinney PA-C - Last Filed: 05/29/24 15:38> Surgical History Hx of cholecystectomy History of colon resection H/O neck surgery H/O rotator cuff surgery History of hysterectomy Status post hysterectomy Family History Mother Hypertension Diabetes mellitus Breast cancer Heart disease Father Heart disease Sister Breast cancer Social History marital status: household members: spouse Previous occupational history: retired Smoking Status: Never smoker alcohol intake: current substance use type: does not use Smoking Status: Never smoker alcohol intake frequency: holidays/special occasions only Exam <Rupesh Mckinney PA-C - Last Filed: 05/29/24 15:38> Narrative Exam Narrative: Const General:?cooperative, healthy appearing and comfortable [facility] Head:?normal to inspection Ears:?hearing grossly normal bilaterally Nose:?external nose normal Face and sinus:?normal facial exam and sinuses nontender Mouth:?oral mucosae normal Throat:?posterior oropharynx normal Eyes General:?appearance normal, both eyes and all related structures Neck Neck:?normal visual inspection and no lymphadenopathy noted Resp Effort & Inspection:?normal respiratory effort Auscultation:?clear to auscultation bilaterally Cardio Rate:?regular rate Rhythm:?regular rhythm Integumentary The skin tear on the left lower weber appears to be infected. There is purulence as well as surrounding erythema. Neurovascularly intact. Neuro General:?patient alert, patient awake and patient oriented x3 Initial Vital Signs Initial Vital Signs: Vital Signs Temperature 97.5 F L 05/29/24 11:54 Pulse Rate 66 05/29/24 11:54 Respiratory Rate 18 05/29/24 11:54 Blood Pressure 135/61 05/29/24 11:54 Pulse Oximetry 99 05/29/24 11:54 Oxygen Delivery Method Room Air 05/29/24 11:54 <Mian March MD - Last Filed: 05/29/24 22:06> Initial Vital Signs Initial Vital Signs: Vital Signs Temperature 97.5 F L 05/29/24 11:54 Pulse Rate 66 05/29/24 11:54 Respiratory Rate 18 05/29/24 11:54 Blood Pressure 135/61 05/29/24 11:54 Pulse Oximetry 99 05/29/24 11:54 Oxygen Delivery Method Room Air 05/29/24 11:54 Course <Rupesh Mckinney PA-C - Last Filed: 05/29/24 15:38> Orders Ordered: ED Orders 05/29/24 14:41 Wound Culture and Gram Stain Stat Discontinued Medications Bacitracin (Bacitracin Oint 0.9 Gm Pckt) 1 applic TOP NOW ONE Stop: 05/29/24 14:50 Last Admin: 05/29/24 14:56 Dose: 1 applic Documented By: RALPH Cephalexin HCl (Cephalexin 250 Mg Capsule) 500 mg PO NOW ONE Stop: 05/29/24 14:41 Last Admin: 05/29/24 14:47 Dose: 500 mg Documented By: RALPH Trimethoprim/Sulfamethoxazole (Trimeth/Sulfa 160/800 (Ds) Tablet) 1 tab PO NOW ONE Stop: 05/29/24 14:41 Last Admin: 05/29/24 14:47 Dose: 1 tab Documented By: RALPH Vital Signs Vital signs: Vital Signs - 8 hr 05/29/24 11:54 Temperature 97.5 F L Pulse Rate 66 Respiratory Rate 18 Blood Pressure 135/61 Pulse Oximetry 99 Oxygen Delivery Method Room Air <Mian March MD - Last Filed: 05/29/24 22:06> Orders Ordered: ED Orders 05/29/24 14:41 Wound Culture and Gram Stain Stat Discontinued Medications Bacitracin (Bacitracin Oint 0.9 Gm Pckt) 1 applic TOP NOW ONE Stop: 05/29/24 14:50 Last Admin: 05/29/24 14:56 Dose: 1 applic Documented By: RALPH Cephalexin HCl (Cephalexin 250 Mg Capsule) 500 mg PO NOW ONE Stop: 05/29/24 14:41 Last Admin: 05/29/24 14:47 Dose: 500 mg Documented By: RALPH Trimethoprim/Sulfamethoxazole (Trimeth/Sulfa 160/800 (Ds) Tablet) 1 tab PO NOW ONE Stop: 05/29/24 14:41 Last Admin: 05/29/24 14:47 Dose: 1 tab Documented By: RALPH Vital Signs Vital signs: Vital Signs - 8 hr 05/29/24 11:54 Temperature 97.5 F L Pulse Rate 66 Respiratory Rate 18 Blood Pressure 135/61 Pulse Oximetry 99 Oxygen Delivery Method Room Air MDM - Skin/Abscess/Foreign Bdy <Rupesh Mckinney PA-C - Last Filed: 05/29/24 15:38> [facility] Narrative Medical decision making narrative: 84-year-old female presents to the ED with worsening of a left lower leg skin tear. Physical exam is consistent with purulent cellulitis of the wound. Patient prescribed antibiotics. Specimen sent for wound culture. First dose of antibiotics given in the ED. Wound care, signs of worsening infection discussed with patient and patient's daughter. Ankle appears to be healing, however slowly. Recommend follow-up with PCP Dr. Collins for further evaluation. ED return precautions discussed with patient and patient's daughter. They verbalized understanding. Medical records reviewed: Yes Discharge Plan Departure Patient Disposition: Home Clinical Impression: Cellulitis Qualifiers: Site of cellulitis: extremity Site of cellulitis of extremity: lower extremity Laterality: left Qualified Code(s): L03.116 - Cellulitis of left lower limb Instructions: DI for Cellulitis -- Adult Activity Restrictions/Additional Instructions: You were evaluated in the ED today for a painful skin tear. It appears that your wound is infected. We have sent a sample for culture. You have been prescribed 2 antibiotics, cephalexin and Bactrim. You were given the 1st dose dose of antibiotics in the ED today. Please keep the wound clean, dry and covered with a bandage. Please follow-up with your PCP Dr. Collins as soon as possible. Return to the ED if you have worsening symptoms, fever, chills. Prescriptions: New cephalexin 500 mg capsule 500 mg PO Q8H 5 Days Qty: 15 0RF sulfamethoxazole-trimethoprim [Bactrim DS] 800-160 mg tablet 1 tab PO Q12H 7 Days Qty: 14 0RF No Action metoprolol succinate 25 mg tablet extended release 24 hr 12.5 mg PO DAILY clonazepam 0.5 mg tablet 0.5 mg PO DAILY diltiazem HCl 180 mg capsule,extended release 24hr 180 mg PO DAILY duloxetine 30 mg capsule,delayed release(DR/EC) 30 mg PO DAILY gabapentin 100 mg capsule 100 mg PO 3XD furosemide 20 mg tablet 20 mg PO DAILY meloxicam 15 mg tablet 15 mg PO DAILY omeprazole 20 mg capsule,delayed release(DR/EC) 20 mg PO BID losartan-hydrochlorothiazide 100-12.5 mg tablet 1 tab PO DAILY acyclovir 400 mg tablet 400 mg PO DAILY multivitamin Tablet 1 tab PO DAILY cyanocobalamin (vitamin B-12) 1 tab PO DAILY vitamin A-vitamin C-vit E-min Tablet 1 tab PO DAILY magnesium 1 tab PO DAILY potassium chloride 10 mEq tablet extended release 10 meq PO DAILY rosuvastatin 5 mg tablet 2.5 mg PO DAILY hydroxyzine HCl 50 mg tablet 50 mg PO DAILY pantoprazole [Protonix] 40 mg tablet,delayed release (DR/EC) 40 mg PO Q12H Qty: 60 3RF sucralfate 100 mg/mL Suspension 1 gm PO Q6HR Qty: 120 1RF Referrals: Dennis Collins MD [Primary Care Provider] - Stand Alone Forms: Patient Portal/API/Survey ED Sign-out <Mian March MD - Last Filed: 05/29/24 22:06> Cosign ED Attending Cosignature Attestation: I was immediately available in the department for consultation. This documentation has been reviewed and I agree with assessment and plan. Supervised by Mian March MD
[2024-05-29] MEDS: TRIMETH/SULFA 160/800 (DS) TABLET 1 TAB PO (14:47)
[2024-05-29] MEDS: cephALEXin 250 MG CAPSULE 500 MG PO (14:47)
[2024-05-29] MEDS: BACITRACIN OINT 0.9 GM PCKT 1 APPLIC TOP (14:56)
--- NOTE | 2024-05-29 15:14 | PC.NURSE ---
Bacitracin ointment on wound. Wrapped with nonstick guaze pad, kerlix and jose a wrap. Jose A wrap placed on right sprained ankle. Pt tolerated well.
== END 2024-05-29 15:15 | disposition home or self-care (01) ==
PROVIDERS: Emergency Provider Student in an Organized Health Care Education/Training Program; Family Provider Family Medicine; PCP Family Medicine
DX: L03.116 Cellulitis of left lower limb (principal)
CPT/HCPCS: 87070; 87075; 87205; 99283

== ENCOUNTER 2024-06-05 09:52 | Emergency (ER) | payer OTHER, SELFPAY ==
[2022-03-12 13:34] VITALS: BMI 24.2
[2024-06-05] VITALS (27 sets, daily range): BP systolic 125–180; BP diastolic 57–70; PULSE 63–88; RESP 16–41; TEMP 36.8; O2SAT 92–98; BMI 24.7
--- NOTE | 2024-06-05 10:04 | ED.ABDPAIN ---
HPI - Abdominal Pain General Chief Complaint: Abdominal Pain Stated Complaint: NV/ LUQ pain Time Seen by Provider: 06/05/24 10:04 Source: EMS Mode of arrival: EMS History of Present Illness HPI narrative: 84-year-old female with a past medical history of hypertension comes into the ED via EMS from home for evaluation of nausea and vomiting left upper quadrant abdominal pain since yesterday. States that she has a history of pancreatitis this does feel similar. Patient states that she recently was treated for a left ankle cellulitis currently still receiving/taking this antibiotic. According to EMS patient did receive 4 mg Zofran prior to arrival slight improvement but still nauseous. States that she has only 1 more dose of her antibiotic left for her cellulitis of her lower extremity not complaining of any injuries or she was at this time. Not complaining of any other symptoms such as headache visual disturbances chest pain shortness of breath fever chills or any other GI/ symptoms at this time Related Data Home Medications Medication Instructions Recorded Confirmed acyclovir 400 mg tablet 400 mg PO DAILY 04/22/21 03/17/23 cyanocobalamin (vitamin B-12) 1 tab PO DAILY 04/22/21 03/17/23 hydroxyzine HCl 50 mg tablet 50 mg PO DAILY 04/22/21 03/17/23 losartan 100 1 tab PO DAILY 04/22/21 03/17/23 mg-hydrochlorothiazide 12.5 mg tablet magnesium 1 tab PO DAILY 04/22/21 03/17/23 multivitamin 1 tab PO DAILY 04/22/21 03/17/23 omeprazole 20 mg capsule,delayed 20 mg PO BID 04/22/21 03/17/23 release potassium chloride 10 mEq 10 meq PO DAILY 04/22/21 03/17/23 tablet,extended release rosuvastatin 5 mg tablet 2.5 mg PO DAILY 04/22/21 03/17/23 vitamin A-vitamin C-vit E-min 1 tab PO DAILY 04/22/21 03/17/23 tablet clonazepam 0.5 mg tablet 0.5 mg PO DAILY 01/01/24 01/01/24 diltiazem HCl 180 mg 180 mg PO DAILY 01/01/24 01/01/24 capsule,extended release 24 hr duloxetine 30 mg capsule,delayed 30 mg PO DAILY 01/01/24 01/01/24 release furosemide 20 mg tablet 20 mg PO DAILY 01/01/24 01/01/24 gabapentin 100 mg capsule 100 mg PO 3XD 01/01/24 01/01/24 meloxicam 15 mg tablet 15 mg PO DAILY 01/01/24 01/01/24 metoprolol succinate 25 mg 12.5 mg PO DAILY 01/01/24 01/01/24 tablet,extended release 24 hr Previous Rx's Medication Instructions Recorded pantoprazole 40 mg tablet,delayed 40 mg PO Q12H #60 tabs 03/19/22 release (Protonix) sucralfate 100 mg/mL oral 1 gm PO Q6HR #120 mL 03/19/22 suspension metoclopramide HCl 10 mg tablet 10 mg PO BID PRN nausea and 06/05/24 (Reglan) vomiting 5 days #10 tabs Allergies Allergy/AdvReac Type Severity Reaction Status Date / Time No Known Drug Allergies Allergy Verified 03/17/23 09:58 Review of Systems Review of Systems Narrative: General: Denies fever, chills, weight loss HEENT: Denies headache, eye drainage, eye irritation, head trauma, sore throat, voice change Cardiovascular: Denies any chest pain, palpitations, shortness of breath, tachycardia Respiratory: Denies any shortness of breath, cough, wheeze, stridor GI/: Positive epigastric abdominal pain, nausea, vomiting, denies diarrhea,, bright red blood per rectum, melanotic stools, urinary frequency, urinary retention, dysuria, hematuria MSK: Denies any joint pain, muscle pains, swelling Skin: Denies any rashes, lesions, discoloration Neuro: Denies any headache, lightheadedness, dizziness, fainting, weakness Psych: Denies SI/HI Patient History Surgical History Hx of cholecystectomy History of colon resection H/O neck surgery H/O rotator cuff surgery History of hysterectomy Status post hysterectomy Family History Mother Hypertension Diabetes mellitus Breast cancer Heart disease Father Heart disease Sister Breast cancer Social History marital status: household members: spouse Previous occupational history: retired Smoking Status: Never smoker alcohol intake: current substance use type: does not use Smoking Status: Never smoker alcohol intake frequency: holidays/special occasions only Exam Narrative Exam Narrative: General: Cooperative, comfortable, well-developed, not in acute distress HEENT: Normocephalic, atraumatic, PERRLA, normal sclera, eyelids normal, Neck: Active full range of motion, atraumatic Chest: Normal to inspection, negative crepitus, no overlying erythema ecchymosis Respiratory: Normal respiratory effort, not in acute respiratory distress, clear to auscultation bilaterally negative cough, wheeze, tachypnea, rhonchi, rales Cardiology: Regular rate rhythm negative gallop, murmur, rubs GI/: Normal to inspection, soft, nonrigid, mild tenderness to palpation epigastric region, exam deferred MSK: Full range of active range of motion of all 4 extremities, atraumatic Skin: No rashes lesions noted Neuro: Alert awake oriented x3, moves all 4 extremities spontaneously, cranial nerves intact, able to answer all questions appropriately follows commands appropriately Psych: Cooperative, negative suicidal or homicidal ideations Initial Vital Signs Initial Vital Signs: Vital Signs Temperature 98.3 F 06/05/24 09:57 Pulse Rate 87 06/05/24 09:57 Respiratory Rate 19 06/05/24 09:57 Blood Pressure 153/70 H 06/05/24 09:57 Pulse Oximetry 98 06/05/24 09:57 Oxygen Delivery Method Room Air 06/05/24 09:57 Course Orders Ordered: ED Orders 06/05/24 10:00 Complete Blood Count AUTO DIFF Stat Comprehensive Metabolic Panel Stat Lipase Stat MAG [Magnesium] Stat Troponin & CK Cardiac Panel Stat 06/05/24 10:03 EKG-12 Lead Stat 06/05/24 10:05 CT abdomen pelvis w con Stat CXR [XR chest 1V] Stat 06/05/24 13:50 US abdomen limited Stat Ondansetron HCl (Ondansetron 4 Mg/2 Ml Inj) 4 mg IV NOW PRN PRN Reason: Nausea And Vomiting Ondansetron HCl (Ondansetron 4 Mg Odt) 4 mg PO NOW PRN PRN Reason: Nausea And Vomiting Discontinued Medications Famotidine (Famotidine 20 Mg/2 Ml Vial) 20 mg IV NOW ONE Stop: 06/05/24 10:07 Last Admin: 06/05/24 10:40 Dose: 20 mg Documented By: RB Metoclopramide HCl (Metoclopramide 10 Mg/2 Ml Inj) 10 mg IV NOW ONE Stop: 06/05/24 10:15 Last Admin: 06/05/24 10:40 Dose: 10 mg Documented By: RB Morphine Sulfate (Morphine 2 Mg/Ml Inj) 2 mg IV NOW ONE Stop: 06/05/24 11:12 Last Admin: 06/05/24 12:11 Dose: 2 mg Documented By: RB Vital Signs Vital signs: Vital Signs - 8 hr 06/05/24 09:57 06/05/24 10:06 06/05/24 10:08 Temperature 98.3 F Pulse Rate 87 83 Respiratory Rate 19 32 H Blood Pressure 153/70 H 162/69 H Pulse Oximetry 98 98 Oxygen Delivery Method Room Air 06/05/24 10:08 06/05/24 10:15 06/05/24 10:15 Temperature Pulse Rate 84 88 Respiratory Rate 34 H 29 H Blood Pressure 150/68 H Pulse Oximetry 97 96 Oxygen Delivery Method 06/05/24 10:30 06/05/24 10:30 06/05/24 10:44 Temperature Pulse Rate 82 83 Respiratory Rate 20 25 H Blood Pressure 157/70 H Pulse Oximetry 92 95 Oxygen Delivery Method 06/05/24 10:45 06/05/24 10:45 06/05/24 11:00 Temperature Pulse Rate 88 86 Respiratory Rate 23 32 H Blood Pressure 125/57 L Pulse Oximetry 96 96 Oxygen Delivery Method 06/05/24 11:01 06/05/24 11:01 06/05/24 11:28 Temperature Pulse Rate 85 84 Respiratory Rate 32 H 21 Blood Pressure 180/70 H Pulse Oximetry 95 97 Oxygen Delivery Method 06/05/24 11:29 06/05/24 11:29 06/05/24 11:30 Temperature Pulse Rate 86 Respiratory Rate 23 Blood Pressure 162/68 H 145/63 H Pulse Oximetry 96 Oxygen Delivery Method 06/05/24 11:30 06/05/24 11:45 06/05/24 11:45 Temperature Pulse Rate 85 83 Respiratory Rate 19 29 H Blood Pressure 144/62 H Pulse Oximetry 97 96 Oxygen Delivery Method 06/05/24 12:00 06/05/24 12:00 06/05/24 12:15 Temperature Pulse Rate 80 84 Respiratory Rate 22 26 H Blood Pressure 148/67 H Pulse Oximetry 96 96 Oxygen Delivery Method 06/05/24 12:15 Temperature Pulse Rate Respiratory Rate Blood Pressure 154/69 H Pulse Oximetry Oxygen Delivery Method MDM - Abdominal Pain Differential Diagnosis Differential diagnosis: Likely other (ACS, pneumonia, electrolyte abnormality, pancreatitis) Lab Data 06/05/24 10:00 06/05/24 10:00 Labs: Lab Results 06/05/24 Range/Units 10:00 WBC 8.2 (4.5-11.0) X10^3/uL RBC 4.57 (4.0-5.2) X10^6/uL Hgb 13.2 (12.0-16.0) g/dL Hct 39.3 (36-46) % MCV 85.9 (80-100) fL MCH 28.9 (26-34) PG MCHC 33.6 (30-36) % RDW 15.2 H (11.6-14.8) % Plt Count 383 (150-400) X10^3/uL Neut % (Auto) 74.7 (50-75) % Lymph % (Auto) 20.5 L (25-40) % [place] % (Auto) 3.9 (3-14) % Eos % (Auto) 0.4 L (2-4) % Baso % (Auto) 0.5 (0-2) % Neut # (Auto) 6100 (1861-6158) /uL Lymph # (Auto) 1700 (8054-5657) /uL [place] # (Auto) 300 (0-900) /uL Eos # (Auto) 0 (0-450) /uL Baso # (Auto) 0 (0-100) /uL Sodium 132 L (137-145) mmol/L Potassium 5.0 (3.4-5.1) mmol/L Chloride 98 (98-107) mmol/L Carbon Dioxide 25 (22-32) mmol/L BUN 26 H (7-17) mg/dL Creatinine 1.04 (0.52-1.04) mg/dL Estimated GFR 52 L (>60) mL/min BUN/Creatinine Ratio 25.0 H (6-22) Glucose 142 H (80-110) mg/dL Calcium 9.7 (8.4-10.2) mg/dL Magnesium 2.0 (1.6-2.3) mg/dL Total Bilirubin 0.9 (0.2-1.3) mg/dL AST 42 H (14-36) IU/L ALT 22 (<35) IU/L Alkaline Phosphatase 92 (38-126) U/L Total Creatine Kinase 59 (30-135) U/L Troponin I < 0.012 (0.01-0.034) ng/mL Total Protein 8.3 H (6.3-8.2) g/dL Albumin 4.5 (3.5-5.0) g/dL Globulin 3.8 (1.7-4.1) g/dL Albumin/Globulin Ratio 1.2 (1.0-2.8) Lipase 98 (23-300) U/L Point of care testing: Urine Dip Bedside Urine Glucose Negative Bedside Urine Bilirubin - Negative Bedside Urine Ketone - Negative Urine Specific [place] 1.010 Bedside Urine Occult Blood - Negative Bedside Urine pH 8.5 Bedside Urine Protein - Negative Bedside Urine Urobilinogen - Negative Bedside Urine Nitrite - Negative Bedside Urine Leukocytes - Negative Esterase Imaging Data CT scan - abdomen/pelvis: Radiologist's Impression: [address] [address] [address] Scan Report Signed Patient: Karena Abbasi MR#: [id number] : 1940 Acct:[id number] Age/Sex: 84 / F Date of Service: 06/05/24 Loc: ED Accession Number: [id number] Procedure: CT abdomen pelvis w con Ordering Provider: Denis Villasenor D.O. PROCEDURE: CT ABDOMEN PELVIS W CON INDICATIONS: epigastric pain TECHNIQUE: After the administration of intravenous contrast, axial sections acquired from the lung bases to the pubic symphysis. Coronal and sagittal reformats were performed. For radiation dose reduction, the following was used: automated exposure control, adjustment of mA and/or kV according to patient size. COMPARISON: [facility], CT, CT ABDOMEN PELVIS W CON, 04/28/2024, 13:46. FINDINGS: Image quality: Diagnostic. Lower Chest: No significant findings. ABDOMEN: Liver: No solid mass. Gallbladder: Absent Biliary ducts: There is dilatation of the biliary tree post cholecystectomy. However, there appears to be slight short interval increase in the amount of biliary ductal dilatation. Cannot exclude a distal obstructing stone. Pancreas: No ductal dilation. Spleen: Size is within normal limits. Adrenal Glands: No adrenal nodules. Kidneys and Ureters: No hydronephrosis. No solid mass. No complex renal cystic lesion which requires follow up. Stomach and Bowel: Small bowel obstruction with a clearly defined transition point present on image 80 of axial series 2. Proximal small bowel is dilated up to 3.2 cm. Diverticulosis without evidence of acute diverticulitis. Remote partial distal colectomy, likely of the sigmoid. Peritoneum: No abnormal intraperitoneal fluid. No free air. Ventral Wall: No significant ventral hernia. Abdominal Nodes: No retroperitoneal or mesenteric adenopathy by size criteria. Vessels: Aorta and inferior vena cava are normal in size. PELVIS: Pelvic Organs: Uterus is surgically absent. No adnexal masses. Bladder: No bladder wall thickening, accounting for underdistention. Pelvic Nodes: No enlarged lymph nodes. Miscellaneous: No inguinal hernias are seen. Bones: No aggressive osseous abnormality. IMPRESSION: 1. There is a definite small-bowel obstruction. 2. Remote cholecystectomy and hysterectomy. 3. Short interval increase in the amount of biliary ductal dilatation, suggesting possible distal common duct stone. Chest x-ray: Radiologist's Impression: [address] [address] XRay Report Signed Patient: Karena Abbasi MR#: [id number] : 1940 Acct:[id number] Age/Sex: 84 / F Date of Service: 06/05/24 Loc: Accession Number: [id number] Procedure: XR chest 1V Ordering Provider: Denis Villasenor D.O. PROCEDURE: XR CHEST 1V INDICATIONS: epigastric pain TECHNIQUE: One view of the chest was acquired. COMPARISON: [facility], CR, XR CHEST 2V, 12/22/2023, 12:37. [facility], CR, XR CHEST 1V, 01/22/2023, 16:44. FINDINGS: Surgical changes and devices: None. Lungs and pleura: Streaky left basilar opacity, likely a pleural parenchymal band. No consolidation or pneumothorax. Mediastinum: Mediastinal contours appear normal. Heart size is normal. Bones and chest wall: No suspicious bony lesions. Overlying soft tissues appear unremarkable. IMPRESSION: No acute cardiopulmonary abnormality is seen. US - abdomen: Radiologist's Impression: [address] [address] Ultrasound Report Signed Patient: Karena Abbasi MR#: [id number] : 1940 Acct:[id number] Age/Sex: 84 / F Date of Service: 06/05/24 Loc: ED Accession Number: [id number] Procedure: US abdomen limited Ordering Provider: Denis Villasenor D.O. PROCEDURE: US ABDOMEN LIMITED INDICATIONS: PROMINENT CBD ON CT TECHNIQUE: Real-time scanning was performed of the abdominal and retroperitoneal organs, with image documentation. COMPARISON: [facility], CT, CT ABDOMEN PELVIS W CON, 06/05/2024, 11:13. FINDINGS: Liver: Liver is normal in size and homogeneous in echotexture. Gallbladder: Absent Biliary ducts: Intrahepatic bile ducts are non-dilated. Extrahepatic bile duct caliber measures 10 mm. Normal is 6-7 mm or less in diameter, or 10 mm or less post-cholecystectomy. Pancreas: Visualized portions of the pancreas are sonographically normal. Miscellaneous: No free abdominal fluid. IMPRESSION: 1. Remote cholecystectomy. 2. The extrahepatic duct, where measured, at the level of the common hepatic duct/hilum of the liver, measures 10 mm. This is within normal limits post cholecystectomy. However, there is been interval increase in the size of the biliary tree in a short interval, based on 2 CTs that were performed approximately 1.5 months apart. Cannot exclude a distal common duct stone. ECG Data Interpretation: EKG interpreted by ED physician, sinus 82 beats per minute normal axis QTC [address] changes no STEMI MDM Narrative Medical decision making narrative: 84-year-old female with a past medical history of hypertension pancreatitis presents from home via EMS for evaluation of epigastric pain nausea vomiting ongoing since yesterday worsening over the past day. Patient states similar to when she was diagnosed with pancreatitis. Receive 4 mg IV Zofran prior to arrival by EMS with minimal relief. EKG nonischemic in nature. Chest x-ray without any acute cardiopulmonary abnormalities. CT scan showing dilated common bile duct patient without any elevated bilirubin, liver function tests, ultrasound ordered to further evaluate common bile duct in the setting of patient with a history of cholecystectomy. Lab work without any leukocytosis. CT scan only showing common ductal dilation, ultrasound of the abdomen showing slight elevation of this measuring approximately 10 mm however this is within normal limits status post cholecystectomy, patient had complete resolution of symptoms here in the emergency department, patient not requiring urgent or emergent ERCP versus MRCP at this time, he is instructed to follow up with GI and PCP in outpatient setting for her symptoms. Patient was given strict return precautions she verbalized understanding of this and agrees to being discharged home with outpatient follow up Discharge Plan Departure Patient Disposition: Home Clinical Impression: Acute epigastric pain, Common bile duct dilatation Activity Restrictions/Additional Instructions: Please follow up with GI and your primary care doctor for continued evaluation and treatment of your symptoms Please read the discharge instructions sheet carefully and bring all papers to all doctor follow-up visits, as it may contain information that your doctor may want to see. Disease processes change and evolve, if your symptoms worsen or if you develop any new symptoms that are concerning to you please return for evaluation. Your evaluation today does not show any evidence of any life-threatening/serious illnesses requiring admission to the hospital or surgery. Please follow-up with your doctor for re-evaluation in approximately 1 day. Seek immediate medical attention for any worrisome symptoms. *If you do not have a primary care provider please contact the [facility] Resource line at [phone]. They will ask some questions about your medical history and help get you set up with a doctor in the community. Prescriptions: New metoclopramide HCl [Reglan] 10 mg tablet 10 mg PO BID PRN (Reason: nausea and vomiting) 5 Days Qty: 10 0RF No Action metoprolol succinate 25 mg tablet extended release 24 hr 12.5 mg PO DAILY clonazepam 0.5 mg tablet 0.5 mg PO DAILY diltiazem HCl 180 mg capsule,extended release 24hr 180 mg PO DAILY duloxetine 30 mg capsule,delayed release(DR/EC) 30 mg PO DAILY gabapentin 100 mg capsule 100 mg PO 3XD furosemide 20 mg tablet 20 mg PO DAILY meloxicam 15 mg tablet 15 mg PO DAILY omeprazole 20 mg capsule,delayed release(DR/EC) 20 mg PO BID losartan-hydrochlorothiazide 100-12.5 mg tablet 1 tab PO DAILY acyclovir 400 mg tablet 400 mg PO DAILY multivitamin Tablet 1 tab PO DAILY cyanocobalamin (vitamin B-12) 1 tab PO DAILY vitamin A-vitamin C-vit E-min Tablet 1 tab PO DAILY magnesium 1 tab PO DAILY potassium chloride 10 mEq tablet extended release 10 meq PO DAILY rosuvastatin 5 mg tablet 2.5 mg PO DAILY hydroxyzine HCl 50 mg tablet 50 mg PO DAILY pantoprazole [Protonix] 40 mg tablet,delayed release (DR/EC) 40 mg PO Q12H Qty: 60 3RF sucralfate 100 mg/mL Suspension 1 gm PO Q6HR Qty: 120 1RF Referrals: Dennis Collins MD [Primary Care Provider] - Stand Alone Forms: Patient Portal/API/Survey
--- NOTE | 2024-06-05 10:07 | EKG_ITS ---
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
[2024-06-05 10:16] LABS: Add Manual Diff / Slide Review NO; Basophils Absolute Auto 0 /uL (0-100); Basophils Percent Auto 0.5 % (0-2); Eosinophils Absolute Auto 0 /uL (0-450); Eosinophils Percent Auto 0.4 % (2-4); Hematocrit 39.3 % (36-46); Hemoglobin 13.2 g/dL (12.0-16.0); Lymphocytes Absolute Auto 1700 /uL (1100-4500); Lymphocytes Percent Auto 20.5 % (25-40); Mean Corpuscular HGB Conc 33.6 % (30-36); Mean Corpuscular Hemoglobin 28.9 PG (26-34); Mean Corpuscular Volume 85.9 fL (80-100); Monocytes Absolute Auto 300 /uL (0-900); Monocytes Percent Auto 3.9 % (3-14); Neutrophils Absolute Auto 6100 /uL (1500-7000); Neutrophils Percent Auto 74.7 % (50-75); Platelet Count 383 X10^3/uL (150-400); Red Blood Cell Count 4.57 X10^6/uL (4.0-5.2); Red Cell Distribution Width 15.2 % (11.6-14.8); White Blood Cell Count 8.2 X10^3/uL (4.5-11.0)
[2024-06-05 10:28] LABS: Alanine Aminotransferase 22 IU/L (<35); Albumin 4.5 g/dL (3.5-5.0); Albumin Globulin Ratio 1.2 (1.0-2.8); Alkaline Phosphatase 92 U/L (38-126); Aspartate Aminotransferase 42 IU/L (14-36); Bilirubin Total 0.9 mg/dL (0.2-1.3); Blood Urea Nitrogen 26 mg/dL (7-17); Calcium 9.7 mg/dL (8.4-10.2); Carbon Dioxide 25 mmol/L (22-32); Chloride 98 mmol/L (98-107); Creatine Kinase 59 U/L (30-135); Estimated Glomerular Filt Rate 52 mL/min (>60); Globulin 3.8 g/dL (1.7-4.1); Glucose 142 mg/dL (80-110); Lipase 98 U/L (23-300); Sodium 132 mmol/L (137-145); Total Protein 8.3 g/dL (6.3-8.2)
[2024-06-05 10:29] LABS: HEMOLYSIS 132 (0-50)
[2024-06-05 10:40] LABS: Troponin I < 0.012 ng/mL (0.01-0.034)
[2024-06-05] MEDS: FAMOTIDINE 20 MG/2 ML VIAL IV (10:40)
[2024-06-05] MEDS: METOCLOPRAMIDE 10 MG/2 ML INJ IV (10:40)
[2024-06-05] MEDS: MORPHINE 2 MG/ML INJ IV (12:11)
--- NOTE | 2024-06-05 13:50 | DI.US.S_ITS ---
PROCEDURE: US ABDOMEN LIMITED INDICATIONS: PROMINENT CBD ON CT TECHNIQUE: Real-time scanning was performed of the abdominal and retroperitoneal organs, with image documentation. COMPARISON: [facility], CT, CT ABDOMEN PELVIS W CON, 06/05/2024, 11:13. FINDINGS: Liver: Liver is normal in size and homogeneous in echotexture. Gallbladder: Absent Biliary ducts: Intrahepatic bile ducts are non-dilated. Extrahepatic bile duct caliber measures 10 mm. Normal is 6-7 mm or less in diameter, or 10 mm or less post-cholecystectomy. Pancreas: Visualized portions of the pancreas are sonographically normal. Miscellaneous: No free abdominal fluid. IMPRESSION: 1. Remote cholecystectomy. 2. The extrahepatic duct, where measured, at the level of the common hepatic duct/hilum of the liver, measures 10 mm. This is within normal limits post cholecystectomy. However, there is been interval increase in the size of the biliary tree in a short interval, based on 2 CTs that were performed approximately 1.5 months apart. Cannot exclude a distal common duct stone. Comment: Consider nonemergent MRCP if suspect distal common duct stone. Dictated by: Jose Carvajal M.D. on 06/05/2024 at 14:45 Approved by: Jose Carvajal M.D. on 06/05/2024 at 14:48
== END 2024-06-05 15:30 | disposition home or self-care (01) ==
PROVIDERS: Emergency Provider Student in an Organized Health Care Education/Training Program; Family Provider Family Medicine; PCP Family Medicine
DX: R11.2 Nausea with vomiting, unspecified (principal); R10.13 Epigastric pain; K83.8 Other specified diseases of biliary tract; Z87.19 Personal history of other diseases of the digestive system
CPT/HCPCS: 71045; 74177; 76705; 80053; 81003; 82550; 83690; 83735; 84484; 85025; 93005; 96374; 96375; 99283; 99284; J2270; J2765; Q9967

== ENCOUNTER → 2024-06-23 12:51 | Outpatient (CLI) | payer OTHER, SELFPAY ==
[2022-03-12 13:34] VITALS: BMI 24.2
--- NOTE | 2024-06-23 12:52 | DI.MRI.S_ITS ---
PROCEDURE: MR AB PANCREATIC/MRCP PROTOCOL INDICATIONS: COMMON BILE DUCK DILATATION,EPI PAIN TECHNIQUE: Coronal HASTE through the abdomen, axial 2-D FLASH in- and [id number], and breath-hold T2 FSE with fat saturation through the biliary system and pancreas. Oblique coronal and axial thin-slice HASTE, radial thick-slab HASTE centered on the extrahepatic bile ducts. Intravenous secretin: Not requested. COMPARISON: None. FINDINGS: Image quality: Diagnostic. Gallbladder: Absent. Biliary ducts: Common bile duct measures 7 mm, within normal limits status post cholecystectomy. There is smooth tapering of the common bile duct as it approaches the ampulla. Pancreas: No ductal dilation. Pancreatic divisum versus prominent accessory duct. OTHER: Lung bases: Unremarkable. Liver: No solid mass. Spleen: Size is within normal limits. Adrenal Glands: No adrenal nodules. Kidneys and Ureters: No hydronephrosis. No solid mass. No complex renal cystic lesion which requires follow up. Stomach and Bowel: Normal colonic caliber, without significant wall thickening. Sendy fundoplication. Colonic diverticulosis without evidence of diverticulitis. Peritoneum: No abnormal intraperitoneal fluid. No free air. Ventral Wall: No hernia. Abdominal Nodes: No retroperitoneal or mesenteric adenopathy by size criteria. Vessels: Aorta and inferior vena cava are normal in size. Bones: No aggressive osseous abnormality. IMPRESSION: No intrahepatic or extrahepatic biliary dilation, accounting for a post cholecystectomy state. Smooth tapering of the common bile duct as it approaches the ampulla. Pancreatic divisum versus prominent accessory duct. Dictated by: Kojo Lowery M.D. on 06/23/2024 at 16:14 Approved by: Kojo Lowery M.D. on 06/23/2024 at 16:22
== END ==
PROVIDERS: Family Provider Family Medicine; PCP Family Medicine; Referring Provider Physician Assistant; Visit Provider Physician Assistant
DX: K83.8 Other specified diseases of biliary tract (principal); R10.13 Epigastric pain; K57.90 Diverticulosis of intestine, part unspecified, without perforation or abscess without bleeding; Z90.49 Acquired absence of other specified parts of digestive tract
CPT/HCPCS: 74183; A9579